=== PATIENT | female | born 1960 | race Caucasian/White ===

== ENCOUNTER → 2017-07-06 | Outpatient (CLI) | payer BC, OTHER | LOC: M RAD 10:33 | DX: Z12.31 Encounter for screening mammogram for malignant neoplasm of breast (principal) | CPT/HCPCS: 77067 ==

== ENCOUNTER → 2018-09-02 | Outpatient (CLI) | payer BC, OTHER ==
--- NOTE | 2018-09-02 10:20 | REPMRS ---
Patient History The patient states she has not had a clinical breast exam in over a year. Family history of endometrial cancer in mother. 3D TOMOSYNTHESIS WAS PERFORMED. Digital Mammo Screening Bilat: September 02, 2018 - Exam #: [id number] Bilateral CC and MLO view(s) were taken. Technologist: Macarena Haider, Technologist Prior study comparison: July 06, 2017, bilateral digital mammo screening bilat performed at [facility]. FINDINGS: There are scattered fibroglandular densities. There has been no change in the appearance of the mammogram from the prior studies. There is a mild amount of residual fibroglandular tissue which is fairly symmetric. There is no interval development of dominant mass, architectural distortion, or clustered microcalcification suggestive of malignancy. Assessment: BI-RADS/ACR category 1 mammogram. Negative Mammogram. Recommendation Routine screening mammogram in 1 year (for women over age 40). This mammogram was interpreted with the aid of an FDA-approved computer-aided dectection system. Electronically Signed By: Sean Tony MD 09/02/18 1835
== END ==
LOC: M RAD 09:01
PROVIDERS: ATTEND Internal Medicine
DX: Z12.31 Encounter for screening mammogram for malignant neoplasm of breast (principal)

== ENCOUNTER 2019-07-03 21:47 | Emergency (ER) | payer BC, OTHER ==
[~2019-07-03] VITALS: Ht 165.1 cm; Wt 110.5 kg
[2019-07-03] MEDS ORDERED: LEVO112T2 PO (21:58)
[2019-07-03] MEDS ORDERED: BREO1INH3 PO (21:58)
[2019-07-03] MEDS ORDERED: PANT20TA2 PO (23:31)
[2019-07-03] MEDS ORDERED: PRED20TA PO (23:53)
[2019-07-04 00:24] VITALS: BP 130/68
--- NOTE | 2019-07-04 01:16 | REP ---
Clinical: Trauma. Technique: AP, lateral, bilateral oblique and sunrise views of the left knee. Findings: Generalized age-related changes are appreciated. There is no evidence for acute fracture or dislocation. No obvious effusion. There is an ovoid somewhat lucent area within the tibial metaphysis demonstrating internal chondroid matrix which is not identifiable on prior examination. Lesion is otherwise nonspecific by current evaluation. Impression: 1. Generalized age-related changes without evidence for acute fracture or dislocation. 2. Somewhat lucent lesion with internal chondroid matrix in the tibial metaphyseal region which appears to represent a change from prior examination. Consider CT or MRI followup for further investigation. Electronically Signed by Júnior Paredes MD 07/04/2019 01:07 A
== END 2019-07-04 00:25 | disposition home or self-care (01) ==
LOC: M ED 21:47
DX: S89.92XA Unspecified injury of left lower leg, initial encounter (principal); R93.7 Abnormal findings on diagnostic imaging of other parts of musculoskeletal system; W00.0XXA Fall on same level due to ice and snow, initial encounter; Y92.511 Restaurant or cafe as the place of occurrence of the external cause; Y93.01 Activity, walking, marching and hiking; Z98.84 Bariatric surgery status; Z91.040 Latex allergy status; Z88.1 Allergy status to other antibiotic agents; Z79.899 Other long term (current) drug therapy; Z79.51 Long term (current) use of inhaled steroids

== ENCOUNTER → 2020-05-13 | Outpatient (CLI) | payer BC, OTHER ==
[~2020-05-13] MED LIST: BREO1INH3 PO; LEVO112T2 PO; PANT20TA6 PO; PRED20TA PO
== END ==
LOC: M LABSMTC 12:09
PROVIDERS: ATTEND Anesthesiology
DX: Z01.812 Encounter for preprocedural laboratory examination (principal); Z20.828 Contact with and (suspected) exposure to other viral communicable diseases

== ENCOUNTER 2020-05-18 07:13 | Day surgery (SDC) | payer BC, OTHER ==
[~2020-05-18] VITALS: Ht 165.1 cm; Wt 111.1 kg
[2020-05-18] MEDS: NS 1,000 ML IV ONE (08:29)
[2020-05-18] MEDS ORDERED: propofoL 200 MG/20 ML VIAL As Ordered ONE (08:40)
--- NOTE | 2020-05-18 09:25 | ROOR ---
Patient Name: Sabrina Dow-keating Procedure Date: 05/18/2020 8:37 AM Date of : 1960 Age: 59 Room: [facility] Gender: Female Note Status: Finalized Procedure: Colonoscopy Indications: Screening for colorectal malignant neoplasm Providers: Parminder White MD Referring MD: SAMINA PETERS MD Requesting Provider: Medicines: Monitored Anesthesia Care Complications: No immediate complications. Procedure: Pre-Anesthesia Assessment: - Prior to the procedure, a History and Physical was performed, and patient medications and allergies were reviewed. The patient is competent. The risks and benefits of the procedure and the sedation options and risks were discussed with the patient. All questions were answered and informed consent was obtained. Patient identification and proposed procedure were verified by the physician, the nurse and the anesthesiologist in the procedure room. Mental Status Examination: alert and oriented. Airway Examination: normal oropharyngeal airway and neck mobility. Respiratory Examination: clear to auscultation. CV Examination: normal. Prophylactic Antibiotics: The patient does not require prophylactic antibiotics. Prior Anticoagulants: The patient has taken no previous anticoagulant or antiplatelet agents. ASA Grade Assessment: II - A patient with mild systemic disease. After reviewing the risks and benefits, the patient was deemed in satisfactory condition to undergo the procedure. The anesthesia plan was to use monitored anesthesia care (MAC). Immediately prior to administration of medications, the patient was re-assessed for adequacy to receive sedatives. The heart rate, respiratory rate, oxygen saturations, blood pressure, adequacy of pulmonary ventilation, and response to care were monitored throughout the procedure. The physical status of the patient was re-assessed after the procedure. The Colonoscope was introduced through the anus and advanced to the terminal ileum, with identification of the appendiceal orifice and IC valve. The colonoscopy was performed without difficulty. The patient tolerated the procedure well. The quality of the bowel preparation was good. The terminal ileum, ileocecal valve, appendiceal orifice, and rectum were photographed. Scope insertion time was 3 minutes. Scope withdrawal time was 9 minutes. The total duration of the procedure was 12 minutes. Findings: The perianal and digital rectal examinations were normal. The terminal ileum appeared normal. Two sessile polyps were found in the transverse colon and ascending colon. The polyps were 6 to 8 mm in size. These polyps were removed with a cold snare. Resection and retrieval were complete. To close a defect after polypectomy, two hemostatic clips were successfully placed. There was no bleeding at the end of the procedure. Verification of patient identification for the specimen was done by the physician and nurse using the patient's name, date and medical record number. Estimated blood loss was minimal. The colon (entire examined portion) was moderately tortuous. Non-bleeding external and internal hemorrhoids were found during retroflexion. The hemorrhoids were medium-sized. Impression: - The examined portion of the ileum was normal. - Two 6 to 8 mm polyps in the transverse colon and in the ascending colon, removed with a cold snare. Resected and retrieved. Clips were placed. - Tortuous colon. - Non-bleeding external and internal hemorrhoids. Recommendation: - Patient has a contact number available for emergencies. The signs and symptoms of potential delayed complications were discussed with the patient. Return to normal activities tomorrow. Written discharge instructions were provided to the patient. - High fiber diet. - Continue present medications. - Await pathology results. - Repeat colonoscopy in 5-10 years for surveillance based on pathology results. - Telephone GI clinic for pathology results in 2 weeks. - Return to primary care physician. Procedure Code(s): --- Professional --- 97508, Colonoscopy, flexible; with removal of tumor(s), polyp(s), or other lesion(s) by snare technique Diagnosis Code(s): --- Professional --- Z12.11, Encounter for screening for malignant neoplasm of colon K64.8, Other hemorrhoids K63.5, Polyp of colon Q43.8, Other specified congenital malformations of intestine CPT copyright 2019 [employer] [place] [employer]. All rights reserved. The codes documented in this report are preliminary and upon car rental sales assistant review may be revised to meet current compliance requirements. Parminder White MD Parminder White MD 05/18/2020 9:25:33 AM Electronically signed by Parminder White MD Number of Addenda: 0 Note Initiated On: 05/18/2020 8:37 AM Estimated Blood Loss: Estimated blood loss was minimal.
[2020-05-18 09:30] VITALS: BP 137/73
== END 2020-05-18 09:45 | disposition home or self-care (01) ==
LOC: M OPP 07:13
PROVIDERS: ATTEND Internal Medicine Gastroenterology
DX: Z12.11 Encounter for screening for malignant neoplasm of colon (principal); K63.5 Polyp of colon; K64.8 Other hemorrhoids; Q43.8 Other specified congenital malformations of intestine; E03.9 Hypothyroidism, unspecified; Z79.899 Other long term (current) drug therapy; Z88.1 Allergy status to other antibiotic agents; Z88.5 Allergy status to narcotic agent; Z91.040 Latex allergy status

== ENCOUNTER 2020-06-25 15:07 | Inpatient (IN) | payer BC, OTHER ==
[~2020-06-25] VITALS: Ht 165.1 cm; Wt 111.2 kg
--- OUTSIDE RECORDS SUMMARY | 2020-06-25 15:14 | CCD | Continuity of Care Document ---
Author Author Sabrina BLAND RP A Organization Unknown Address 3 [facility] [address] [place] [address] Phone [phone] Problems Active Problems Provider Date Hypothyroidism Bruce Contreras M.D. Onset: 4 Anemia Bruce Contreras M.D. Onset: 4 Asthma without status asthmaticus Bruce Contreras M.D. On set: 02/21/2019 Social History Type Date Description Comments Sex Unknown ETOH Use Denies alcohol use Tobacco Use Start: Unknown Patient has never smoked Recreational Drug Use Denies Drug Use Allergies, Adverse Reactions, Alerts Active Allergies Reaction Severity Comments Date Biaxin burnt mouth causing skin to peel 11/13/2013 Latex ithcing sensitivity 01/15/2020 Bandaids Itching tape and bandaids 01/15/2020 Medications Active Medications SIG Qnty Indications Ordering Provide r Date Levofloxacin 500mg Tablets 1 by mouth every day 10tabs Gaurav Lagunas D.O., FAAFP Silvadene 1% Cream top to left leg twice a day 100gm Gaurav Lagunas D.O., FAAFP Geritol Complete Tablets 1 tab by mouth once a day otc Elena Foster FNP-CALI 0 Levothyroxine Sodium 125mcg Tablet s Take 1 Tablet By Mouth Every Day 90tabs Bruce Contreras M.D . 07/28/2019 Breo Ellipta 200-25mcg/Inh Aerosol Inhale 1 puff By Mouth Every Day 60units Bruce Contreras M.D . 01/16/2018 Voltaren 1% Gel apply bilateral to legs four times a day mdd 4 gm 100gm Bruce Contreras M.D . 07/31/2016 History Medications Nucynta 50mg Tablets 1 by mouth twice a day (Istop: [id number]) 14tabs Gaurav Lagunas D.O., Venkatesh [facility] 03/26/2020 - 04/02/2020 Keflex 500mg Capsules 1 tab by mouth three times a day for 10 days 30caps Gaurav Lagunas D.O., Venkatesh [facility] 03/24/2020 - 03/26/2020 Medications Administered in Office Medication SIG Qnty Indications Ordering Provider Date Injection (SC)/(Im) Injection Steve Bland RPA 03/24/2020 Immunizations CPT Code Status Date Vaccine Lot # [id number] Given 03/24/2020 Tdap Tetanus,Dip htheria Toxoids/Acellular Pertussis 7Yrs Or Older [id number] Given 03/02/2020 Influenza Virus Vaccine, Quadrivalent, Slit Virus, Im Use 3Y & Up Vital Signs Date Vital Result Comment 03/26/2020 10:51am BP Systolic 102 mmHg BP Diastolic 70 mmHg Body Temperature 98.0 F Heart Rate 87 /min Respiratory Rate 16 /min Height 65 inches 5'5" [place] Body Weight 125 lb O2 % BldC Oximetry 96 % 03/24/2020 12:04pm BP Systolic 124 mmHg BP Diastolic 64 mmHg Body Temperature 97.8 F Heart Rate 83 /min Respiratory Rate 16 /min Height 65 inches 5'5" Weight 246.00 lb [place] Body Weight 125 lb BMI (Body Mass Index) 40.9 kg/m2 O2 % BldC Oximetry 97 % Results Test Acquired Date Facility Test Result H/L Range Note Aerobic Bacterial Culture 03/24/2020 [facility] [place] Aerobic Bacterial Culture Final report 1 , 2 Result 1 See Comment: 3 Laboratory test finding 02/24/2020 [facility] TSH 4.500 ulU/mL 0.60 - 4.8 CMP 02/24/2020 [facility] Glu 98 mg/dL 70 - 110 4 BUN 13 mg/dL 8 - 23 Creat 0.7 mg/dL 0.5 - 1.0 BUN/Creatinine Ratio 17.5 CALC Na 140 mmol/L 136 - 145 K 4.5 mmol/L 3.5 - 5.1 CL 106.6 mmol/L 98.0 - 107.0 Co2 23.7 mmol/L 22.0 - 29.0 CA 9.0 mg/dL 8.6 - 10.2 TP 6.2 g/dL Low 6.6 - 8.7 Alb 4.3 g/dL 3.4 - 4.8 A/G Ratio 2.2 CALC Globulin 1.9 CALC Alp 80.4 U/L 35 - 129 Alt (SGPT) 20 U/L 0 - 41 Ast (Sgot) 19 U/L 0 - 40 Tbili 0.59 mg/dL 0.0 - 1.2 Osmolality-Calculated 279.6 CALC Anion Gap 14 mmol/L eGFR 109 # Calc 5 eGFR Non-Afr. Cambodian 94 # Calc 6 1 SRC:LEFT LEG WOUND 2 Source of Specimen: LEFT LEG WOUND 3 Source of Specimen: LEFT LEG WOUND No growth in 36 - 48 hours. 4 CHRONIC KIDNEY DISEASE STAGI NG PER NKF: MALE GFR INTERPRETATION: 20-49 YRS: >60 mL/min Normal 50-59 YRS: >56 mL/min Normal 60-69 YRS: >49 mL/min Normal 70-79 YRS: >42 mL/min Normal 80 and above >35 mL/min Normal FEMALE GRF INTERPRETATION: 20-39 YRS: >60 mL/min Normal 40-49 YRS: >58 mL/min Normal 50-59 YRS: >51 mL/min Normal 60-69 YRS: >45 mL/min Normal 70-79 YRS: >39 mL/min Normal 80 and above >32 mL/min Normal 5 CKD-EPI 6 CKD-EPI Procedures Date Code Description Status 03/24/2020 71994 Injection (SC)/(Im) Completed 01/15/2020 73725 Electrocardiogram Complete Compl eted 01/15/2020 52841 Electrocardiogram Complete Compl eted 09/02/2018 [id number] Mammogram Completed Medical Devices Description No Information Available Encounters Type Date Location Provider Dx Diagnosis Office Visit 03/26/2020 10:40a [place] [facility] Steve Bland, RP A L03.116 Cellulitis of left lower limb S80.812A Abrasion, left lower leg, in itial encounter Office Visit 03/24/2020 11:30a [facility] Steve Bland, RP A L03.116 Cellulitis of left lower limb S80.812A Abrasion, left lower leg, in itial encounter Office Visit 03/02/2020 11:00a [facility] Bruce Contreras M. D. E03.9 Hypothyroidism, unspecified J45.909 Unspecified asthma, uncompli cated Z23 Encounter for immunization Office Visit 01/15/2020 2:45p [facility] Elena Foster, BAILEY-B C Z01.818 Encounter for other preprocedural examination J45.909 Unspecified asthma, uncompli cated Z01.818 Encounter for other preproce dural examination M25.50 Pain in unspecified joint J45.909 Unspecified asthma, uncompli cated Office Visit 11/24/2019 3:40p [facility] Bruce Contreras M. D. M25.50 Pain in unspecified joint Assessments Date Code Description Provider 03/26/2020 L03.116 Cellulitis of left lower limb [place] Steve robledo, RPA 03/26/2020 S80.812A Abrasion, left lower leg, initia l encounter Steve Bland, RPA 03/24/2020 L03.116 Cellulitis of left lower limb [place] Steve robledo, RPA 03/24/2020 S80.812A Abrasion, left lower leg, initia l encounter Steve Bland, RPA 03/02/2020 E03.9 Hypothyroidism, unspecified [facility] Bruce acosta M.D. 03/02/2020 J45.909 Unspecified asthma, uncomplicate d Bruce Contreras M.D. 03/02/2020 Z23 Encounter for immunization [facility] Bruce otero M.D. 02/24/2020 E03.9 Hypothyroidism, unspecified Jasvir Lagunas D.O., FAAFP 02/24/2020 M25.50 Pain in unspecified joint Kalani Lagunas D.O., FAAFP 01/15/2020 Z01.818 Encounter for other preprocedura l examination Elena Foster FNP-CALI 01/15/2020 J45.909 Unspecified asthma, uncomplicate d Elena Foster FNP-BC 01/15/2020 Z01.818 Encounter for other preprocedura l examination Elena Foster FNP-BC 01/15/2020 M25.50 Pain in unspecified joint Elena Foster FNP- 01/15/2020 J45.909 Unspecified asthma, uncomplicate d Elena Foster FNP- 11/24/2019 M25.50 Pain in unspecified joint Bruce Yepez M.D. Plan of Treatment No Information Available Functional Status Description No Information Available Mental Status Description No Information Available Referrals Refer to Dr Reason for Referral Status Appt Date [facility] *Priority Referral [place] goldsmith circumferential tissue avulsion (16cm x 2cm) right leg from dog leash. Subsequent cellulitis. On Levaquin. Much pain. Negative C&S. Sent [address] [place] [address] [phone]
--- OUTSIDE RECORDS SUMMARY | 2020-06-25 15:14 | CCD | Continuity of Care Document ---
Author Author Sabrina CONTRERAS Organization Unknown Address [address] [address] Phone [phone] Problems Active Problems Provider Date Hypothyroidism Bruce [...] SIG Qnty Indications Ordering Provide r Date Naproxen Sodium 550mg Tablets one po bid 60tabs Bruce Contreras M.D. 2020 Silvadene 1% Cream top to left leg [...] Bruce Contreras M.D . 07/31/2016 History Medications Levofloxacin 500mg Tablets 1 by mouth every day 10tabs Gaurav Lagunas D.O., FAAFP - 04/05/2020 Nucynta 50mg Tablets 1 by mouth twice a day (Istop: [id number]) 14tabs Gaurav Lagunas D.O., F AAFP 03/26/2020 - 04/02/2020 Keflex 500mg Capsules 1 tab by mouth three times a day for 10 days 30caps Gaurav Lagunas D.O., F AA 03/24/2020 - 03/26/2020 Medications Administered in Office Medication SIG Qnty Indications Ordering Provider Date Injection (SC)/(Im) Injection Steve Bland RPA 03/24/2020 Immunizations CPT Code Status Date Vaccine Lot # [id number] Given 03/24/2020 Tdap Tetanus,Dip htheria Toxoids/Acellular Pertussis 7Yrs Or Older [id number] Given 03/02/2020 Influenza Virus Vaccine, Quadrivalent, Slit Virus, Im Use 3Y & Up Vital Signs Date Vital Result Comment 2020 10:07am BP Systolic 108 mmHg BP Diastolic 68 mmHg Body Temperature 98.0 F Heart Rate 50 /min Respiratory Rate 16 /min Height 65 inches 5'5" Weight 248.00 lb [place] Body Weight 125 lb BMI (Body Mass Index) 41.3 kg/m2 O2 % BldC Oximetry 96 % 03/26/2020 10:51am BP Systolic 102 mmHg BP Diastolic 70 mmHg Body Temperature 98.0 F Heart Rate 87 /min Respiratory Rate 16 /min Height 65 inches 5'5" [place] Body Weight 125 lb O2 % BldC Oximetry 96 % Results Test Acquired Date Facility Test [...] eGFR 109 # Calc 5 eGFR Non-Afr. Nauruan 94 # Calc 6 1 SRC:LEFT LEG [...] CKD-EPI Procedures Date Code Description Status 03/24/2020 65019 Injection (SC)/(Im) Completed 01/15/2020 89145 Electrocardiogram Complete Compl eted 01/15/2020 79522 Electrocardiogram Complete Compl eted 09/02/2018 [id number] Mammogram Completed Medical Devices Description No Information Available Encounters Type Date Location Provider Dx Diagnosis Office Visit 2020 9:30a [place] [facility] Bruce Contreras M.D . M79.672 Pain in left foot M25.552 Pain in left hip Office Visit 03/26/2020 10:40a [place] [facility] Steve Bland, RP A L03.116 Cellulitis of left lower limb S80.812A Abrasion, left lower leg, in itial encounter Office Visit 03/24/2020 11:30a [place] [facility] Steve Bland, RP A L03.116 Cellulitis of left lower limb S80.812A Abrasion, left lower leg, in itial encounter Office Visit 03/02/2020 11:00a [place] [facility] Bruce Contreras M. D. E03.9 Hypothyroidism, unspecified J45.909 Unspecified asthma, uncompli cated Z23 Encounter for immunization Office Visit 01/15/2020 2:45p [place] [facility] Rounds, Elena M, APPLICATIONS SYSTEMS ANALYST-B C Z01.818 Encounter for other preprocedural examination J45.909 Unspecified asthma, uncompli cated Z01.818 Encounter for other preproce dural examination M25.50 Pain in unspecified joint J45.909 Unspecified asthma, uncompli cated Assessments Date Code Description Provider 2020 M79.672 Pain in left foot Stewart Contreras M.D. 2020 M25.552 Pain in left hip Bruce Contreras M.D. 03/26/2020 L03.116 Cellulitis of left lower limb [place] Steve robledo, RPA 03/26/2020 S80.812A Abrasion, left lower leg, initia l encounter Steve Bland, RPA 03/24/2020 L03.116 Cellulitis of left lower limb Ca Steve robledo, RPA 03/24/2020 S80.812A Abrasion, left lower leg, initia l encounter Steve Bland, RPA 03/02/2020 E03.9 Hypothyroidism, unspecified [facility] Bruce acosta M.D. 03/02/2020 J45.909 Unspecified asthma, uncomplicate d Bruce Contreras M.D. 03/02/2020 Z23 Encounter for immunization Bruce Pena M.D. 02/24/2020 E03.9 Hypothyroidism, unspecified Jasvir Lagunas D.O., FAAFP 02/24/2020 M25.50 Pain in unspecified joint Kalani Lagunas D.O., FAAFP 01/15/2020 Z01.818 Encounter for other preprocedura l examination Rounds, Elena Ricci, [facility] 01/15/2020 J45.909 Unspecified asthma, uncomplicate d Rounds, Elena Ricci [facility] 01/15/2020 Z01.818 Encounter for other preprocedura l examination Rounds, [facility] 01/15/2020 M25.50 Pain in unspecified joint Rounds , Elena RicciWAGNERPPerlita 01/15/2020 J45.909 Unspecified asthma, uncomplicate d Rounds, Elena Ricci, [facility] Plan of Treatment Future Appointment(s):* 08/23/2020 8:45 am - Laboratory [place] Schedule at [facility] * 08/30/2020 10:20 am - Bruce Contreras M.D. at [facility] Functional Status Description No Information Available Mental Status Description No Information Available Referrals Refer to Reason for Referral Status Appt Date [facility] Podiatry Dr Torres, podiatry- left foot pain- eval and rx Sent Amna Torres M.D.--Podiatry [address] [place] [address] [phone] [facility] *Priority Referral Partia lly circumferential tissue avulsion (16cm x 2cm) right leg from dog leash. Subsequent cellulitis. On Levaquin. Much pain. Negative C&S[place] [address] [phone]
--- OUTSIDE RECORDS SUMMARY | 2020-06-25 15:14 | CCD | Continuity of Care Document ---
Author Author Sabrina CONTRERAS Organization Unknown Address [address] [address] Phone [phone] Problems Active Problems Provider Date Hypothyroidism Bruce [...] 1 by mouth twice a day (Istop: 868647050) 14tabs Gaurav Lagunas D.O., F AAFP 03/26/2020 - 04/02/2020 Keflex 500mg Capsules 1 tab by mouth three times a day for 10 days 30caps Gaurav Lagunas D.O., F AA 03/24/2020 - 03/26/2020 Medications Administered in Office Medication SIG Qnty Indications Ordering Provider Date Injection (SC)/(Im) Injection Steve Bland RPA 03/24/2020 Immunizations CPT Code Status Date Vaccine Lot # [id number] Given 03/24/2020 Tdap Tetanus,Dip htheria Toxoids/Acellular Pertussis 7Yrs Or Older [id number] Given 03/02/2020 Influenza Virus Vaccine, Quadrivalent, Slit Virus, Im Use 3Y & Up Vital Signs Date Vital Result Comment 2020 10:07am BP Systolic 108 mmHg BP Diastolic 68 mmHg Body Temperature 98.0 F Heart Rate 50 /min Respiratory Rate 16 /min Height 65 inches 5'5" Weight 248.00 lb [place] Body Weight 125 lb BMI (Body Mass Index) 41.3 kg/m2 O2 % BldC Oximetry 96 % 03/26/2020 10:51am BP Systolic 102 mmHg BP Diastolic 70 mmHg Body Temperature 98.0 F Heart Rate 87 /min Respiratory Rate 16 /min Height 65 inches 5'5" [place] Body Weight 125 lb O2 % BldC [...] eGFR 109 # Calc 5 eGFR Non-Afr. Danish 94 # Calc 6 1 SRC:LEFT LEG [...] CKD-EPI Procedures Date Code Description Status 03/24/2020 95196 Injection (SC)/(Im) Completed 01/15/2020 15862 Electrocardiogram Complete Compl eted 01/15/2020 47447 Electrocardiogram Complete Compl eted 09/02/2018 38570064 Mammogram Completed Medical Devices Description No Information Available Encounters Type Date Location Provider Dx Diagnosis Office Visit 2020 9:30a [place] [facility] Bruce Contreras M.D . M79.672 Pain in left foot M25.552 Pain in left hip Office Visit 03/26/2020 10:40a [place] [facility] Steve Bland, RP A L03.116 Cellulitis of left lower limb S80.812A Abrasion, left lower leg, in itial encounter Office Visit 03/24/2020 11:30a [place] [facility] Steve Bland, RP A L03.116 Cellulitis of left lower limb S80.812A Abrasion, left lower leg, in itial encounter Office Visit 03/02/2020 11:00a [place] [facility] Bruce Contreras M. D. E03.9 Hypothyroidism, unspecified J45.909 Unspecified asthma, uncompli cated Z23 Encounter for immunization Office Visit 01/15/2020 2:45p [place] [facility] Rounds, Elena M, MEDICAL DIRECTOR/HEAD TEAM PHYSICIAN-B C Z01.818 Encounter for other preprocedural examination [...] 03/24/2020 L03.116 Cellulitis of left lower limb [facility] Steve robledo, RPA 03/24/2020 S80.812A Abrasion, left lower leg, initia l encounter Steve Bland, RPA 03/02/2020 E03.9 Hypothyroidism, unspecified [facility] Bruce acosta M.D. 03/02/2020 J45.909 Unspecified asthma, uncomplicate d Bruce Contreras M.D. 03/02/2020 Z23 Encounter for immunization Bruce Pena M.D. 02/24/2020 E03.9 Hypothyroidism, unspecified Jasvir Lagunas D.O., FAAFP 02/24/2020 M25.50 Pain in unspecified joint Kalani Lagunas D.O., FAAFP 01/15/2020 Z01.818 Encounter for other preprocedura l examination Rounds, [facility] 01/15/2020 J45.909 Unspecified asthma, uncomplicate d Rounds, Elena Ricci [facility] 01/15/2020 Z01.818 Encounter for other preprocedura l examination Rounds, [facility] 01/15/2020 M25.50 Pain in unspecified joint Rounds , Elena RicciWAGNERPPerlita 01/15/2020 J45.909 Unspecified asthma, uncomplicate d Rounds, Elena Ricci, [facility] Plan of Treatment Future Appointment(s):* 08/23/2020 8:45 am - Laboratory [place] Schedule at [facility] * 08/30/2020 10:20 am - Bruce Contreras M.D. at [facility] Functional Status Description No Information Available Mental Status Description No Information Available Referrals Refer to Reason for Referral Status Appt Date Dr Torres podiatry- left foot pain- eval and rx Created [facility] *Priority Referral [place] lly circumferential tissue avulsion (16cm x 2cm) right leg from dog leash. Subsequent cellulitis. On Levaquin. Much pain. Negative C&S. Sent [address] [place], [place] [address] [phone]
--- OUTSIDE RECORDS SUMMARY | 2020-06-25 15:14 | CCD | Continuity of Care Document ---
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 Unknown Advil 200mg Tablets 4 by mouth every day- otc as needed Unknown Breo Ellipta 100-25mcg/Inh Aerosol take 1 puff each day. Unknown Naproxen Sodium 550mg Tablets 1 by mouth twice daily as needed for pain Unknown 0 Immunizations Description No Information Available Vital Signs Description No Information Available Results Description No Information Available Procedures Description No Information Available Medical Devices Description No Information Available Encounters Description No Information Available Assessments Description No Information Available Plan of Treatment No Information Available Functional Status Functional Condition Comment Date Status Glasses Active Mental Status Description No Information Available Referrals Description No Information Available
--- OUTSIDE RECORDS SUMMARY | 2020-06-25 15:14 | CCD ---
Author Author [facility] Organization [facility] Address Unknown Phone Unavailable Care Team Providers Care Delivery Coordinator Name Role Phone Isidroneida Rudolph Unavailable PROBLEMS Type Condition ICD9-CM Code [id number] Code Onset Dates Condition S tatus SNOMED Code Notes Problem Pain of left hand M79.642 Active [id number] 3 Problem Pain in right hand M79.641 Active [id number] ALLERGIES Allergen (clinical drug ingredient) Drug/Non Drug Allergy do cumented on EMR Reaction Allergy Type Onset Date Status Environmental Unknown Non Drug Allergy Activ e clarithromycin Biaxin Mouth Sores/peeling skin Drug Allergy Active All oral narcotics (per patient) Nausea/Vomiting Non Drug Allergy Active ENCOUNTERS from 1960 to 2020-04-28 Encounter Location Date Provider Diagnosis [facility] [address] [place] [address] Apr Rudolph Lynn IMMUNIZATIONS No Information SOCIAL HISTORY Tobacco Use: Social History Observation Description Date Details (start date - stop date) Never Smoker Sex Assigned At : Social History Observation Description Sex Assigned At Unknown Alcohol Screening: Question Answer Notes Did you have a drink containing alcohol in the past year? No Points 0 Interpretation Negative Tobacco Use: Question Answer Notes Are you a: never smoker REASON FOR REFERRAL No Information VITAL SIGNS No information MEDICATIONS Medication SIG (Take, Route, Frequency, Duration) Notes Start Da te End Date Status Breo Ellipta 100-25 MCG/INH 1 puff Inhalation Once a day Active Voltaren 1 % Transdermal Active Claritin 10 MG 1 tablet Orally Once a day Not-Taking Meloxicam 7.5 MG 1 tablet Orally Once a day Not-Taking Synthroid 125 MCG 1 tablet on an empty stomach in the morn ing Orally Once a day Active PROCEDURES No Information RESULTS No Results REASON FOR VISIT Cancelation of Apt. MEDICAL (GENERAL) HISTORY Type Description Date Medical History Anemia Medical History Hypothyroidism Surgical History Right knee 2005 & 2012 Surgical History Right shoulder 2005 Surgical History Gastric Bypass 2006 Surgical History Right knee Replacement 12/2013 Surgical History Tonsillectomy Surgical History Tubal Ligation Surgical History Left shoulder 2016 Goals Section No Information Health Concerns No Information MEDICAL EQUIPMENT No Information MENTAL STATUS No Information FUNCTIONAL STATUS No Information ASSESSMENTS No Information PLAN OF TREATMENT No Information Insurance Providers Payer Name Payer Address Payer Phone Insured Name Patient Relati onship to Insured Coverage Start Date Coverage End Date [facility] [id number] [facility] [id number] [place]
--- OUTSIDE RECORDS SUMMARY | 2020-06-25 15:15 | CCD ---
Author Author [facility] Organization [facility] Address Unknown Phone Unavailable Care Team Providers Care Erector Operator Name Role Phone Josué CONTRERAS MD Unavailable Unavailable Josué CONTRERAS MD Unavailable Unavailable Josué CONTRERAS MD Unavailable Unavailable Josué CONTRERAS MD Unavailable Unavailable Josué CONTRERAS MD Unavailable Unavailable Josué CONTRERAS MD Unavailable Unavailable Josué CONTRERAS MD Unavailable Unavailable Josué CONTRERAS MD Unavailable Unavailable Josué CONTRERAS MD Unavailable Unavailable Josué CONTRERAS MD Unavailable Unavailable Josué CONTRERAS MD Unavailable Unavailable Josué CONTRERAS MD Unavailable Unavailable Josué CONTRERAS MD Unavailable Unavailable Josué CONTRERAS MD Unavailable Unavailable Josué CONTRERAS MD Unavailable Unavailable Josué CONTRERAS MD Unavailable Unavailable Josué CONTRERAS MD Unavailable Unavailable Josué CONTRERAS MD Unavailable Unavailable Josué CONTRERAS MD Unavailable Unavailable Josué CONTRERAS MD Unavailable Unavailable Josué CONTRERAS MD Unavailable Unavailable Josué CONTRERAS MD Unavailable Unavailable Josué CONTRERAS MD Unavailable Unavailable Josué CONTRERAS MD Unavailable Unavailable Josué CONTRERAS MD Unavailable Unavailable Josué CONTRERAS MD Unavailable Unavailable Josué CONTRERAS MD Unavailable Unavailable Josué CONTRERAS MD Unavailable Unavailable Josué CONTRERAS MD Unavailable Unavailable Josué CONTRERAS MD Unavailable Unavailable Josué CONTRERAS MD Unavailable Unavailable Josué CONTRERAS MD Unavailable Unavailable Josué CONTRERAS MD Unavailable Unavailable Josué CONTRERAS MD Unavailable Unavailable Josué CONTRERAS MD Unavailable Unavailable Josué CONTRERAS MD Unavailable Unavailable Josué CONTRERAS MD Unavailable Unavailable Josué CONTRERAS MD Unavailable Unavailable Josué CONTRERAS MD Unavailable Unavailable Josué CONTRERAS MD Unavailable Unavailable Josué CONTRERAS MD Unavailable Unavailable Josué CONTRERAS MD Unavailable Unavailable Josué CONTRERAS MD Unavailable Unavailable Josué CONTRERAS MD Unavailable Unavailable Josué CONTRERAS MD Unavailable Unavailable Josué CONTRERAS MD Unavailable Unavailable Josué CONTRERAS MD Unavailable Unavailable Josué CONTRERAS MD Unavailable Unavailable Josué CONTRERAS MD Unavailable Unavailable Josué CONTRERAS MD Unavailable Unavailable Josué CONTRERAS MD Unavailable Unavailable Josué CONTRERAS MD Unavailable Unavailable Josué CONTRERAS MD Unavailable Unavailable Josué CONTRERAS MD Unavailable Unavailable Josué CONTRERAS MD Unavailable Unavailable Josué CONTRERAS MD Unavailable Unavailable Josué CONTRERAS MD Unavailable Unavailable Josué CONTRERAS MD Unavailable Unavailable Josué CONTRERAS MD Unavailable Unavailable Josué CONTRERAS MD Unavailable Unavailable Josué CONTRERAS MD Unavailable Unavailable Josué CONTRERAS MD Unavailable Unavailable Josué CONTRERAS MD Unavailable Unavailable Josué CONTRERAS MD Unavailable Unavailable Josué CONTRERAS MD Unavailable Unavailable Josué CONTRERAS MD Unavailable Unavailable Josué CONTRERAS MD Unavailable Unavailable Josué CONTRERAS MD Unavailable Unavailable Josué CONTRERAS MD Unavailable Unavailable Josué CONTRERAS MD Unavailable Unavailable Josué CONTRERAS MD Unavailable Unavailable Josué CONTRERAS MD Unavailable Unavailable Josué CONTRERAS MD Unavailable Unavailable Josué CONTRERAS MD Unavailable Unavailable Josué CONTRERAS MD Unavailable Unavailable VY, J ALEX DPM PC Unavailable Unavailable VY, J ALEX DPM PC Unavailable Unavailable VY, J ALEX DPM PC Unavailable Unavailable VY, J ALEX DPM PC Unavailable Unavailable VY, J ALEX DPM PC Unavailable Unavailable VY, J ALEX DPM PC Unavailable Unavailable VY, J ALEX DPM PC Unavailable Unavailable VY, J ALEX DPM PC Unavailable Unavailable VY, J ALEX DPM PC Unavailable Unavailable VY, J ALEX DPM PC Unavailable Unavailable VY, J ALEX DPM PC Unavailable Unavailable VY, J ALEX DPM PC Unavailable Unavailable VY, J ALEX DPM PC Unavailable Unavailable VY J ALEX DPM PC Unavailable Unavailable VY, J ALEX DPM PC Unavailable Unavailable VY, J ALEX DPM PC Unavailable Unavailable VY J ALEX DPM PC Unavailable Unavailable VY, J ALEX DPM PC Unavailable Unavailable VY J ALEX DPM PC Unavailable Unavailable VY J ALEX DPM PC Unavailable Unavailable VY, J ALEX DPM PC Unavailable Unavailable VY, J ALEX DPM PC Unavailable Unavailable VY J ALEX DPM PC Unavailable Unavailable VY, J ALEX DPM PC Unavailable Unavailable VY, J ALEX DPM PC Unavailable Unavailable Edwina, D Steve PA Unavailable Unavailable Edwina, D Steve PA Unavailable Unavailable Edwina, D Steve PA Unavailable Unavailable Edwina, D Steve PA Unavailable Unavailable Edwina, D Steve PA Unavailable Unavailable Edwina, D Steve PA Unavailable Unavailable Edwina, D Steve PA Unavailable Unavailable Edwina, D Steve PA Unavailable Unavailable Edwina, D Steve PA Unavailable Unavailable Edwina, D Steve PA Unavailable Unavailable Edwina, D Steve PA Unavailable Unavailable Edwina, D Steve PA Unavailable Unavailable Edwina, D Steve PA Unavailable Unavailable Edwina, D Steve PA Unavailable Unavailable Edwina, D Steve PA Unavailable Unavailable Edwina, D Steve PA Unavailable Unavailable Edwina, D Steve PA Unavailable Unavailable Edwina, D Steve PA Unavailable Unavailable Edwina, D Steve PA Unavailable Unavailable Edwina, D Steve PA Unavailable Unavailable Edwina, D Steve PA Unavailable Unavailable Edwina, D Steve PA Unavailable Unavailable Edwina, D Steve PA Unavailable Unavailable Edwina, D Steve PA Unavailable Unavailable Edwina, D Steve PA Unavailable Unavailable Edwina, D Steve PA Unavailable Unavailable Edwina, D Steve PA Unavailable Unavailable Edwina, D Steve PA Unavailable Unavailable Edwina, D Steve PA Unavailable Unavailable Edwina, D Steve PA Unavailable Unavailable Edwina, D Steve PA Unavailable Unavailable Edwina, D Steve PA Unavailable Unavailable Edwina, D Steve PA Unavailable Unavailable Edwina, D Steve PA Unavailable Unavailable Edwina, D Steve PA Unavailable Unavailable Edwina, D Steve PA Unavailable Unavailable Edwina, D Steve PA Unavailable Unavailable Edwina, D Steve PA Unavailable Unavailable Edwina, D Steve PA Unavailable Unavailable Edwina, D Steve PA Unavailable Unavailable Edwina, D Steve PA Unavailable Unavailable Edwina, D Steve PA Unavailable Unavailable Edwina, D Steve PA Unavailable Unavailable Edwina, D Steve PA Unavailable Unavailable Edwina, D Steve PA Unavailable Unavailable Edwina, D Steve PA Unavailable Unavailable Edwina, D Steve PA Unavailable Unavailable Edwina, D Steve PA Unavailable Unavailable Edwina, D Steve PA Unavailable Unavailable Edwina, D Steve PA Unavailable Unavailable Edwina, D Steve PA Unavailable Unavailable Edwnia, D Steve PA Unavailable Unavailable Edwina, D Steve PA Unavailable Unavailable Edwina, D Steve PA Unavailable Unavailable Edwina, D Steve PA Unavailable Unavailable Edwina, D Steve PA Unavailable Unavailable Edwina, D Steve PA Unavailable Unavailable Edwina, D Steve PA Unavailable Unavailable Edwina, D Steve PA Unavailable Unavailable Edwina, D Steve PA Unavailable Unavailable Edwina, D Steve PA Unavailable Unavailable Edwina, D Steve PA Unavailable Unavailable Edwina, D Steve PA Unavailable Unavailable Josué CONTRERAS MD Unavailable Unavailable Josué CONTRERAS MD Unavailable Unavailable Josué CONTRERAS MD Unavailable Unavailable Josué CONTRERAS MD Unavailable Unavailable Josué CONTRERAS MD Unavailable Unavailable Josué CONTRERAS MD Unavailable Unavailable Josué CONTRERAS MD Unavailable Unavailable Josué CONTRERAS MD Unavailable Unavailable Josué CONTRERAS MD Unavailable Unavailable Josué CONTRERAS MD Unavailable Unavailable Josué CONTRERAS MD Unavailable Unavailable Josué CONTRERAS MD Unavailable Unavailable Josué CONTRERAS MD Unavailable Unavailable Josué CONTRERAS MD Unavailable Unavailable Josué CONTRERAS MD Unavailable Unavailable Josué CONTRERAS MD Unavailable Unavailable Josué CONTRERAS MD Unavailable Unavailable Josué CONTRERAS MD Unavailable Unavailable Josué CONTRERAS MD Unavailable Unavailable Josué CONTRERAS MD Unavailable Unavailable Josué CONTRERAS MD Unavailable Unavailable Josué CONTRERAS MD Unavailable Unavailable Josué CONTRERAS MD Unavailable Unavailable Josué CONTRERAS MD Unavailable Unavailable Josué CONTRERAS MD Unavailable Unavailable Josué CONTRERAS MD Unavailable Unavailable Josué CONTRERAS MD Unavailable Unavailable Josué CONTRERAS MD Unavailable Unavailable Josué CONTRERAS MD Unavailable Unavailable Josué CONTRERAS MD Unavailable Unavailable Josué CONTRERAS MD Unavailable Unavailable Josué CONTERRAS MD Unavailable Unavailable Josué CONTRERAS MD Unavailable Unavailable Josué CONTRERAS MD Unavailable Unavailable Josué CONTRERAS MD Unavailable Unavailable Josué CONTRERAS MD Unavailable Unavailable Josué CONTRERAS MD Unavailable Unavailable Josué CONTRERAS MD Unavailable Unavailable Josué CONTRERAS MD Unavailable Unavailable Josué CONTRERAS MD Unavailable Unavailable Josué CONTRERAS MD Unavailable Unavailable Josué CONTRERAS MD Unavailable Unavailable Josué CONTRERAS MD Unavailable Unavailable LORRAINE, H BRUCE MD Unavailable Unavailable LORRAINE, H BRUCE MD Unavailable Unavailable LORRAINE, H BRUCE MD Unavailable Unavailable LORRAINE, H BRUCE MD Unavailable Unavailable LORRAINE, H BRUCE MD Unavailable Unavailable LORRAINE, H BRUCE MD Unavailable Unavailable LORRAINE, H BRUCE MD Unavailable Unavailable LORRAINE, H BRUCE MD Unavailable Unavailable LORRAINE, H BRUCE MD Unavailable Unavailable LORRAINE, H BRUCE MD Unavailable Unavailable LORRAINE, H BRUCE MD Unavailable Unavailable LORRAINE, H BRUCE MD Unavailable Unavailable LORRAINE, H BRUCE MD Unavailable Unavailable LORRAINE, H BRUCE MD Unavailable Unavailable LORRAINE, H BRUCE MD Unavailable Unavailable LORRAINE, H BRUCE MD Unavailable Unavailable LORRAINE, H BRUCE MD Unavailable Unavailable LORRAINE, H BRUCE MD Unavailable Unavailable LORRAINE, H BRUCE MD Unavailable Unavailable LORRAINE, H BRUCE MD Unavailable Unavailable LORRAINE, H BRUCE MD Unavailable Unavailable LORRAINE, H BRUCE MD Unavailable Unavailable LORRAINE, H BRUCE MD Unavailable Unavailable LORRAINE, H BRUCE MD Unavailable Unavailable LORRAINE, H BRUCE MD Unavailable Unavailable LORRAINE, H BRUCE MD Unavailable Unavailable LORRAINE, H BRUCE MD Unavailable Unavailable LORRAINE, H BRUCE MD Unavailable Unavailable LORRAINE, H BRUCE MD Unavailable Unavailable LORRAINE, H BRUCE MD Unavailable Unavailable LORRAINE, H BRUCE MD Unavailable Unavailable LORRAINE, H BRUCE MD Unavailable Unavailable [place], A Ana PA Unavailable Unavailable [place], A Ana PA Unavailable Unavailable [place], A Ana PA Unavailable Unavailable [place], A Ana PA Unavailable Unavailable [place], A Ana PA Unavailable Unavailable Radha, A Ana PA Unavailable Unavailable Radha, A Ana PA Unavailable Unavailable Radha, A Ana PA Unavailable Unavailable Radha, A Ana PA Unavailable Unavailable Radha, A Ana PA Unavailable Unavailable [place], A Ana PA Unavailable Unavailable Radha, A Ana PA Unavailable Unavailable Radha, A Ana PA Unavailable Unavailable [place], A Ana PA Unavailable Unavailable Radha, A Ana PA Unavailable Unavailable [place], A Ana PA Unavailable Unavailable Radha, A Ana PA Unavailable Unavailable Radha, A Ana PA Unavailable Unavailable [place], A Ana PA Unavailable Unavailable Radha, A Ana PA Unavailable Unavailable Radha, A Ana PA Unavailable Unavailable Radha, A Ana PA Unavailable Unavailable [place], A Ana PA Unavailable Unavailable Radha, A Ana PA Unavailable Unavailable [place], A Ana PA Unavailable Unavailable [place], A Ana PA Unavailable Unavailable [place], A Ana PA Unavailable Unavailable Radha, A Ana PA Unavailable Unavailable Radha, A Ana PA Unavailable Unavailable Radha, A Ana PA Unavailable Unavailable MOYER, M SHIV SIDER Unavailable Unavailable MOYER, M SHIV SIDER Unavailable Unavailable MOYER, M SHIV SIDER Unavailable Unavailable MOYER, M SHIV SIDER Unavailable Unavailable MOYER, M SHIV SIDER Unavailable Unavailable MOYER, M SHIV SIDER Unavailable Unavailable MOYER, M SHIV SIDER Unavailable Unavailable MOYER, M SHIV SIDER Unavailable Unavailable MOYER, M SHIV SIDER Unavailable Unavailable MOYER, M SHIV SIDER Unavailable Unavailable MOYER, M SHIV SIDER Unavailable Unavailable MOYER, M SHIV SIDER Unavailable Unavailable MOYER, M SHIV SIDER Unavailable Unavailable MOYER, M SHIV SIDER Unavailable Unavailable MOYER, M SHIV SIDER Unavailable Unavailable MOYER, M SHIV SIDER Unavailable Unavailable MOYER, M SHIV SIDER Unavailable Unavailable MOYER, M SHIV SIDER Unavailable Unavailable MOYER, M SHIV SIDER Unavailable Unavailable MOYER, M SHIV SIDER Unavailable Unavailable MOYER, M SHIV SIDER Unavailable Unavailable MOYER, M SHIV SIDER Unavailable Unavailable MOYER, M SHIV SIDER Unavailable Unavailable MOYER, M SHIV SIDER Unavailable Unavailable MOYER, M SHIV SIDER Unavailable Unavailable MOYER, M SHIV SIDER Unavailable Unavailable MOYER, M SHIV SIDER Unavailable Unavailable MOYER, M SHIV SIDER Unavailable Unavailable MOYER, M SHIV SIDER Unavailable Unavailable MOYER, M SHIV SIDER Unavailable Unavailable MOYER, M SHIV SIDER Unavailable Unavailable MOYER, M SHIV SIDER Unavailable Unavailable MOYER, M SHIV SIDER Unavailable Unavailable MOYER, M SHIV SIDER Unavailable Unavailable MOYER, M SHIV SIDER Unavailable Unavailable MOYER, M SHIV SIDER Unavailable Unavailable MOYER, M SHIV SIDER Unavailable Unavailable MOYER, M SHIV SIDER Unavailable Unavailable MOYER, M SHIV SIDER Unavailable Unavailable MOYER, M SHIV SIDER Unavailable Unavailable MOYER, M SHIV SIDER Unavailable Unavailable MOYER, M SHIV SIDER Unavailable Unavailable MOYER, M SHIV SIDER Unavailable Unavailable MOYER, M SHIV SIDER Unavailable Unavailable MOYER, M SHIV SIDER Unavailable Unavailable MOYER, M SHIV SIDER Unavailable Unavailable MOYER, M SHIV SIDER Unavailable Unavailable MOYER, M SHIV SIDER Unavailable Unavailable MOYER, M SHIV SIDER Unavailable Unavailable MOYER, M SHIV SIDER Unavailable Unavailable MOYER, M SHIV SIDER Unavailable Unavailable MOYER, M SHIV SIDER Unavailable Unavailable MOYER, M SHIV SIDER Unavailable Unavailable MOYER M SHIV SIDER Unavailable Unavailable MOYER M SHIV SIDER Unavailable Unavailable MOYER M SHIV SIDER Unavailable Unavailable MOYER M SHIV SIDER Unavailable Unavailable MOYER, M SHIV SIDER Unavailable Unavailable ISAAC DRIVER MD Unavailable Unavailable ISAAC DRIVER MD Unavailable Unavailable ISAAC DRIVER MD Unavailable Unavailable ISAAC DRIVER MD Unavailable Unavailable ISAAC DRIVER MD Unavailable Unavailable ISAAC DRIVER MD Unavailable Unavailable ISAAC DRIVER MD Unavailable Unavailable ISAAC DRIVER MD Unavailable Unavailable ISAAC DRIVER MD Unavailable Unavailable ISAAC DRIVER MD Unavailable Unavailable ISAAC DRIVER MD Unavailable Unavailable ISACA DRIVER MD Unavailable Unavailable ISAAC DRIVER MD Unavailable Unavailable ISAAC DRIVER MD Unavailable Unavailable ISAAC DRIVER MD Unavailable Unavailable ISAAC DRIVER MD Unavailable Unavailable ISAAC DRIVER MD Unavailable Unavailable ISAAC DRIVER MD Unavailable Unavailable ISAAC DRIVER MD Unavailable Unavailable ISAAC DRIVER MD Unavailable Unavailable ISAAC DRIVER MD Unavailable Unavailable Hugo RAMIREZ MD Unavailable Unavailable Hugo RAMIREZ MD Unavailable Unavailable Hugo RAMIREZ MD Unavailable Unavailable Hugo RAMIREZ MD Unavailable Unavailable Hugo RAMIREZ MD Unavailable Unavailable Hugo RAMIREZ MD Unavailable Unavailable Hugo RAMIREZ MD Unavailable Unavailable Hugo RAMIREZ MD Unavailable Unavailable Hugo RAMIREZ MD Unavailable Unavailable Hugo RAMIREZ MD Unavailable Unavailable Hugo RAMIREZ MD Unavailable Unavailable Hugo RAMRIEZ MD Unavailable Unavailable Hugo RAMIREZ MD Unavailable Unavailable Hugo RAMIREZ MD Unavailable Unavailable Hugo RAMIREZ MD Unavailable Unavailable Hugo RAMIREZ MD Unavailable Unavailable Hugo RAMIREZ MD Unavailable Unavailable Hugo RAMIREZ MD Unavailable Unavailable Hugo RAMIREZ MD Unavailable Unavailable Hugo RAMIREZ MD Unavailable Unavailable Hugo RAMIREZ MD Unavailable Unavailable Hugo RAMIREZ MD Unavailable Unavailable Hugo RAMIREZ MD Unavailable Unavailable Hugo RAMIREZ MD Unavailable Unavailable GREENKY, B DELMY MD Unavailable Unavailable GREENKY, B DELMY MD Unavailable Unavailable GREENKY, B DELMY MD Unavailable Unavailable GREENKY, B DELMY MD Unavailable Unavailable GREENKY, B DELMY MD Unavailable Unavailable GREENKY, B DELMY MD Unavailable Unavailable GREENKY, B DELMY MD Unavailable Unavailable GREENKY, B DELMY MD Unavailable Unavailable GREENKY, B DELMY MD Unavailable Unavailable GREENKY, B DELMY MD Unavailable Unavailable GREENKY, B DELMY MD Unavailable Unavailable GREENKY, B DELMY MD Unavailable Unavailable GREENKY, B DELMY MD Unavailable Unavailable GREENKY, B DELMY MD Unavailable Unavailable GREENKY, B DELMY MD Unavailable Unavailable GREENKY, B DELMY MD Unavailable Unavailable GREENKY, B DELMY MD Unavailable Unavailable GREENKY, B DELMY MD Unavailable Unavailable GREENKY, B DELMY MD Unavailable Unavailable GREENKY, B DELMY MD Unavailable Unavailable GREENKY, B DELMY MD Unavailable Unavailable GREENKY, B DELMY MD Unavailable Unavailable GREENKY, B DELMY MD Unavailable Unavailable GREENKY, B DELMY MD Unavailable Unavailable GREENKY, B DELMY MD Unavailable Unavailable GREENKY, B DELMY MD Unavailable Unavailable GREENKY, B DELMY MD Unavailable Unavailable GREENKY, B DELMY MD Unavailable Unavailable GREENKY, B DELMY MD Unavailable Unavailable GREENKY, B DELMY MD Unavailable Unavailable GREENKY, B DELMY MD Unavailable Unavailable GREENKY, B DELMY MD Unavailable Unavailable GREENKY, B DELMY MD Unavailable Unavailable GREENKY, B DELMY MD Unavailable Unavailable GREENKY, B DELMY MD Unavailable Unavailable GREENKY, B DELMY MD Unavailable Unavailable GREENKY, B DELMY MD Unavailable Unavailable GREENKY, B DELMY MD Unavailable Unavailable GREENKY, B DELMY MD Unavailable Unavailable GREENKY, B DELMY MD Unavailable Unavailable GREENKY, B DELMY MD Unavailable Unavailable GREENKY, B DELMY MD Unavailable Unavailable GREENKY, B DELMY MD Unavailable Unavailable GREENKY, B DELMY MD Unavailable Unavailable GREENKY, B DELMY MD Unavailable Unavailable GREENKY, B DELMY MD Unavailable Unavailable GREENKY, B DELMY MD Unavailable Unavailable GREENKY, B DELMY MD Unavailable Unavailable GREENKY, B DELMY MD Unavailable Unavailable GREENKY, B DELMY MD Unavailable Unavailable GREENKY, B DELMY MD Unavailable Unavailable GREENKY, B DELMY MD Unavailable Unavailable GREENKY, B DELMY MD Unavailable Unavailable GREENKY, B DELMY MD Unavailable Unavailable GREENKY, B DELMY MD Unavailable Unavailable GREENKY, B DELMY MD Unavailable Unavailable GREENKY, B DELMY MD Unavailable Unavailable GREENKY, B DELMY MD Unavailable Unavailable GREENKY, B DELMY MD Unavailable Unavailable GREENKY, B DELMY MD Unavailable Unavailable GREENKY, B DELMY MD Unavailable Unavailable GREENKY, B DELMY MD Unavailable Unavailable GREENKY, B DELMY MD Unavailable Unavailable GREENKY, B DELMY MD Unavailable Unavailable GREENKY, B DELMY MD Unavailable Unavailable Ramu, Rudolph DPM Unavailable Unavailable Ramu, Rudolph DPM Unavailable Unavailable Ramu, Rudolph DPM Unavailable Unavailable Ramu, Rudolph DPM Unavailable Unavailable Ramu, Rudolph DPM Unavailable Unavailable Ramu, Rudolph DPM Unavailable Unavailable Ramu, Rudolph DPM Unavailable Unavailable Ramu, Rudolph DPM Unavailable Unavailable Ramu, Rudolph DPM Unavailable Unavailable Ramu, Rudolph DPM Unavailable Unavailable Ramu, Rudolph DPM Unavailable Unavailable Ramu, Rudolph DPM Unavailable Unavailable Ramu, Rudolph DPM Unavailable Unavailable Ramu, Rudolph DPM Unavailable Unavailable Ramu, Rudolph DPM Unavailable Unavailable Ramu, Rudolph DPM Unavailable Unavailable Ramu, Rudolph DPM Unavailable Unavailable Ramu, Rudolph DPM Unavailable Unavailable Ramu, Rudolph DPM Unavailable Unavailable Ramu, Rudolph DPM Unavailable Unavailable Ramu, Rudolph DPM Unavailable Unavailable Ramu, Rudolph DPM Unavailable Unavailable Ramu, Rudolph DPM Unavailable Unavailable Ramu, Rudolph DPM Unavailable Unavailable Ramu, Rudolph DPM Unavailable Unavailable Ramu, Rudolph DPM Unavailable Unavailable Ramu, Rudolph DPM Unavailable Unavailable Ramu, Rudolph DPM Unavailable Unavailable Ramu, Rudolph DPM Unavailable Unavailable Ramu, Rudolph DPM Unavailable Unavailable Ramu, Rudolph DPM Unavailable Unavailable Ramu, Rudolph DPM Unavailable Unavailable Re-disclosure Warning The records that you are about to access may contain information from federally-assisted alcohol or drug abuse programs. If such information is present, then the following federally mandated warning applies: This information has been disclosed to you from records protected by federal confidentiality rules (42 CFR part 2). The federal rules prohibit you from making any further disclosure of this information unless further disclosure is expressly permitted by the written consent of the person to whom it pertains or as otherwise permitted by 42 CFR part 2. A general authorization for the release of medical or other information is NOT sufficient for this purpose. The Federal rules restrict any use of the information to criminally investigate or prosecute any alcohol or drug abuse patient.The records that you are about to access may contain highly sensitive health information, the redisclosure of which is protected by Article 27-F of the [facility] Public Health law. If you continue you may have access to information: Regarding HIV / AIDS; Provided by facilities licensed or operated by the [facility] Office of Mental Health; or Provided by the [facility] Office for People With Developmental Disabilities. If such information is present, then the following [facility] mandated warning applies: This information has been disclosed to you from confidential records which are protected by state law. State law prohibits you from making any further disclosure of this information without the specific written consent of the person to whom it pertains, or as otherwise permitted by law. Any unauthorized further disclosure in violation of state law may result in a fine or chcf sentence or both. A general authorization for the release of medical or other information is NOT sufficient authorization for further disc losure. Allergies and Adverse Reactions Type Description Substance Reaction Status Data Source(s ) No Known Food Allergies No Known Food Allergies [facility] ENVIRONMENTAL BANDAIDS AND TAPE BANDAIDS AND TAPE [facility] Drug allergy ALL ORAL NARCOTICS ALL ORAL NARCOTICS ABD PAIN; ABD PAIN; VOMITING; VOMITING [facility] ENVIRONMENTAL seasonal seasonal [facility] BRANDNAME BIAXIN BIAXIN PEELING MUCOUS MEMBRANES [facility] Family History Family Member Name Family Member Gender Family Member Status Date o f Status Description Data Source(s) Unknown Unknown Problem [facility] ([facility]) Encounters Encounter Providers Location Date Indications Data Source(s ) Outpatient Attender: DELMY RAMIREZ MDReferrer: BRUCE TAYLOR MD 06/23/2020 12:48:43 PM EST [facility] Outpatient Attender: DELMY RAMIREZ MDReferrer: BRUCE TAYLOR MD 06/23/2020 12:48:41 PM EST [facility] Outpatient Attender: ALEX MCCLELLAN DPM PCConsultant: BRUCE CONTRERAS MD 06/08/2020 09:24:00 AM EST - 06/08/2020 09:24:00 AM EST [facility] Outpatient Attender: BRUCE CONTRERAS MD [facility] 08:30:00 AM EST [facility] ([facility] Unknown [id number], [facility] [id number] 04/28/2020 12:00:00 AM EST [email or web address] ([facility]) Outpatient Attender: DELMY RAMIREZ MDReferrer: BRUCE TAYLOR MD 04/02/2020 11:10:15 AM EDT [facility] Outpatient Attender: DELMY RAMIREZ MDReferrer: BRUCE TAYLOR MD 03/31/2020 02:56:16 PM EDT [facility] Outpatient Attender: Steve PHILIPPE [facility] 10:40:00 AM EDT [facility] Outpatient Attender: Steve PHILIPPE [facility] 11:30:00 AM EDT [facility] ([facility] Outpatient Attender: DELMY RAMIREZ MDReferrer: BRUCE TAYLOR MD 03/12/2020 05:19:27 PM EDT [facility] Outpatient Attender: BRUCE CONTRERAS MD [facility] 11:00:00 AM EDT [facility] Outpatient Attender: Ana Garcia PAReferrer: BRUCE CONTRERAS MD 02/06/2020 11:21:11 AM EDT [facility] Recurring Patient Attender: DELMY RAMIREZ MDReferrer: BRUCE LUTHER MD 02/04/2020 11:29:15 AM EDT [facility] Outpatient Attender: SHIV MOYER NP [facility] 01/14 02:45:00 PM EDT [facility] Outpatient Attender: BRUCE CONTRERAS MD [facility] 03:40:00 PM EDT [facility] Outpatient Attender: DELMY RAMIREZ MDReferrer: BRUCE TAYLOR MD 11/19/2019 12:03:29 PM EDT [facility] Recurring Patient Attender: DELMY RAMIREZ MDReferrer: BRUCE LUTHER MD 11/12/2019 02:02:23 PM EDT [facility] Outpatient Attender: BRUCE CONTRERAS MD [facility] 11:15:00 AM EDT [facility] ([facility] Outpatient Attender: DELMY RAMIREZ MDReferrer: BRUCE TAYLOR MD 09/03/2019 04:39:10 PM EDT [facility] Outpatient Attender: BRUCE Valverde Office 11:00:00 AM EDT [facility] ([facility] Outpatient Attender: DELMY RAMIREZ MDReferrer: BURCE TAYLOR MD 08/11/2019 12:46:34 PM EST [facility] Outpatient Attender: DELMY RAMIREZ MDReferrer: BRUCE TAYLOR MD 08/07/2019 08:25:22 AM EST [facility] Recurring Patient Attender: DELMY RAMIREZ MDReferrer: BRUCE LUTHER MD 08/06/2019 10:27:26 AM EST [facility] Outpatient Attender: DELMY RAMIREZ MDReferrer: BRUCE TAYLOR MD 07/14/2019 08:40:38 AM EST [facility] Recurring Patient Attender: DELMY RAMIREZ MDReferrer: BRUCE LUTHER MD 07/09/2019 09:07:11 AM EST [facility] Outpatient Referrer: Rudolph Guallpa DPM 06/10/2019 01:59: 00 PM EST [facility] Outpatient Referrer: Rudolph Guallpa DPM 06/06/2019 01:26: 00 PM EST [facility] Outpatient Referrer: Rudolph Guallpa DPM 06/06/2019 01:18: 00 PM EST [facility] Outpatient Referrer: Rudolph Guallpa DPM 06/06/2019 12:08: 00 PM EST [facility] Outpatient Referrer: MARIANA GROVES MD 06/06/2019 12:04:00 P M EST [facility] Outpatient Attender: DELMY RAMIREZ MDReferrer: BRUCE TAYLOR MD 05/01/2019 05:26:48 PM EST [facility] Immunizations Vaccine Date Status Description Data Source(s) Tdap 03/24/2020 12:06:00 PM EDT completed M [facility] ([facility] New in 2012. IIV4 03/02/2020 11:23:00 AM EDT completed [facility] ([facility] Medications Medication Brand Name Start Date Product Form Dose Route Admi nistrative Instructions Pharmacy Instructions Status Indications Reaction Description Data Source(s) Naproxen sodium 550 MG Oral Tablet Naproxen Sodium 2020 12:00 :00 AM EST ORAL active [facility] Levofloxacin 500 MG Oral Tablet Levofloxacin 03/26/2020 12:00:00 AM E DT ORAL completed [facility] ([facility] tapentadol 50 MG Oral Tablet [Nucynta] Nucynta 03/26/2020 12:00:00 AM EDT ORAL completed [facility] ([facility] Injection (SC)/(Im) 03/24/2020 12:00:00 AM EDT completed [facility] ([facility] Medication administered onsite Cephalexin 500 MG Oral Capsule [Keflex] Keflex 03/24/2020 12:00:0 0 AM EDT ORAL completed [facility] ([facility] silver sulfadiazine 10 MG/ML Topical Cream [Silvadene] Leung dene 03/24/2020 12:00:00 AM EDT active M [facility] ([facility] Geritol Complete 01/15/2020 12:00:00 AM EDT ORAL a ctive [facility] ([facility] Levothyroxine Sodium 0.125 MG Oral Tablet Levothyroxine Sodi um 07/28/2019 12:00:00 AM EST active M [facility] ([facility] Insurance Providers Payer name Policy type / Coverage type Policy ID Covered libertarian ID Covered libertarian's relationship to candelaria Policy Candelaria Plan Information [facility] [id number] [facility] [id number] [facility] [id number] [id number] [facility] EMPIRE PLAN [id number] 01 [id number] EMPIRE ([facility]) O [id number] S [id number] [facility] Plan F [id number] SPOUSE [id number] [facility] O [id number] S [id number] [facility] Plan F [id number] SPOUSE [id number] UMR [facility] [id number] SP [id number] R [facility] [id number] SP [id number] [facility] [id number] WI2 [id number] BCBS EMPIRE [place] DIV [id number] HU2 [id number] ANSI-Commercial [id number] [facility] Plan Health Maintenance Organization (HMO) [id number] Family Dependent [id number] [facility] Plan Health Maintenance Organization (HMO) [id number] Family Dependent [id number] MANAGED PHYSICAL NETWORK -RCR [id number] 01 [id number] BLUE CROSS BLUE SHIELD -RECURRING [id number] 01 [id number] [facility] [id number] 01 [id number] EMPIRE BLUE CROSS BLUE SHIELD -O/P [id number] 19 [id number] EMPIRE BLUE CROSS BLUE SHIELD -O/P [id number] 19 [id number] O UNAVAILABLE UNAVAILA BLE State Ins [facility] () Workers Compensation [id number] Self [id number] [facility] () Workers Compensation [id number] Self [id number] [facility] Medigap Part B [id number] Self [id number] State Insurance Fund Workers Compensation [id number] Self [id number] [facility] () Workers Compensation [id number] Self [id number] Special Funds-Dew () Workers Compensation [id number] Self [id number] [employer] Workers Compensation [id number] Family Depen dent [id number] [facility] Medigap Part B [id number] Self [id number] [facility] Health Maintenance Organization (HMO) [id number] Family Dependent [id number] EMPIRE ([facility] O [id number] P [id number] [facility] Health Maintenance Organization (HMO) Family Dependent [facility] Health Maintenance Organization (HMO) Family Dependent STATE INSURANCE FUND [id number] SP [id number] [employer] O [id number] S [id number] State Insurance Fund Workers Compensation Self State Ins Fund () Workers Compensation Self Special Funds-Dew (WC) Workers Compensation Self [facility] Health Maintenance Organization (HMO) Family Dependent [facility] Commercial Family Depende nt [facility] [id number] SP [id number] BCBS [facility] DIV [id number] SP [id number] OTHER WORKERS COMPENSATION [id number] SP [id number] WORKER'S COMP [id number] Emp [id number] UNITED [employer]ALTH[employer]ARE [id number] SP [id number] Surgeries/Procedures Procedure Description Date Indications Data Source(s) Injection (SC)/(Im) 03/24/2020 12:00:00 AM EDT [facility] Electrocardiogram Complete 01/15/2020 12:00:00 AM EDT [facility] Electrocardiogram Complete 01/15/2020 12:00:00 AM EDT [facility] ([facility] Results ID Date Data Source [id number] 06/23/2020 12:48:43 PM EST [facility] Sabrina AngelDOB: 1960Provider: Dat Ramirez: 06/16/2020 Reason For VisitElilinus Angel is here today for left knee. Sabrina Angel is an established patient here for follow up. Surgery DOS: 01/27/20. Surgery Description: Diagnostic and operative arthroscopy. Subtotal lateral meniscectomy of bucket handle tear of the lateral meniscus involving anterior horn body and some of the posterior horn and chondroplasty of the medial femoral condyle. Patient is retired. AssessmentChief Complaint: Sab[facility] complaining of left knee pain. History: This is a visit under her private insurance. She is accompanied by her . She is dressed head to toe in a [place] outfit, green and red with white stockings with a black/blue trim and with a furry top. She is complaining of pain and soreness with activities in her left knee. Her physical therapist was told that she noticed some valgus malalignment of the left knee compared to her very straight post arthroscopy of the knee. She had an ankle wound on the left side which caused by some rubbing with physical therapy. She has been back to therapy as recently as 05/31/20. Her insurance only approved four visits, however. She says her left knee continues to be okay after arthroscopic surgery on 01/27/20, but there is still some soreness intermittently. She stepped off of a curb onto her right foot and twisted her knee and it has been snapping and making retropatellar crepitation off and on. The physical therapist seemed to help her with this, but resolution of the retropatellar crepitation was only temporary. She presents with a one-page, well-spaced, typed report of ongoing symptoms and timetable of her left knee which is attached to this note. She tells me that the therapist had recommendations and that there is vulgas alignment of her knee. I think she meant valgus. In any event, the left knee symptoms are more trouble than the right knee. She has trouble going up and down stairs and walking distances. It keeps her awake at night. She would like to go to therapy more. She remains retired at this time.Physical Examination: The patient is awake alert and oriented x 3. The patient has appropriate mood and affect. The upper extremities have normal strength, sensation, reflexes, muscle tone and coordination. There are no skin lesions in either upper extremity. There are normal pulses in both wrists. These characteristics are important in the event that the patient may need crutches for ambulation in the future.Examination of the left knee shows slight valgus alignment. There is some prominence medially over the medial collateral ligament area attachment, mostly femoral. There is no instability of the knee joint; full active and passive extension and flexion to about 120 degrees is present. Her gait shows slight antalgia on the left side. 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 I went over all of this with her. She will see us back, depending on ongoing symptoms. We will attach her type-written summary of ongoing symptoms of her left knee, page 2, to this office note. Signatures Electronically signed by : Lacey Wilcox, ; Jun 16 2020 2:49PM EST Electronically signed by : Delmy Ramirez M.D.; Jun 23 2020 12:48PM EST Name Value Range Interpretation Code Description Data Garima rce(s) Supporting Document(s) ID Date Data Source [id number] 06/23/2020 12:48:41 PM EST [facility]: Sabrina AngelDOB: 1960Provider: Roney RamirezS: 06/16/2020 Reason For VisitSabrina Angel is here today for right knee. Sabrina Angel is an established patient here for follow up. W.C. DOI: 10/05/11. Surgery DOS: 03/27/14. Surgery Description: Right knee [place]. Patient is retired. AssessmentREASON FOR VISIT:Sabrina Angel is in today with her . She is here in regard to her right knee. This is a Worker's Compensation visit. The date of injury was 10/05/11. She had primary knee replacement surgery in December of 2013. She then required a manipulation postoperatively, which was done in March of 2014. Her knee motion has been great since that time. She has chronic low-level inflammatory irritation in the knee. She has soreness over the medial and lateral compartments. Apparently, she cannot run, hop, skip or jump. She takes qnlp-hug-xduudhj medications, which don't seem to help. She uses Voltaren Gel. She typed a summary of her present level of function, sort of a eure-vz-rqrn perspective, from her standpoint, of her continuing knee problems. The problems include, but are not limited to, the timetable of the knee replacement in December of 2013, the manipulation in March of 2014, and her present symptoms. She states she is unable to do a sit-down job because of discomfort and functional limitation of the knee, from her subjective perspective.PHYSICAL EXAMINATION:The patient is awake alert and oriented x3. The patient has appropriate mood and affect. The upper extremities have normal strength, sensation, reflexes, muscle tone and coordination. There are no skin lesions in either upper extremity. There are normal pulses in both wrists. These characteristics are important in the event that the patient may need crutches for ambulation in the future. She is dressed in a Najma outfit, green and red from head-to-toe, with green stockings with Najma trees on them, and red polka dots.Examination of the right knee: She has full extension and flexes to 130 degrees. This is passive and active. There is no instability. Her gait seems normal. The patella is midline. She is wearing boots, with a fur lining at the top of the boots. I did not take the boots. She has had hammertoes on both sides, which affect her gait a little bit, possibly increasing her knee and low back discomfort.X-RAYS:Previous radiographs reveal a cemented total knee arthroplasty on the right side, with no sign of loosening or wear. DIAGNOSIS:Status post right total knee arthroplasty on 12/29/13, related to a Worker's Compensation injury of the knee on 10/05/11, requiring manipulation approximately three months post-op, on 03/27/14, presently functioning reasonably well and as expected after a stable knee replacement. FINAL DIAGNOSIS:Status post right knee replacement surgery related to her job, presently disabled and retired from work, with ongoing 50% loss of use of the right knee, which is permanent in nature.We will attach a copy of her typewritten summary of ongoing right knee symptoms, which she presented to me today, to her office note as an addendum, page 1.TREATMENT: Work / School NoteThe percentage of temporary impairment is 50%. Limit walking to 1/2 mile in an 8 hour day. No squatting, kneeling, or twisting. No lifting greater than 20 lbs. May need parking accomodations. Sabrina aSnchezLuca is ret ireglen. Patient has reached Maximum Medical Improvement (MMI) at this time. Patient may still require treatment for this injury in the future if there is a change in condition. Shows a 50% loss of use of the right knee which is prominent based on [place] Workmen's Compensation guidelines Signatures Electronically signed by : Marisa Zavala, ; Jun 16 2020 12:42PM EST Electronically signed by : Delmy Ramirez M.D.; Jun 23 2020 12:48PM EST Name Value Range Interpretation Code Description Data Garima rce(s) Supporting Document(s) ID Date Data Source [id number] 05/28/2020 12:00:00 AM EST [facility] Bruce Contreras MD Patient Name:FATEMEH ANGEL [facility] Date [place] : 1960[place] [address] Date of Exam: 05/28/2020PH#: Fax: [phone] EXAM: TOE(S) MIN 2 VIEWS X-RAYCLINICAL INFORMATION: Left 2nd toe arthritis.Four views. These images were obtained using digital radiography.No fracture or dislocation is seen. There is moderate narrowing at the 1stmetatars al phalangeal joint. There is moderate narrowing of the 2nd and3rd proximal interphalangeal joints. Moderate spurring is noted at thebase of the 2nd proximal phalanx.IMPRESSION:No acute fracture or dislocation. Moderate arthritic changes as above.SUMAYA Toney/Amando you for referring SABRINA TAYLORLILIANA to our office. Electronically Signed - SEAN TONY MD 05/28/20 16:38 Name Value Range Interpretation Code Description Data Garima rce(s) Supporting Document(s) ID Date Data Source [id number] 05/27/2020 12:00:00 AM EST [facility] Bruce Contreras MD Patient Name:FATEMEH ANGEL [facility] [address] Date of : 1960[place] [address] Date of Exam: 05/27/2020#: Fax: [phone] EXAM: HIP LEFT UNILATERAL (COMPLETE) X-RAYCLINICAL INFORMATION: Pain.Two views.No acute fracture or dislocation is seen. There is mild joint spacenarrowing, subchondral sclerosis and spurring. No bone lesion is seen.IMPRESSION:Mild arthritic changes.Sean Tony, SUMAYA/Amando you for referring SABRINA ANGEL to our office. Electronically Signed - SEAN TONY MD 05/27/20 16:56 Name Value Range Interpretation Code Description Data Garima rce(s) Supporting Document(s) ID Date Data Source [id number] 05/13/2020 12:00:00 PM EST [facility] Name Value Range Interpretation Code Description Data Garima rce(s) Supporting Document(s) SARS coronavirus 2 RNA [facility] This lab was ordered by [facility] and reported by [facility]. ID Date Data Source [id number] 04/02/2020 11:10:15 AM EDT [facility] Sabrina AngelDOB: 1960Provider: Dat Ramirez: 03/31/2020 Reason For VisitElilinus Angel is an established patient here for follow up. Miriam DOI: 10/05/11. Surgery DOS: 03/27/14. Surgery Description: Right total knee GE[place]NA. Patient is retired. AssessmentChief Complaint: Sabrina is in today for a followup check for her right knee pain.History: This is a Workers Comp injury from 10/05/11. There has been no change in her right knee. It functions adequately. It is tight in knee flexion, occasionally aching. She uses Voltaren gel. She ices it intermittently, but it is functional and her ambulation is reasonably comfortable. Physical Examination: The patient is awake alert and oriented x 3. The patient has appropriate mood and affect. The upper extremities have normal strength, sensation, reflexes, muscle tone and coordination. There are no skin lesions in either upper extremity. There are normal pulses in both wrists. These characteristics are important in the event that the patient may need crutches for ambulation in the future.Examination of the right knee: There is a well- healed surgical incision, full extension, and flexion to 125 degrees. There is no instability in varus or valgus in full extension, mid-flexion, or 90 degrees of flexion. Diagnosis: Adequate progress now six years after right knee replacement surgery, requiring a manipulation under anesthesia postoperatively. Treatment: She will continue with a home-based exercise program for her right knee. Work / School NoteThe percentage of temporary impairment is 50%. Limit walking to 1/2 mile in an 8 hour day. No squatting, kneeling, or twisting. No lifting greater than 20 lbs. May need parking accomodations. Sabrina Angel is retired. Signatures Electronically signed by : Lacey Wilcox, ; Apr 01 2020 8:21AM EST Electronically signed by : Delmy Ramirez M.D.; Apr 02 2020 11:10AM EST Name Value Range Interpretation Code Description Data Garima rce(s) Supporting Document(s) ID Date Data Source [id number] 03/31/2020 02:56:16 PM EDT [facility] Sabrina AngelDOB: 1960Provider: Dat Ramirez: 03/31/2020 Reason For VisitSabrina Angel is here today for Left knee. Sabrina Angel is an established patient here for follow up. Surgery DOS: Left knee scope. Surgery Description: 01/27/2020. Patient is retired. AssessmentREASON FOR VISIT:This 59-year-old woman is two months status post arthroscopic surgery of her left knee for meniscus pathology. I reviewed the images. She had a medial meniscus tear, a smaller lateral meniscus tear and minimal chondrosis in the knee joint. Physical therapy was stopped and is delayed because of a rope burn around her ankle, for which she is going to [facility] treatment. She is on antibiotics and doing dressing changes. She has lateral ankle pain that is severe enough that she is unable to participate in physical therapy for her knee.She gave me a report, including her chart, about the timing of ongoing right and left knee problems. Her right knee is a Worker's Compensation case. She has a knee replacement on that side, which was performed years ago. Her left knee is not a Worker's Compensation problem and is covered by her primary care insurance.PHYSICAL EXAMINATION:Examination of the left knee reveals well-healed surgical portals and, maybe, a 1+ effusion. She has full extension and flexes to 125 degrees. Medial and lateral Thor's signs are now negative but there is some effusion present and she has irritability with range of motion.DIAGNOSIS:Adequate progress after arthroscopic subtotal meniscectomy of the left kneeTREATMENT:Once her ankle wound heals, I think going back to formal physical therapy would be helpful. I gave her an updated prescription dated 04/11/20, as the anticipated re-start date. Signatures Electronically signed by : Marisa Zavala, ; Mar 31 2020 1:21PM EST Electronically signed by : Delmy Ramirez M.D.; Mar 31 2020 2:56PM EST Name Value Range Interpretation Code Description Data Garima rce(s) Supporting Document(s) ID Date Data Source [id number] 03/24/2020 12:04:00 PM EDT [facility] ([facility] Name Value Range Interpretation Code Description Data Garima rce(s) Supporting Document(s) Bacteria identified in Unspecified specimen by Aerobe culture Laboratory test result [facility] ([facility]) SRC:LEFT LEG WOUND Bacteria identified in Unspecified specimen by Culture Laborator y test result [facility] ([facility] ) SRC:LEFT LEG WOUND ID Date Data Source [id number] 03/12/2020 05:19:27 PM EDT [facility] Sabrina AngelDOB: 1960Provider: Delmy RamirezCEM: 03/03/2020 AssessmentREASON FOR VISIT:Sabrina Angel is in today, with her , for a follow-up check. She is five weeks after arthroscopic surgery of her left knee. She had fairly advanced medial compartment primary osteoarthritis and a large area of chondrosis of the medial femoral condyle that was debrided. Her lateral compartment was quite normal, with a small meniscus tear but no significant chondrosis, but with some chondrosis of the patellofemoral joint.Much of her symptoms are gone but she continues to have aching and soreness over the medial compartment of the knee, which, in my opinion, is related to the area of chondrosis of the medial femoral condyle. She reports that she filed for Social Security Disability, which was refuted. She says this was, in some part, due to the general office assistant's opinion that my notes were inconsistent or there wasn't enough explanation of her disability.Today she tells me that her right knee, the replacement knee, which is a little more than six years old, still hurts all of the time; it just hurts less than it did prior to the surgery. By the end of the day it's achy and sore. She has difficulty jumping/walking over a gate that keeps her pet out of her bedroom. She says that her distance walking is still restricted between 1/8 mile and 1/4 mile, depending on the day, weather, how much swelling she has and what she did the day before. Her ambulation ability is limited by swelling of the knee and by pain. In addition, her ambulation abilit y is limited by osteoarthritis of both ankles. She is wearing an ankle corset on the left side and special shoes on both feet to help accommodate the midfoot and ankle arthritis. PHYSICAL EXAMINATION:Examination of the left knee shows a 1+ effusion. The portals are well-healed. The lateral portal has some scarring. Range of motion of her left knee shows motion of 5 to 100 degrees of flexion. Medial and lateral Thor's signs are negative but there is still residual medial joint line tenderness.DIAGNOSIS:Osteoarthritis of both anklesStatus post right knee replacement six years agoStatus post arthroscopic chondroplasty and meniscectomy of the left kneeTREATMENT:I renewed her physical therapy, including aquatic physical therapy. She will see us in approximately two to three months. She remains disabled from work. She is retired. Work / School NoteThe percentage of temporary impairment is 67%. Sedentary work - limit walking to 1/4 mile in an 8 hour day. No squatting, kneeling, or twisting. No lifting greater than 10 lbs. Will need parking accomodations. Sabrina TaylorightonSegovia is retired. Signatures Electronically signed by : Marisa Zavala, ; Mar 05 2020 10:47AM EST Electronically signed by : Delmy Ramirez M.D.; Mar 12 2020 5:19PM EST Name Value Range Interpretation Code Description Data Garima rce(s) Supporting Document(s) ID Date Data Source [id number] 02/24/2020 01:18:00 PM EDT [facility] ([facility] Name Value Range Interpretation Code Description Data Garima rce(s) Supporting Document(s) Glu 98 mg/dL 70-110 [facility] ([facility] CHRONIC KIDNEY DISEASE STAGING PER NKF: MALE GFR INTERPRETATION: 20-49 YRS: [...] Normal 80 and above >32 mL/min Normal BUN 13 mg/dL 8-23 [facility] ([facility] CHRONIC KIDNEY DISEASE STAGING PER NKF: MALE GFR INTERPRETATION: 20-49 YRS: [...] Normal 80 and above >32 mL/min Normal Creat 0.7 mg/dL 0.5-1.0 [facility] ([facility] CHRONIC KIDNEY DISEASE STAGING PER NKF: MALE GFR INTERPRETATION: 20-49 YRS: [...] Normal 80 and above >32 mL/min Normal BUN/Creatinine Ratio 17.5 CALC [facility] ([facility] CHRONIC KIDNEY DISEASE STAGING PER NKF: MALE GFR INTERPRETATION: 20-49 YRS: [...] Normal 80 and above >32 mL/min Normal Na 140 mmol/L 136-145 [facility] ([facility] CHRONIC KIDNEY DISEASE STAGING PER NKF: MALE GFR INTERPRETATION: 20-49 YRS: [...] Normal 80 and above >32 mL/min Normal CL 106.6 mmol/L 98.0-107.0 [facility] ([facility] CHRONIC KIDNEY DISEASE STAGING PER NKF: MALE GFR INTERPRETATION: 20-49 YRS: [...] Normal 80 and above >32 mL/min Normal Co2 23.7 mmol/L 22.0-29.0 [facility] ([facility] CHRONIC KIDNEY DISEASE STAGING PER NKF: MALE GFR INTERPRETATION: 20-49 YRS: [...] Normal 80 and above >32 mL/min Normal K 4.5 mmol/L 3.5-5.1 [facility] ([facility] CHRONIC KIDNEY DISEASE STAGING PER NKF: MALE GFR INTERPRETATION: 20-49 YRS: [...] Normal 80 and above >32 mL/min Normal Alb 4.3 g/dL 3.4-4.8 [facility] ([facility] CHRONIC KIDNEY DISEASE STAGING PER NKF: MALE GFR INTERPRETATION: 20-49 YRS: [...] Normal 80 and above >32 mL/min Normal TP 6.2 g/dL 6.6-8.7 Below low normal [facility] ( [facility] CHRONIC KIDNEY DISEASE STAGING PER NKF: MALE GFR INTERPRETATION: 20-49 YRS: [...] Normal 80 and above >32 mL/min Normal CA 9.0 mg/dL 8.6-10.2 [facility] ([facility] CHRONIC KIDNEY DISEASE STAGING PER NKF: MALE GFR INTERPRETATION: 20-49 YRS: [...] Normal 80 and above >32 mL/min Normal Alp 80.4 U/L 35-129 [facility] CHRONIC KIDNEY DISEASE STAGING PER NKF: MALE GFR INTERPRETATION: 20-49 YRS: [...] Normal 80 and above >32 mL/min Normal Globulin 1.9 CALC [facility] CHRONIC KIDNEY DISEASE STAGING PER NKF: MALE GFR INTERPRETATION: 20-49 YRS: [...] Normal 80 and above >32 mL/min Normal A/G Ratio 2.2 CALC [facility] ([facility] CHRONIC KIDNEY DISEASE STAGING PER NKF: MALE GFR INTERPRETATION: 20-49 YRS: [...] Normal 80 and above >32 mL/min Normal Ast (Sgot) 19 U/L 0-40 [facility] CHRONIC KIDNEY DISEASE STAGING PER NKF: MALE GFR INTERPRETATION: 20-49 YRS: [...] Normal 80 and above >32 mL/min Normal Alt (SGPT) 20 U/L 0-41 [facility] CHRONIC KIDNEY DISEASE STAGING PER NKF: MALE GFR INTERPRETATION: 20-49 YRS: [...] Normal 80 and above >32 mL/min Normal Tbili 0.59 mg/dL 0.0-1.2 [facility] ([facility] CHRONIC KIDNEY DISEASE STAGING PER NKF: MALE GFR INTERPRETATION: 20-49 YRS: [...] Normal 80 and above >32 mL/min Normal eGFR 109 # [facility] ( [facility] CHRONIC KIDNEY DISEASE STAGING PER NKF: MALE GFR INTERPRETATION: 20-49 YRS: [...] Normal 80 and above >32 mL/min Normal Osmolality-Calculated 279.6 CALC [facility] ([facility] CHRONIC KIDNEY DISEASE STAGING PER NKF: MALE GFR INTERPRETATION: 20-49 YRS: [...] Normal 80 and above >32 mL/min Normal Anion Gap 14 mmol/L [facility] CHRONIC KIDNEY DISEASE STAGING PER NKF: MALE GFR INTERPRETATION: 20-49 YRS: [...] Normal 80 and above >32 mL/min Normal eGFR Non-Afr. Japanese 94 # [facility] ([facility] CHRONIC KIDNEY DISEASE STAGING PER NKF: MALE GFR INTERPRETATION: 20-49 YRS: [...] Normal 80 and above >32 mL/min Normal ID Date Data Source [id number] 02/24/2020 01:18:00 PM EDT [facility] ([facility] Name Value Range Interpretation Code Description Data Garima rce(s) Supporting Document(s) Thyrotropin [Units/volume] in Serum or Plasma 4.500 ulU/mL 0.60-4.8 [facility] ([facility] ID Date Data Source [id number] 02/04/2020 12:00:00 AM EDT [facility] Imaging Delmy Ramirez MD Patient Name:GEMA [id number] Date of : 1960uite 1b Date of Exam: 02/04/2020JOSE Cardona [id number]#: Fax: [phone] EXAM: US LEFT EXTREMITY VEINS, UNILATCLINICAL INFORMATION: Pain and swelling.VENOUS ULTRASOUND OF THE LEFT LOWER EXTREMITY:Multiple ultrasonographic images of the deep venous structures of the leftthigh were obtained from the level of the common femoral vein to thepopliteal vein in the longitudinal and transverse scan planes along withDoppler interrogation and color flow Doppler imaging.There is no abnormal echogenic material seen within any of the visualizeddeep venous structures that would suggest acute thrombosis. Coaptation isunremarkable throughout. Doppler interrogation shows an expected responseto respiratory variability and augmentation. The color flow Doppler imagesshow what appears to be a normal vascular pattern throughout.IMPRESSION:There is no ultrasonographic evidence of deep venous th rombosis involvingany of the visualized deep venous structures of the left thigh as describedabove.If a calf vein DVT is of clinical concern, the magnetic resonancevenography can be obtained.Accredited by the [employer] in Vascular PeripheralUltrasound.PAT Marc/Amando you for referring SABRINA ANGEL to our office. Electronically Signed - WILBUR GAN DO 02/04/20 15:05 Name Value Range Interpretation Code Description Data Garima rce(s) Supporting Document(s) ID Date Data Source [id number] 02/06/2020 11:21:11 AM EDT [facility]Name: Sabrina AngelDOB: 1960Provider: Jeffery Garcia: 02/03/2020 History of Present IllnessThe patient's post-surgical course has been without complication. Rehabilitation is progressing normally. The patient denies increased pain, increased swelling, fever, chills or purulent drainage. AssessmentStatus post lateral meniscectomy and multiple chondroplasties medial femoral condyle grade 3Plan: Patient is overall doing well, she is quite sore. She presents today in the office in a wheelchair but states that she does walk around her house with a cane. Her knee does still feel unstable at times. I would like her to go ahead with outpatient physical therapy for quadricep strengthening and balance, I think she will do well with this. She does have soreness in her calf and admits to a charley horse type pain a few nights ago. She has a history of a DVT on the contralateral leg. And will go ahead with a Doppler ultrasound to evaluate and rule out DVT. She admits that she has been taking her aspirin 325 mg as advised. She will follow-up in [address] Ramirez. Plan Physical Therapy (SOS) - General Treatment Treatment Status: Complete Done:[id number] Ordered;For: Joint pain, knee, Left knee pain; Ordered By: Ana Garcia Performed: Order Comments: s/p lateral meniscectomy dos 01/27/2020 Due: [id number]; Last Updated By: Kassidy La; 02/03/2020 3:52:03 PMDuration: : Four WeeksPT Frequency : Twice a weekLaterality and Body Part : left knee Venous Doppler (SOS) Referral Treatment Treatment Status: Complete Done:[id number] Ordered;For: Calf pain, Swelling of calf; Ordered By: Ana Garcia Performed: Due: [id number]; Last Updated By: Kassidy La; 02/03/2020 3:51:14 PMRule out deep vein thrombosis : YesExtremity : Lower ExtremityLaterality: : Left Plan, Assessment and Recommendation(s) Schedule appointment: in 4-6 weeks. The nature of the diagnosis and various treatment alternatives were discussed today, including invasive, operative, and non-operative options. DisclaimersThis document was dictated and electronically signed using [employer] Speaking software. A reasonable attempt at proof reading has been made to minimize errors. Please call with any questions. Signatures Electronically signed by : Ana Garcia PA-C; Feb 03 2020 3:55PM EST (Author) Electronically signed by : Delmy Ramirez M.D.; Feb 06 2020 11:21AM EST Name Value Range Interpretation Code Description Data Garima rce(s) Supporting Document(s) ID Date Data Source [id number] 01/22/2020 02:14:00 AM EDT [facility] Name Value Range Interpretation Code Description Data Garima rce(s) Supporting Document(s) SARS coronavirus 2 PCR [facility] This lab was ordered by [facility] and reported by [employer]. ID Date Data Source [id number] 11/19/2019 12:03:29 PM EDT [facility] PCName: Sabrina Sanchez-WardDOB: 1960Provider: Dat Ramirez: 11/12/2019 AssessmentChief Complaint: Sabrina is in today for a followup check for her left knee.History: She is status post right total knee replacement by me in the past. It has functioned reasonably well. She has some chronic low back pain, but increasing pain and soreness in the left knee has been problematic. She has collapse of the midfoot and she sees a medical appointment scheduler for this in the [place] area and apparently they are considering doing some kind of tendon transfer to help control this. She wears a Swede-O support sleeve on both ankles. She is in today accompanied by her for evaluation. She used to work for the [employer]. She recalls that they were playing softball and a ball hit her on the lateral aspect of the knee in the distant past and she wants to know if this has anything to do with her ongoing symptoms of pain there recently and it is hard to have an opinion about that. She complains of increasing pain and soreness in the left knee despite successfully keeping that at bay in the past. The last time I saw her was in August also for knee pain. She was given diclofenac gel and told to elevate and ice. She had an MRI scan of the knee which showed a very large posterior horn and body tear of the lateral meniscus. It would appear that that is the source of her present discomfort. Physical Examination: The patient is awake alert and oriented x 3. The patient has appropriate mood and affect. The upper extremities have normal strength, sensation, reflexes, muscle tone and coordination. There are no skin lesions in either upper extremity. There are normal pulses in both wrists. These characteristics are important in the event that the patient may need crutches for ambulation in the future.Examination of the left knee: The patient ambulates with antalgia. The left knee has a 1+ effusion. There is pain with passive extension, lacking 5 with a spongy endpoint. There is a positive lateral Thor sign. There is a negative medial Thor sign. No varus or valgus instability is present. Travon, pivot shift and drawer signs are negative. There is significant tenderness present over the lateral joint line. No tenderness over the medial joint line is appreciated. Flexion beyond 100 is limited due to the effusion.Strength, sensation, reflexes and muscle tone in bot h lower extremities are intact. There are normal pulses in both feet. No skin lesions are present in either lower extremity.MRI: I reviewed her previous left knee MRI scan which was actually ordered by Dr. Guerrero which shows a complex horizontal cleavage lateral meniscal tear involving the anterior horn and body and at least part of the posterior horn. X-rays:Updated x-rays were ordered, taken and interpreted by me today for pain including a standing AP, a 30-degree flexed standing AP, and a Merchants view of the left knee. The standing films show the right knee as well. There is a well-positioned cemented total knee arthroplasty on the right side without loosening or wear. On the left side, both on the standing AP and 30-degree flexed knee, there is no joint space narrowing. The patella on Merchants view shows the patella midline. Diagnosis: MRI scan-proven traumatic, complex lateral meniscal tear involving the posterior horn, body, and anterior horn of the left knee with failure of conservative management. Treatment: Based on her poor functional status, I suggested arthroscopic surgery of her left knee. She wishes to go ahead with this. We discussed the operation, its risks and complications, expected outcomes and how the procedure is performed, where the incision is and the possibility of complications. No guarantee was made for a perfect result. After completing the informed consent discussion, we signed consent forms. We will make arrangements for a follow-up check of approximately 10 days postoperatively. Plan Start: traMADol HCl - 50 MG Oral Tablet; TAKE 1 TABLET EVERY 4 TO 6 HOURS ASNEEDED FOR PAIN Rx By: Delmy Ramirez; Dispense: 4 Days ; #:20 Tablet; Refill: 0;For: Status post arthroscopy of knee; NINFA = N; Verified Transmission to [employer]; Msg to Pharmacy: Reference #:[id number]; Last Updated By: Sridevi Saucedo; 11/12/2019 3:40:34 PM X-Ray I Knee - 3 views (XRays were ordered, obtained and interpreted today in theoffice. Indication: pain/dysfunction.); Status:Complete; Done: 12Nov2019 Perform:SOS29; Due:[id number]; Last Updated By:Ana Holland; 11/12/2019 2:44:15 PM;Ordered; For:Left knee pain; Ordered By:Delmy Ramirez;Weight Bearing Status : Weight bearingLaterality: : Left Signatures Electronically signed by : Lacey Wilcox, ; Nov 13 2019 9:30AM EST Electronically signed by : Delmy Ramirez M.D.; Nov 19 2019 12:03PM EST Name Value Range Interpretation Code Description Data Garima rce(s) Supporting Document(s) ID Date Data Source [id number] 09/23/2019 03:38:35 PM EDT [facility] PCName: Sabrina Sanchez-WardDOB: 1960Provider: Roney RamirezS: 09/03/2019 Assessment Total Knee Arthroplasty Primary osteoarthritis of one knee (715.16) (M17.10) In today with her . She is status post right knee replacement with some ongoing discogenic aching and soreness and hypersensitivity around the anterior aspect of the knee. With respect to the left knee there is pain in all 3 compartments most prominently she says under the patella. X-rays of the left knee have revealed tricompartmental osteoarthritis and a chronic large traumatic and ch ronic lateral meniscus tear. There is some areas of jott-sa-ejki in the medial and patellofemoral compartments of the left knee.She is on disability and she had a recurrent form for me to fill out this is from an insurance carrier but I will start exam today her subjective symptoms in the last formed.Form was completed and return to her side.Pain and disability still present. She is wearing an ankle brace and the left side which may be stressing the left knee slightly.Physical examination:The patient is awake alert and oriented x3. The patient has appropriate mood and affect. The upper extremities have normal strength, sensation, reflexes, muscle tone and coordination. There are no skin lesions in either upper extremity. There are normal pulses in both wrists. These characteristics are important in the event that the patient may need crutches for ambulation in the future.Examination of the right knee: There is well-healed surgical incision there is full extension there is 128 of flexion additional instability there is hypersensitivity around the anterior incision but no erythema no redness and minimal swelling.Examination of the left knee:Examination of the affected knee:The patient ambulates with antalgia. There is a varus thrust on the affected side with ambulation.He affected knee has 5 of varus malalignment. Range of motion is from 5-115 of flexion. There is subtle laxity of the lateral collateral ligament. No gross instability is noted. Crepitation is noted with range of motion most notably in the medial and patellofemoral compartments. There is a 1+ effusion. Tenderness is most marked medially but subtle tenderness is also present in the lateral and patellofemoral compartments.The lower extremity shows normal strength, sensation, reflex and coordination. There are normal pulses in the foot. There are no skin lesions.I reviewed both her plain radiographs and the MRI scan as noted above.Diagnosis: Status post right total knee replacement with some continued subjective pain and #2 end-stage primary tricompartmental osteoarthritis of left knee with a mid body anterior and posterior horn complex tear of the lateral meniscus of the leftTreatment she wants to go ahead with arthroscopic surgery of the left knee for the meniscus pathology. I told her that think she will come to knee replacement surgery eventually. Any elective surgery presently is not indicated. She has trouble with oral anti-inflammatories giving her GI upset and unfortunately they have not provided any significant relief. As a result of these 2 issues I recommended request for for Voltaren cream to be dispensed for her application to the left knee. Signatures Electronically signed by : Finn Erwin, ; Sep 03 2019 1:00PM EST (Author) Electronically signed by : Delmy Ramirez M.D.; Sep 03 2019 4:39PM EST Electronically signed by : Delmy Ramirez M.D.; Sep 23 2019 3:38PM EST (Author) Name Value Range Interpretation Code Description Data Garima rce(s) Supporting Document(s) ID Date Data Source [id number] 08/25/2019 10:05:00 AM EDT [facility] PATIENT MR#: [id number] NAME: Sabrina Bar ADATE OF : 1960REFERRING PHYSICIAN: Delmy RamirezEXVESNA DATE: 08/22/2019EXAM: MRI left KneeINDICATION: Primary osteoarthritis of one knee. Injury to left knee whenstepping down off a curb with right foot 07/03[place]2019[place] and heard a snap inleft knee.COMPARISON: Left knee radiographs 07/03/2019, 07/20/2016; MRI left knee 09/24/2017TECHNIQUE: MRI scan of the left knee was performed using various scan planesand pulse sequences.FINDINGS: On 07/03/2019 radiographs there is a chondroid matrix lesion compatible with anenchondroma within the proximal left tibial metadiaphysis, measuring up toapproximately 2.1 cm in craniocaudal dimension, unchanged from 07/20/2016radiographs. This is again seen to be a lobular lesion with internal chondroidmatrix, with predominantly intermediate to increased proton density signal andspeckled internal decreased proton density signal and peripheral intermediate T1and central speckled decreased T1 signal, measuring up to 1.5 x 1.6 x 2.4 cm(transverse by AP by craniocaudal), unchanged from 09/24/2017 MRI. Nosurrounding marrow edema, endosteal scalloping, cortical destruction, or softtissue component to indicate an aggressive bone lesion, and this is againsuggestive of a benign enchondroma.The ACL and PCL are intact.Medial compartment:Interval increase in moderate partial thickness cartilage loss within theweightbearing medial femoral condyle with an oblique thin linear high-gradepartial full-thickness cartilage fissure within the mid weightbearing medialfemoral condyle cartilage (coronal image 11). Mild thinning of the medialaspect of the medial tibial plateau cartilage. The medial meniscus is intact.Lateral compartment:Moderate partial thickness cartilage loss throughout the lateral tibial plateauand weightbearing lateral femoral condyle, similar to prior. There is againmoderate extrusion of the body of the lateral meniscus with mildly irregular andchronic appearing horizontal linear increased proton density signal within thebody of the lateral meniscus that extends through the superior articular surfaceof the central third of the meniscal triangle, similar to prior. This tear alsoagain extends into the anterior horn of the lateral meniscus, extending throughthe superior articular surface of the central third of the meniscal triangle inthis region.Small joint effusion, similar to prior. The medial collateral ligament isintact. The fibular collateral ligament, biceps femoris tendon, iliotibialband, and popliteus tendon are intact. The quadriceps and patellar tendons areintact. The medial and lateral patellofemoral retinacula are intact.Patellofemoral compartment:Trace new subchondral edema within the superior junction of the patellar apexand medial patellar facet cartilage. Mild to moderate thinning of the trochlearnotch and medial trochlear cartilage, similar to prior.Mild edema within the visualized proximal aspect of the lateral head of thegastrocnemius muscle, similar to prior. This is suggestive of muscle strain.IMPRESSION: Compared to 09/24/2017:1. Stable chondroid matrix lesion within the proximal tibial metadiaphysis,again suggesting a benign enchondroma.2. Interval increase in moderate thinning of the weightbearing medial femoralcondyle cartilage.3. Unchanged moderate lateral compartment cartilage degenerative changes.4. Unchanged chronic horizontal linear tear within the body and anterior hornof the lateral meniscus.5. Mild patellofemoral cartilage degenerative changes.Read by: Steven Nino by: Steven Nino Date: 08/25/2019 10:05:26 AMElectronically signed by: Steven Collins signed: 08/25/2019 10:05:42 AM Name Value Range Interpretation Code Description Data Garima rce(s) Supporting Document(s) ID Date Data Source [id number] 08/15/2019 09:25:00 AM EST [facility] ([facility] Name Value Range Interpretation Code Description Data Garima rce(s) Supporting Document(s) Thyrotropin [Units/volume] in Serum or Plasma 2.657 ulU/mL 0.60-4.8 [facility] ([facility] ID Date Data Source [id number] 08/15/2019 09:25:00 AM EST [facility] ([facility] Name Value Range Interpretation Code Description Data Garima rce(s) Supporting Document(s) Chol 153 mg/dL 0-200 [facility] CLASSIFICATION CHOLESTEROL FO R ADULTS CHILDREN/ADOLESCENTS* DESIRABLE: <200 MG/DL <170 MG/DL BORDER-LINE HIGH RISK: 200-239 MG/DL 170-199 MG/DL HIGH RISK: >240 MG/DL >200 MG/DL CLASS. FOR PRIMARY LDL CHOL PREVENTION: LDL CHOL-CHILD/ADOLESCENTS* DESIRABLE: <130 MG/DL <110 MG/DL BORDERLINE-HIGH RISK: 130-159 MG/DL 110-129 MG/DL HIGH RISK: >160 MG/DL >130 MG/DL *CHILDREN AND ADOLESCENTS REPRESENTS INDIVIDUALA AGED 2-19 YEARS EXCLUSIVE. CHRONIC KIDNEY DISEASE STAGING PER NKF: MALE GFR INTERPRETATION: 20-49 YRS: [...] Normal 80 and above >32 mL/min Normal Trig 60 mg/dL 40-200 [facility] ([facility] CLASSIFICATION CHOLESTEROL FO R ADULTS CHILDREN/ADOLESCENTS* DESIRABLE: <200 MG/DL <170 MG/DL BORDER-LINE HIGH RISK: 200-239 MG/DL 170-199 MG/DL HIGH RISK: >240 MG/DL >200 MG/DL CLASS. FOR PRIMARY LDL CHOL PREVENTION: LDL CHOL-CHILD/ADOLESCENTS* DESIRABLE: <130 MG/DL <110 MG/DL BORDERLINE-HIGH RISK: 130-159 MG/DL 110-129 MG/DL HIGH RISK: >160 MG/DL >130 MG/DL *CHILDREN AND ADOLESCENTS REPRESENTS INDIVIDUALA AGED 2-19 YEARS EXCLUSIVE. CHRONIC KIDNEY DISEASE STAGING PER NKF: MALE GFR INTERPRETATION: 20-49 YRS: [...] Normal 80 and above >32 mL/min Normal LDL_C 75 Calc 75-129 [facility] ([facility] CLASSIFICATION CHOLESTEROL FO R ADULTS CHILDREN/ADOLESCENTS* DESIRABLE: <200 MG/DL <170 MG/DL BORDER-LINE HIGH RISK: 200-239 MG/DL 170-199 MG/DL HIGH RISK: >240 MG/DL >200 MG/DL CLASS. FOR PRIMARY LDL CHOL PREVENTION: LDL CHOL-CHILD/ADOLESCENTS* DESIRABLE: <130 MG/DL <110 MG/DL BORDERLINE-HIGH RISK: 130-159 MG/DL 110-129 MG/DL HIGH RISK: >160 MG/DL >130 MG/DL *CHILDREN AND ADOLESCENTS REPRESENTS INDIVIDUALA AGED 2-19 YEARS EXCLUSIVE. CHRONIC KIDNEY DISEASE STAGING PER NKF: MALE GFR INTERPRETATION: 20-49 YRS: [...] Normal 80 and above >32 mL/min Normal Prostate specific Ag [Mass/volume] in Serum or Plasma 65 mg/dL 45-6 5 [facility] ([facility] CLASSIFICATION CHOLESTEROL FO R ADULTS CHILDREN/ADOLESCENTS* DESIRABLE: <200 MG/DL <170 MG/DL BORDER-LINE HIGH RISK: 200-239 MG/DL 170-199 MG/DL HIGH RISK: >240 MG/DL >200 MG/DL CLASS. FOR PRIMARY LDL CHOL PREVENTION: LDL CHOL-CHILD/ADOLESCENTS* DESIRABLE: <130 MG/DL <110 MG/DL BORDERLINE-HIGH RISK: 130-159 MG/DL 110-129 MG/DL HIGH RISK: >160 MG/DL >130 MG/DL *CHILDREN AND ADOLESCENTS REPRESENTS INDIVIDUALA AGED 2-19 YEARS EXCLUSIVE. CHRONIC KIDNEY DISEASE STAGING PER NKF: MALE GFR INTERPRETATION: 20-49 YRS: [...] Normal 80 and above >32 mL/min Normal Cho/HDL Ratio 2.3 CALC [facility] ([facility] CLASSIFICATION CHOLESTEROL FO R ADULTS CHILDREN/ADOLESCENTS* DESIRABLE: <200 MG/DL <170 MG/DL BORDER-LINE HIGH RISK: 200-239 MG/DL 170-199 MG/DL HIGH RISK: >240 MG/DL >200 MG/DL CLASS. FOR PRIMARY LDL CHOL PREVENTION: LDL CHOL-CHILD/ADOLESCENTS* DESIRABLE: <130 MG/DL <110 MG/DL BORDERLINE-HIGH RISK: 130-159 MG/DL 110-129 MG/DL HIGH RISK: >160 MG/DL >130 MG/DL *CHILDREN AND ADOLESCENTS REPRESENTS INDIVIDUALA AGED 2-19 YEARS EXCLUSIVE. CHRONIC KIDNEY DISEASE STAGING PER NKF: MALE GFR INTERPRETATION: 20-49 YRS: [...] Normal 80 and above >32 mL/min Normal ID Date Data Source [id number] 08/15/2019 09:25:00 AM EST [facility] ([facility] Name Value Range Interpretation Code Description Data Garima rce(s) Supporting Document(s) Glu 94 mg/dL 70-110 [facility] ([facility] CLASSIFICATION CHOLESTEROL FO R ADULTS CHILDREN/ADOLESCENTS* DESIRABLE: <200 MG/DL <170 MG/DL BORDER-LINE HIGH RISK: 200-239 MG/DL 170-199 MG/DL HIGH RISK: >240 MG/DL >200 MG/DL CLASS. FOR PRIMARY LDL CHOL PREVENTION: LDL CHOL-CHILD/ADOLESCENTS* DESIRABLE: <130 MG/DL <110 MG/DL BORDERLINE-HIGH RISK: 130-159 MG/DL 110-129 MG/DL HIGH RISK: >160 MG/DL >130 MG/DL *CHILDREN AND ADOLESCENTS REPRESENTS INDIVIDUALA AGED 2-19 YEARS EXCLUSIVE. CHRONIC KIDNEY DISEASE STAGING PER NKF: MALE GFR INTERPRETATION: 20-49 YRS: [...] Normal 80 and above >32 mL/min Normal BUN/Creatinine Ratio 19.0 Calc [facility] ([facility] CLASSIFICATION CHOLESTEROL FO R ADULTS CHILDREN/ADOLESCENTS* DESIRABLE: <200 MG/DL <170 MG/DL BORDER-LINE HIGH RISK: 200-239 MG/DL 170-199 MG/DL HIGH RISK: >240 MG/DL >200 MG/DL CLASS. FOR PRIMARY LDL CHOL PREVENTION: LDL CHOL-CHILD/ADOLESCENTS* DESIRABLE: <130 MG/DL <110 MG/DL BORDERLINE-HIGH RISK: 130-159 MG/DL 110-129 MG/DL HIGH RISK: >160 MG/DL >130 MG/DL *CHILDREN AND ADOLESCENTS REPRESENTS INDIVIDUALA AGED 2-19 YEARS EXCLUSIVE. CHRONIC KIDNEY DISEASE STAGING PER NKF: MALE GFR INTERPRETATION: 20-49 YRS: [...] Normal 80 and above >32 mL/min Normal Creat 0.8 mg/dL 0.5-1.0 [facility] ([facility] CLASSIFICATION CHOLESTEROL FO R ADULTS CHILDREN/ADOLESCENTS* DESIRABLE: <200 MG/DL <170 MG/DL BORDER-LINE HIGH RISK: 200-239 MG/DL 170-199 MG/DL HIGH RISK: >240 MG/DL >200 MG/DL CLASS. FOR PRIMARY LDL CHOL PREVENTION: LDL CHOL-CHILD/ADOLESCENTS* DESIRABLE: <130 MG/DL <110 MG/DL BORDERLINE-HIGH RISK: 130-159 MG/DL 110-129 MG/DL HIGH RISK: >160 MG/DL >130 MG/DL *CHILDREN AND ADOLESCENTS REPRESENTS INDIVIDUALA AGED 2-19 YEARS EXCLUSIVE. CHRONIC KIDNEY DISEASE STAGING PER NKF: MALE GFR INTERPRETATION: 20-49 YRS: [...] Normal 80 and above >32 mL/min Normal BUN 15 mg/dL 01-31 [facility] ([facility] CLASSIFICATION CHOLESTEROL FO R ADULTS CHILDREN/ADOLESCENTS* DESIRABLE: <200 MG/DL <170 MG/DL BORDER-LINE HIGH RISK: 200-239 MG/DL 170-199 MG/DL HIGH RISK: >240 MG/DL >200 MG/DL CLASS. FOR PRIMARY LDL CHOL PREVENTION: LDL CHOL-CHILD/ADOLESCENTS* DESIRABLE: <130 MG/DL <110 MG/DL BORDERLINE-HIGH RISK: 130-159 MG/DL 110-129 MG/DL HIGH RISK: >160 MG/DL >130 MG/DL *CHILDREN AND ADOLESCENTS REPRESENTS INDIVIDUALA AGED 2-19 YEARS EXCLUSIVE. CHRONIC KIDNEY DISEASE STAGING PER NKF: MALE GFR INTERPRETATION: 20-49 YRS: [...] Normal 80 and above >32 mL/min Normal K 4.6 mmol/L 3.5-5.1 [facility] ([facility] CLASSIFICATION CHOLESTEROL FO R ADULTS CHILDREN/ADOLESCENTS* DESIRABLE: <200 MG/DL <170 MG/DL BORDER-LINE HIGH RISK: 200-239 MG/DL 170-199 MG/DL HIGH RISK: >240 MG/DL >200 MG/DL CLASS. FOR PRIMARY LDL CHOL PREVENTION: LDL CHOL-CHILD/ADOLESCENTS* DESIRABLE: <130 MG/DL <110 MG/DL BORDERLINE-HIGH RISK: 130-159 MG/DL 110-129 MG/DL HIGH RISK: >160 MG/DL >130 MG/DL *CHILDREN AND ADOLESCENTS REPRESENTS INDIVIDUALA AGED 2-19 YEARS EXCLUSIVE. CHRONIC KIDNEY DISEASE STAGING PER NKF: MALE GFR INTERPRETATION: 20-49 YRS: [...] Normal 80 and above >32 mL/min Normal Na 142 mmol/L 136-145 [facility] ([facility] CLASSIFICATION CHOLESTEROL FO R ADULTS CHILDREN/ADOLESCENTS* DESIRABLE: <200 MG/DL <170 MG/DL BORDER-LINE HIGH RISK: 200-239 MG/DL 170-199 MG/DL HIGH RISK: >240 MG/DL >200 MG/DL CLASS. FOR PRIMARY LDL CHOL PREVENTION: LDL CHOL-CHILD/ADOLESCENTS* DESIRABLE: <130 MG/DL <110 MG/DL BORDERLINE-HIGH RISK: 130-159 MG/DL 110-129 MG/DL HIGH RISK: >160 MG/DL >130 MG/DL *CHILDREN AND ADOLESCENTS REPRESENTS INDIVIDUALA AGED 2-19 YEARS EXCLUSIVE. CHRONIC KIDNEY DISEASE STAGING PER NKF: MALE GFR INTERPRETATION: 20-49 YRS: [...] Normal 80 and above >32 mL/min Normal CL 106.3 mmol/L 98.0-107.0 [facility] ([facility] CLASSIFICATION CHOLESTEROL FO R ADULTS CHILDREN/ADOLESCENTS* DESIRABLE: <200 MG/DL <170 MG/DL BORDER-LINE HIGH RISK: 200-239 MG/DL 170-199 MG/DL HIGH RISK: >240 MG/DL >200 MG/DL CLASS. FOR PRIMARY LDL CHOL PREVENTION: LDL CHOL-CHILD/ADOLESCENTS* DESIRABLE: <130 MG/DL <110 MG/DL BORDERLINE-HIGH RISK: 130-159 MG/DL 110-129 MG/DL HIGH RISK: >160 MG/DL >130 MG/DL *CHILDREN AND ADOLESCENTS REPRESENTS INDIVIDUALA AGED 2-19 YEARS EXCLUSIVE. CHRONIC KIDNEY DISEASE STAGING PER NKF: MALE GFR INTERPRETATION: 20-49 YRS: [...] Normal 80 and above >32 mL/min Normal Co2 23.7 mmol/L 22.0-29.0 [facility] ([facility] CLASSIFICATION CHOLESTEROL FO R ADULTS CHILDREN/ADOLESCENTS* DESIRABLE: <200 MG/DL <170 MG/DL BORDER-LINE HIGH RISK: 200-239 MG/DL 170-199 MG/DL HIGH RISK: >240 MG/DL >200 MG/DL CLASS. FOR PRIMARY LDL CHOL PREVENTION: LDL CHOL-CHILD/ADOLESCENTS* DESIRABLE: <130 MG/DL <110 MG/DL BORDERLINE-HIGH RISK: 130-159 MG/DL 110-129 MG/DL HIGH RISK: >160 MG/DL >130 MG/DL *CHILDREN AND ADOLESCENTS REPRESENTS INDIVIDUALA AGED 2-19 YEARS EXCLUSIVE. CHRONIC KIDNEY DISEASE STAGING PER NKF: MALE GFR INTERPRETATION: 20-49 YRS: [...] Normal 80 and above >32 mL/min Normal TP 6.5 g/dL 6.6-8.7 Below low normal [facility] ( [facility] CLASSIFICATION CHOLESTEROL FO R ADULTS CHILDREN/ADOLESCENTS* DESIRABLE: <200 MG/DL <170 MG/DL BORDER-LINE HIGH RISK: 200-239 MG/DL 170-199 MG/DL HIGH RISK: >240 MG/DL >200 MG/DL CLASS. FOR PRIMARY LDL CHOL PREVENTION: LDL CHOL-CHILD/ADOLESCENTS* DESIRABLE: <130 MG/DL <110 MG/DL BORDERLINE-HIGH RISK: 130-159 MG/DL 110-129 MG/DL HIGH RISK: >160 MG/DL >130 MG/DL *CHILDREN AND ADOLESCENTS REPRESENTS INDIVIDUALA AGED 2-19 YEARS EXCLUSIVE. CHRONIC KIDNEY DISEASE STAGING PER NKF: MALE GFR INTERPRETATION: 20-49 YRS: [...] Normal 80 and above >32 mL/min Normal CA 9.1 mg/dL 8.6-10.2 [facility] ([facility] CLASSIFICATION CHOLESTEROL FO R ADULTS CHILDREN/ADOLESCENTS* DESIRABLE: <200 MG/DL <170 MG/DL BORDER-LINE HIGH RISK: 200-239 MG/DL 170-199 MG/DL HIGH RISK: >240 MG/DL >200 MG/DL CLASS. FOR PRIMARY LDL CHOL PREVENTION: LDL CHOL-CHILD/ADOLESCENTS* DESIRABLE: <130 MG/DL <110 MG/DL BORDERLINE-HIGH RISK: 130-159 MG/DL 110-129 MG/DL HIGH RISK: >160 MG/DL >130 MG/DL *CHILDREN AND ADOLESCENTS REPRESENTS INDIVIDUALA AGED 2-19 YEARS EXCLUSIVE. CHRONIC KIDNEY DISEASE STAGING PER NKF: MALE GFR INTERPRETATION: 20-49 YRS: [...] Normal 80 and above >32 mL/min Normal A/G Ratio 2.0 Calc [facility] ([facility] CLASSIFICATION CHOLESTEROL FO R ADULTS CHILDREN/ADOLESCENTS* DESIRABLE: <200 MG/DL <170 MG/DL BORDER-LINE HIGH RISK: 200-239 MG/DL 170-199 MG/DL HIGH RISK: >240 MG/DL >200 MG/DL CLASS. FOR PRIMARY LDL CHOL PREVENTION: LDL CHOL-CHILD/ADOLESCENTS* DESIRABLE: <130 MG/DL <110 MG/DL BORDERLINE-HIGH RISK: 130-159 MG/DL 110-129 MG/DL HIGH RISK: >160 MG/DL >130 MG/DL *CHILDREN AND ADOLESCENTS REPRESENTS INDIVIDUALA AGED 2-19 YEARS EXCLUSIVE. CHRONIC KIDNEY DISEASE STAGING PER NKF: MALE GFR INTERPRETATION: 20-49 YRS: [...] Normal 80 and above >32 mL/min Normal Alb 4.3 g/dL 3.4-4.8 [facility] CLASSIFICATION CHOLESTEROL FO R ADULTS CHILDREN/ADOLESCENTS* DESIRABLE: <200 MG/DL <170 MG/DL BORDER-LINE HIGH RISK: 200-239 MG/DL 170-199 MG/DL HIGH RISK: >240 MG/DL >200 MG/DL CLASS. FOR PRIMARY LDL CHOL PREVENTION: LDL CHOL-CHILD/ADOLESCENTS* DESIRABLE: <130 MG/DL <110 MG/DL BORDERLINE-HIGH RISK: 130-159 MG/DL 110-129 MG/DL HIGH RISK: >160 MG/DL >130 MG/DL *CHILDREN AND ADOLESCENTS REPRESENTS INDIVIDUALA AGED 2-19 YEARS EXCLUSIVE. CHRONIC KIDNEY DISEASE STAGING PER NKF: MALE GFR INTERPRETATION: 20-49 YRS: [...] Normal 80 and above >32 mL/min Normal Globulin 2.2 Calc [facility] ([facility] CLASSIFICATION CHOLESTEROL FO R ADULTS CHILDREN/ADOLESCENTS* DESIRABLE: <200 MG/DL <170 MG/DL BORDER-LINE HIGH RISK: 200-239 MG/DL 170-199 MG/DL HIGH RISK: >240 MG/DL >200 MG/DL CLASS. FOR PRIMARY LDL CHOL PREVENTION: LDL CHOL-CHILD/ADOLESCENTS* DESIRABLE: <130 MG/DL <110 MG/DL BORDERLINE-HIGH RISK: 130-159 MG/DL 110-129 MG/DL HIGH RISK: >160 MG/DL >130 MG/DL *CHILDREN AND ADOLESCENTS REPRESENTS INDIVIDUALA AGED 2-19 YEARS EXCLUSIVE. CHRONIC KIDNEY DISEASE STAGING PER NKF: MALE GFR INTERPRETATION: 20-49 YRS: [...] Normal 80 and above >32 mL/min Normal Alt (SGPT) 22 U/L 0-41 [facility] ([facility] CLASSIFICATION CHOLESTEROL FO R ADULTS CHILDREN/ADOLESCENTS* DESIRABLE: <200 MG/DL <170 MG/DL BORDER-LINE HIGH RISK: 200-239 MG/DL 170-199 MG/DL HIGH RISK: >240 MG/DL >200 MG/DL CLASS. FOR PRIMARY LDL CHOL PREVENTION: LDL CHOL-CHILD/ADOLESCENTS* DESIRABLE: <130 MG/DL <110 MG/DL BORDERLINE-HIGH RISK: 130-159 MG/DL 110-129 MG/DL HIGH RISK: >160 MG/DL >130 MG/DL *CHILDREN AND ADOLESCENTS REPRESENTS INDIVIDUALA AGED 2-19 YEARS EXCLUSIVE. CHRONIC KIDNEY DISEASE STAGING PER NKF: MALE GFR INTERPRETATION: 20-49 YRS: [...] Normal 80 and above >32 mL/min Normal Alp 87.6 U/L 35-129 [facility] CLASSIFICATION CHOLESTEROL FO R ADULTS CHILDREN/ADOLESCENTS* DESIRABLE: <200 MG/DL <170 MG/DL BORDER-LINE HIGH RISK: 200-239 MG/DL 170-199 MG/DL HIGH RISK: >240 MG/DL >200 MG/DL CLASS. FOR PRIMARY LDL CHOL PREVENTION: LDL CHOL-CHILD/ADOLESCENTS* DESIRABLE: <130 MG/DL <110 MG/DL BORDERLINE-HIGH RISK: 130-159 MG/DL 110-129 MG/DL HIGH RISK: >160 MG/DL >130 MG/DL *CHILDREN AND ADOLESCENTS REPRESENTS INDIVIDUALA AGED 2-19 YEARS EXCLUSIVE. CHRONIC KIDNEY DISEASE STAGING PER NKF: MALE GFR INTERPRETATION: 20-49 YRS: [...] Normal 80 and above >32 mL/min Normal Ast (Sgot) 17 U/L 0-40 [facility] ([facility] CLASSIFICATION CHOLESTEROL FO R ADULTS CHILDREN/ADOLESCENTS* DESIRABLE: <200 MG/DL <170 MG/DL BORDER-LINE HIGH RISK: 200-239 MG/DL 170-199 MG/DL HIGH RISK: >240 MG/DL >200 MG/DL CLASS. FOR PRIMARY LDL CHOL PREVENTION: LDL CHOL-CHILD/ADOLESCENTS* DESIRABLE: <130 MG/DL <110 MG/DL BORDERLINE-HIGH RISK: 130-159 MG/DL 110-129 MG/DL HIGH RISK: >160 MG/DL >130 MG/DL *CHILDREN AND ADOLESCENTS REPRESENTS INDIVIDUALA AGED 2-19 YEARS EXCLUSIVE. CHRONIC KIDNEY DISEASE STAGING PER NKF: MALE GFR INTERPRETATION: 20-49 YRS: [...] Normal 80 and above >32 mL/min Normal Tbili 0.65 mg/dL 0.0-1.2 [facility] ([facility] CLASSIFICATION CHOLESTEROL FO R ADULTS CHILDREN/ADOLESCENTS* DESIRABLE: <200 MG/DL <170 MG/DL BORDER-LINE HIGH RISK: 200-239 MG/DL 170-199 MG/DL HIGH RISK: >240 MG/DL >200 MG/DL CLASS. FOR PRIMARY LDL CHOL PREVENTION: LDL CHOL-CHILD/ADOLESCENTS* DESIRABLE: <130 MG/DL <110 MG/DL BORDERLINE-HIGH RISK: 130-159 MG/DL 110-129 MG/DL HIGH RISK: >160 MG/DL >130 MG/DL *CHILDREN AND ADOLESCENTS REPRESENTS INDIVIDUALA AGED 2-19 YEARS EXCLUSIVE. CHRONIC KIDNEY DISEASE STAGING PER NKF: MALE GFR INTERPRETATION: 20-49 YRS: [...] Normal 80 and above >32 mL/min Normal Osmolality-Calculated 283.9 Calc [facility] ([facility] CLASSIFICATION CHOLESTEROL FO R ADULTS CHILDREN/ADOLESCENTS* DESIRABLE: <200 MG/DL <170 MG/DL BORDER-LINE HIGH RISK: 200-239 MG/DL 170-199 MG/DL HIGH RISK: >240 MG/DL >200 MG/DL CLASS. FOR PRIMARY LDL CHOL PREVENTION: LDL CHOL-CHILD/ADOLESCENTS* DESIRABLE: <130 MG/DL <110 MG/DL BORDERLINE-HIGH RISK: 130-159 MG/DL 110-129 MG/DL HIGH RISK: >160 MG/DL >130 MG/DL *CHILDREN AND ADOLESCENTS REPRESENTS INDIVIDUALA AGED 2-19 YEARS EXCLUSIVE. CHRONIC KIDNEY DISEASE STAGING PER NKF: MALE GFR INTERPRETATION: 20-49 YRS: [...] Normal 80 and above >32 mL/min Normal Anion Gap 17 mmol/L [facility] ([facility] CLASSIFICATION CHOLESTEROL FO R ADULTS CHILDREN/ADOLESCENTS* DESIRABLE: <200 MG/DL <170 MG/DL BORDER-LINE HIGH RISK: 200-239 MG/DL 170-199 MG/DL HIGH RISK: >240 MG/DL >200 MG/DL CLASS. FOR PRIMARY LDL CHOL PREVENTION: LDL CHOL-CHILD/ADOLESCENTS* DESIRABLE: <130 MG/DL <110 MG/DL BORDERLINE-HIGH RISK: 130-159 MG/DL 110-129 MG/DL HIGH RISK: >160 MG/DL >130 MG/DL *CHILDREN AND ADOLESCENTS REPRESENTS INDIVIDUALA AGED 2-19 YEARS EXCLUSIVE. CHRONIC KIDNEY DISEASE STAGING PER NKF: MALE GFR INTERPRETATION: 20-49 YRS: [...] Normal 80 and above >32 mL/min Normal eGFR 93 # [facility] ( [facility] CLASSIFICATION CHOLESTEROL FO R ADULTS CHILDREN/ADOLESCENTS* DESIRABLE: <200 MG/DL <170 MG/DL BORDER-LINE HIGH RISK: 200-239 MG/DL 170-199 MG/DL HIGH RISK: >240 MG/DL >200 MG/DL CLASS. FOR PRIMARY LDL CHOL PREVENTION: LDL CHOL-CHILD/ADOLESCENTS* DESIRABLE: <130 MG/DL <110 MG/DL BORDERLINE-HIGH RISK: 130-159 MG/DL 110-129 MG/DL HIGH RISK: >160 MG/DL >130 MG/DL *CHILDREN AND ADOLESCENTS REPRESENTS INDIVIDUALA AGED 2-19 YEARS EXCLUSIVE. CHRONIC KIDNEY DISEASE STAGING PER NKF: MALE GFR INTERPRETATION: 20-49 YRS: [...] Normal 80 and above >32 mL/min Normal eGFR Non-Afr. Japanese 80 # [facility] ([facility] CLASSIFICATION CHOLESTEROL FO R ADULTS CHILDREN/ADOLESCENTS* DESIRABLE: <200 MG/DL <170 MG/DL BORDER-LINE HIGH RISK: 200-239 MG/DL 170-199 MG/DL HIGH RISK: >240 MG/DL >200 MG/DL CLASS. FOR PRIMARY LDL CHOL PREVENTION: LDL CHOL-CHILD/ADOLESCENTS* DESIRABLE: <130 MG/DL <110 MG/DL BORDERLINE-HIGH RISK: 130-159 MG/DL 110-129 MG/DL HIGH RISK: >160 MG/DL >130 MG/DL *CHILDREN AND ADOLESCENTS REPRESENTS INDIVIDUALA AGED 2-19 YEARS EXCLUSIVE. CHRONIC KIDNEY DISEASE STAGING PER NKF: MALE GFR INTERPRETATION: 20-49 YRS: [...] Normal 80 and above >32 mL/min Normal ID Date Data Source [id number] 08/11/2019 12:46:34 PM EST [facility] PCName: Sabrina Sanchez-WardDOB: 1960Provider: Dat Ramirez: 08/06/2019 AssessmentElilinus is seen today still complaining of pain, snapping, cracking and popping in her left knee. There is more pain over the lateral compartment medially and the medial pain has increased recently and she has a large effusion. She is having increasing difficulty ambulating distances. Her left knee is swelling and locking. It has been two years since we have gotten an MRI scan of the knee which showed the lateral meniscus tear. Today, it seems like she has the same sy mptoms coming back but also possibly a medial meniscus tear. Because she has come to knee replacement on the contralateral right knee, it makes me wonder if she has more articular cartilage damage than the x-ray leads us to believe. Because of this, I think it is reasonable to update her MRI scan of the left knee. Her pain level is increasing to about a 6-7/10 and she has difficulty ambulating. She uses a walking aid occasionally.Physical Examination:The patient is awake alert and oriented x3. The patient has appropriate mood and affect. The upper extremities have normal strength, sensation, reflexes, muscle tone and coordination. There are no skin lesions in either upper extremity. There are normal pulses in both wrists. These characteristics are important in the event that the patient may need crutches for ambulation in the future.Examination of the left knee: The patient ambulates with antalgia. The left knee has a 1+ effusion. There is pain with passive extension, lacking 5 with a spongy endpo int. There is a positive lateral Thor sign. There is a negative medial Thor sign. No varus or valgus instability is present. Travon, pivot shift and drawer signs are negative. There is significant tenderness present over the lateral joint line. No tenderness over the medial joint line is appreciated. Flexion beyond 100 is limited due to the effusion.Strength, sensation, reflexes and muscle tone in both lower extremities are intact. There are normal pulses in both feet. No skin lesions are present in either lower extremity.Imaging:I reviewed the previous MRI scan of the left knee from 2018 that shows some tricompartmental osteoarthritis and a complex lateral meniscus tear.Diagnosis:1. 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 Signatures Electronically signed by : Laura Hwang, ; Aug 07 2019 8:15AM EST Electronically signed by : Delmy Ramirez M.D.; Aug 11 2019 12:46PM EST (Author) Name Value Range Interpretation Code Description Data Garima rce(s) Supporting Document(s) ID Date Data Source [id number] 08/07/2019 08:25:22 AM EST [facility] PCName: Sabrina Sanchez-WardDOB: 1960Provider: Dat Ramirez: 08/06/2019 De is in today with her . She complains of soreness, numbness and tingling in the lateral aspect of her right knee. She is S/P right knee replacement for a Workers' Comp injury date 10/05/2011. She had a manipulation of the knee and has excellent motion at this point. Her main problem is hypersensitivity of the lateral incision, paresthesias and difficulty kneeling. She is presently disabled from work.Physical Examination:The patient is awake alert and oriented x3. The patient has appropriate mood and affect. The upper extremities have normal strength, sensation, reflexes, muscle tone and coordination. There are no skin lesions in either upper extremity. There are normal pulses in both wrists. These characteristics are important in the event that the patient may need crutches for ambulation in the future.Examination of the right knee: There is a well-healed incision. She has full extension and flexion to 130 degrees, no instability. There is hypersensitivity over the lateral aspect of her incision but not medially. Her gait shows no significant antalgia on the right.Diagnosis:1. Adequate progress after right knee replacement surgery requiring a manipulation for additional motion.2. Hypersensitivity on the lateral aspect of her right knee related to dysesthesia from the incision.Treatment:Authorization is requested from Workers' Compensation for Voltaren Gel.A prescription was sent to her pharmacy. Work / School NoteThe incident described by the patient is a competent medical cause of this injury. The patient's complaints are consistent with the history of the injury/illness. The patient's history of the injury/illness is consistent with my objective findings. The percentage of temporary impairment is 67%. The patient is not working at this time. Limit walking to 1/2 mile in an 8 hour day. No squatting, kneeling, or twisting. No lifting greater than 20 lbs. May need parking accomodations. [facility] 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 She was given a knee immobilizer. She is in today for a check. We previously worked up that knee and she has an MRI scan documented horizontal cleavage tear of the mid body of the lateral meniscus and this may be an aggravation of that condition. She has been in a knee immobilizer since, using crutches for balance with full weightbearing. I have taken the knee immobilizer off and examined her knee. Physical examination: The patient is awake alert and oriented x3. The patient has appropriate mood and affect. The upper extremities have normal strength, sensation, reflexes, muscle tone and coordination. There are no skin lesions in either upper extremity. There are normal pulses in both wrists. These characteristics are important in the event that the patient may need crutches for ambulation in the future.Examination of the left knee shows a 1+ effusion. Medial and lateral Thor sign are really equivocal. She has flexion to 95 degrees, full extension without pain. No varus or valgus instability. On deep palpation, there is some posterolateral tenderness.I have reviewed the report from her x-rays at [facility], which show no fracture and are consistent with an enchondroma of the proximal tibia. Diagnosis:1. Lateral meniscus tear, left knee, aggravated by a twisting injury recently. Treatment: We will discontinue the knee immobilizer. She hasn't worked for two or three years, so there is no note needed for work. I have suggested either a short bout of physical therapy or a home-based exercise program. She would prefer the latter. I went over the exercises. She will take Aleve twice a day and see us back in three to four weeks for a follow-up check. If she is unimproved, we will consider further treatment at that time. Signatures Electronically signed by : Finn Erwin, ; Jul 11 2019 4:11PM EST (Author) Electronically signed by : Delmy Ramirez M.D.; Jul 14 2019 8:40AM EST Name Value Range Interpretation Code Description Data Garima rce(s) Supporting Document(s) ID Date Data Source [id number] 06/10/2019 12:00:00 AM EST [facility] Rudolph Guallpa DPM Patient Name:SABRINA [id number] Date of : 1960[place] [address] Date of Exam: 06/10/2019PH#: Fax: [phone] EXAM: MRI ANKLE LEFT WITHOUT CONTRASTCLINICAL INFORMATION: Pain and swelling. No trauma.3T multiplanar MRI imaging of the left ankle was obtained using varioussequences.There are no prior left ankle MRI's for comparison.The te ndons of the tibialis anterior, extensor hallucis and extensordigitorum muscles are intact and of normal appearing low signal throughout. There is a focus of T2 hypersignal seen within the tibialis posteriortendon just distal to the medial malleolus. Mild T2 hypersignal is seen inthe soft tissues surrounding that portion of the tibialis posterior tendon. The flexor digitorum and flexor hallucis tendons are intact and of normalappearing low signal throughout. The Achilles tendon is intact and ofnormal appearing low signal throughout. The anterior andposterior/inferior tibiofibular ligaments are intact. There isirregularity and redundancy of the anterior talofibular ligament which isintact. The posterior talofibular ligament is intact. Thecalcaneofibular ligament is intact. The ligaments within the sinus tarsiare normal and the sinus tarsi fat signal is preserved. The deltoidligament complex is intact. The chondral surfaces of the talar dome andtibial plafond and smooth and without abnormal chondral or subchondralsignal. There is no ankle joint effusion. The subtalar joints are withinnormal limits. There is a small cystic area in the os calcis deep to theangle of [place], however, there is no evidence of cystic degenerativechange seen involving the lateral talar process. There is a heel valgusdeformity. There is no significant degenerative spurring seen involvingthe inferior talofibular articulation.IMPRESSION:1. There is a focus of T2 hypersignal seen in the tibialis posteriortendon with slight edema seen surrounding that portion of the tendon.Although that portion of the tendon is not frankly abnormally enlarged, Icannot rule out the possibility of a Grade I tear. This should becorrelated clinically.2. 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 There is a heel valgus deformity but there is no evidence of lateralhindfoot impingement at this time.4. Other findings as described above.Accredited by the [employer] in MR.PAT Marc/[place] you for referring SABRINA ANGEL to our office. Electronically Signed - WILBUR GAN DO 06/12/19 16:22 Name Value Range Interpretation Code Description Data Garima rce(s) Supporting Document(s) ID Date Data Source [id number] 05/14/2019 12:36:15 PM EST [facility], PCName: Sabrina AngelDOB: 1960Provider: Dat Ramirez: 04/30/2019 AssessmentElilinus Segovia is in today for a follow-up visit after knee replacement surgery. She had a right total knee arthroplasty on 12/29/13 for a work-related injury of 10/05/11. She had a manipulation under anesthesia because of stiffness in the knee and she gained dramatic increased motion. The manipulation was on 03/27/14. She is in today because her right knee aches and is sore at times, she ambulates with minimal antalgia and because it is a Workers' Comp case, she continues to follow-up. She has not returned to work. She says that she finds some relief from non-generic Voltaren Gel and that the generic preparation of this gave her a terrible rash in her knee and made her feel sick, as if she had the flu, for two or three days after it was applied. She did it a second time and she had the same reaction. As a result, she wants a prescription for non-g eneric Voltaren Cream, which she finds helpful. The purpose for her visit today is to report that her knee still gives her some trouble and that she still would benefit from the Voltaren Cream. I have suggested trying some CBD oil. Physical Examination: The patient is awake alert and oriented x3. The patient has appropriate mood and affect. The upper extremities have normal strength, sensation, reflexes, muscle tone and coordination. There are no skin lesions in either upper extremity. There are normal pulses in both wrists. These characteristics are important in the event that the patient may need crutches for ambulation in the future. Examination of the right knee: There is a well- healed surgical excision. Full extension. Flexion to 123 degrees. There is no varus or valgus instability and her gait shows mild antalgia. Diagosis:1. Anterior irritability after primary right knee replacement requiring a manipulation postoperatively, now five years postoperatively from both of those, with chronic low grade irritability in the front of the knee. Treatment: She cannot take oral antiinflammatories because of GI upset and so I have recommended Voltaren Gel, and, again, the non-generic preparation is the only one that does not give her a side effect. My report here respectfully requests from Workers' Comp that she be covered for non-generic Voltaren Gel to be applied to the right knee intermittently. Work / School NoteThe incident described by the patient is a competent medical cause of this injury. The patient's complaints are consistent with the history of the injury/illness. The patient's history of the injury/illness is consistent with my objective findings. The percentage of temporary impairment is 50%. The patient is not working at this time. Sedentary work - limit walking to 1/4 mile in an 8 hour day. No squatting, kneeling, or twisting. No lifting greater than 10 lbs. Will need parking accomodations. Sabrina SanchezLuca is currently not working. Signatures Electronically signed by : Carlyedwin Rip, ; Apr 30 2019 11:07AM EST (Author) Electronically signed by : Janna Lacy, ; May 01 2019 10:08AM EST Electronically signed by : Delmy Ramirez M.D.; May 01 2019 5:26PM EST Electronically signed by : Delmy Ramirez M.D.; May 14 2019 12:36PM EST (Author) Name Value Range Interpretation Code Description Data Garima rce(s) Supporting Document(s) Procedure Vital Signs ID Date Data Source UNK Name Value Range Interpretation Code Description Data Source(s) Oxygen saturation in Arterial blood by Pulse oximetry 96 % 96 % [facility] ([facility] Body mass index (BMI) [Ratio] 41.3 kg/m2 41.3 k g/m2 [facility] ([facility] [place] body weight 125 [lb_av] 125 [lb_av] MEDEN T ([facility] Body weight 248.00 [lb_av] 248.00 [lb_av] MEDEN T ([facility] Body height 65 [in_i] 65 [in_i] [facility] ([facility] 5'5" Respiratory rate 16 /min 16 /min [facility] ( [facility] Heart rate 50 /min 50 /min [facility] ([facility] Body temperature 98.0 [degF] 98.0 [degF] [facility] ([facility] Diastolic blood pressure 68 mm[Hg] 68 mm[Hg] [facility] ([facility] Systolic blood pressure 108 mm[Hg] 108 mm[Hg] M EDENT ([facility] Oxygen saturation in Arterial blood by Pulse oximetry 96 % 96 % [facility] ([facility] [place] body weight 125 [lb_av] 125 [lb_av] MEDEN T ([facility] Body height 65 [in_i] 65 [in_i] [facility] 5'5" Respiratory rate 16 /min 16 /min [facility] ( [facility] Heart rate 87 /min 87 /min [facility] ([facility] Body temperature 98.0 [degF] 98.0 [degF] [facility] ([facility] Diastolic blood pressure 70 mm[Hg] 70 mm[Hg] [facility] ([facility] Systolic blood pressure 102 mm[Hg] 102 mm[Hg] M EDENT ([facility] Oxygen saturation in Arterial blood by Pulse oximetry 97 % 97 % [facility] ([facility] Body mass index (BMI) [Ratio] 40.9 kg/m2 40.9 k g/m2 [facility] ([facility] [place] body weight 125 [lb_av] 125 [lb_av] MEDEN T ([facility] Body weight 246.00 [lb_av] 246.00 [lb_av] MEDEN T ([facility] Body height 65 [in_i] 65 [in_i] [facility] ([facility] 5'5" Respiratory rate 16 /min 16 /min [facility] ( [facility] Heart rate 83 /min 83 /min [facility] ([facility] Body temperature 97.8 [degF] 97.8 [degF] [facility] ([facility] Diastolic blood pressure 64 mm[Hg] 64 mm[Hg] [facility] ([facility] Systolic blood pressure 124 mm[Hg] 124 mm[Hg] M EDENT ([facility] Oxygen saturation in Arterial blood by Pulse oximetry 98 % 98 % [facility] ([facility] Body mass index (BMI) [Ratio] 40.8 kg/m2 40.8 k g/m2 [facility] ([facility] [place] body weight 125 [lb_av] 125 [lb_av] MEDEN T ([facility] Body weight 245.00 [lb_av] 245.00 [lb_av] MEDEN T ([facility] Body height 65 [in_i] 65 [in_i] [facility] ([facility] 5'5" Respiratory rate 18 /min 18 /min [facility] ( [facility] Heart rate 56 /min 56 /min [facility] ([facility] Body temperature 98.4 [degF] 98.4 [degF] [facility] ([facility] Diastolic blood pressure 88 mm[Hg] 88 mm[Hg] [facility] ([facility] Systolic blood pressure 108 mm[Hg] 108 mm[Hg] M EDENT ([facility] Oxygen saturation in Arterial blood by Pulse oximetry 98 % 98 % [facility] ([facility] Body mass index (BMI) [Ratio] 41.9 kg/m2 41.9 k g/m2 [facility] ([facility] [place] body weight 125 [lb_av] 125 [lb_av] MEDEN T ([facility] Body weight 252.00 [lb_av] 252.00 [lb_av] MEDEN T ([facility] Body height 65 [in_i] 65 [in_i] [facility] ([facility] 5'5" Respiratory rate 16 /min 16 /min [facility] ( [facility] Heart rate 80 /min 80 /min [facility] ([facility] Body temperature 96.8 [degF] 96.8 [degF] [facility] ([facility] Diastolic blood pressure 72 mm[Hg] 72 mm[Hg] [facility] ([facility] Systolic blood pressure 104 mm[Hg] 104 mm[Hg] M EDENT ([facility] Body mass index (BMI) [Ratio] 41.9 kg/m2 41.9 k g/m2 [facility] ([facility]) Body weight 252.00 [lb_av] 252.00 [lb_av] MEDEN T ([facility] ) Body height 65 [in_i] 65 [in_i] [facility] ([facility] 5'5" Oxygen saturation in Arterial blood by Pulse oximetry 99 % 99 % [facility] ([facility] Body mass index (BMI) [Ratio] 41.3 kg/m2 41.3 k g/m2 [facility] ([facility] [place] body weight 125 [lb_av] 125 [lb_av] MEDEN T ([facility] Body weight 248.00 [lb_av] 248.00 [lb_av] MEDEN T ([facility] Body height 65 [in_i] 65 [in_i] [facility] ([facility] 5'5" Respiratory rate 18 /min 18 /min [facility] ( [facility] Heart rate 80 /min 80 /min [facility] ([facility] Body temperature 97.9 [degF] 97.9 [degF] [facility] ([facility] Diastolic blood pressure 88 mm[Hg] 88 mm[Hg] [facility] ([facility] Systolic blood pressure 124 mm[Hg] 124 mm[Hg] M EDENT ([facility] Oxygen saturation in Arterial blood by Pulse oximetry 97 % 97 % [facility] ([facility] Body mass index (BMI) [Ratio] 41.6 kg/m2 41.6 k g/m2 [facility] ([facility] Body weight 250.00 [lb_av] 250.00 [lb_av] MEDEN T ([facility] Body height 65 [in_i] 65 [in_i] [facility] ([facility] 5'5" Respiratory rate 14 /min 14 /min [facility] ( [facility] Heart rate 80 /min 80 /min [facility] ([facility] Body temperature 97.5 [degF] 97.5 [degF] [facility] ([facility] Diastolic blood pressure 84 mm[Hg] 84 mm[Hg] DANIELLE ([facility] Systolic blood pressure 134 mm[Hg] 134 mm[Hg] Radhames HERNANDEZ ([facility] Oxygen saturation in Arterial blood by Pulse oximetry 98 % 98 % DANIELLE ([facility] Body mass index (BMI) [Ratio] 41.3 kg/m2 41.3 k g/m2 [facility] ([facility] Body weight 248.00 [lb_av] 248.00 [lb_av] MEDEN T ([facility] Body height 65 [in_i] 65 [in_i] [facility] ([facility] 5'5" Respiratory rate 18 /min 18 /min [facility] ( [facility] Heart rate 70 /min 70 /min MEDDARLENE ([facility] Body temperature 97.8 [degF] 97.8 [degF] [facility] ([facility] Diastolic blood pressure 88 mm[Hg] 88 mm[Hg] DANIELLE ([facility] Systolic blood pressure 136 mm[Hg] 136 mm[Hg] Radhames HERNANDEZ ([facility]
--- OUTSIDE RECORDS SUMMARY | 2020-06-25 15:15 | CCD | Continuity of Care Document ---
Author Author Sabrina BLAND RP A Organization Unknown Address [address] [place] [address] Phone [phone] Problems Active Problems Provider Date Hypothyroidism Bruce [...] every day 10tabs Gaurav Lagunas D.O., FAAFP Nucynta 50mg Tablets 1 by mouth twice a day (Istop: 255251547) 14tabs Gaurav Lagunas D.O., F AAFP 03/26/2020 Silvadene 1% Cream top to left leg twice a day 100gm Gaurav Lagunas D.O., FAAFP Geritol Complete Tablets 1 tab by mouth once a day otc Elena Foster FNP- 0 Levothyroxine Sodium 125mcg Tablet s Take 1 Tablet By Mouth Every Day 90tabs Bruce Contreras M.D . 07/28/2019 Breo Ellipta 200-25mcg/Inh Aerosol Inhale 1 puff By Mouth Every Day 60units Bruce Contreras M.D . 01/16/2018 Voltaren 1% Gel apply bilateral to legs four times a day mdd 4 gm 100gm Bruce Contreras M.D . 07/31/2016 History Medications Keflex 500mg Capsules 1 tab by mouth three times a day for 10 days 30caps Gaurav Lagunas D.O., F AAFP 03/24/2020 - 03/26/2020 Immunizations CPT Code Status Date Vaccine Lot # [id number] Given 03/24/2020 Tdap Tetanus,Dip htheria Toxoids/Acellular Pertussis 7Yrs Or Older [id number] Given 03/02/2020 Influenza Virus Vaccine, Quadrivalent, Slit Virus, Im Use 3Y & Up Vital Signs Date Vital Result Comment 03/26/2020 10:51am BP Systolic 102 mmHg BP Diastolic 70 mmHg Body Temperature 98.0 F Heart Rate 87 /min Respiratory Rate 16 /min Height 65 inches 5'5" [place] Body Weight 125 lb O2 % BldC Oximetry 96 % 03/24/2020 12:04pm BP Systolic 124 mmHg BP Diastolic 64 mmHg Body Temperature 97.8 F Heart Rate 83 /min Respiratory Rate 16 /min Height 65 inches 5'5" Weight 246.00 lb [place] Body Weight 125 lb BMI (Body Mass [...] eGFR 109 # Calc 5 eGFR Non-Afr. Armenian 94 # Calc 6 1 SRC:LEFT LEG [...] 6 CKD-EPI Procedures Date Code Description Status 01/15/2020 45840 Electrocardiogram Complete Compl eted 01/15/2020 69630 Electrocardiogram Complete Compl eted 09/02/2018 [id number] Mammogram Completed Medical Devices Description No Information Available Encounters Type Date Location Provider Dx Diagnosis Office Visit 03/24/2020 11:30a [facility] Steve Bland, RP A L03.116 Cellulitis of left lower limb S80.812A Abrasion, left lower leg, in itial encounter Office Visit 03/02/2020 11:00a [facility] Bruce Contreras M. D. E03.9 Hypothyroidism, unspecified J45.909 Unspecified asthma, uncompli cated Z23 Encounter for immunization Office Visit 01/15/2020 2:45p [facility] Elena Foster FNP-B C Z01.818 Encounter for other preprocedural examination J45.909 Unspecified asthma, uncompli cated Z01.818 Encounter for other preproce dural examination M25.50 Pain in unspecified joint J45.909 Unspecified asthma, uncompli cated Office Visit 11/24/2019 3:40p [facility] Bruce Contreras M. D. M25.50 Pain in unspecified joint Assessments Date Code Description Provider 03/26/2020 L03.116 Cellulitis of left lower limb Me Steve robledo, RPA 03/26/2020 S80.812A Abrasion, left lower leg, initia l encounter Steve Bland, RPA 03/24/2020 L03.116 Cellulitis of left lower limb Me Steve robledo, RPA 03/24/2020 S80.812A Abrasion, left lower leg, initia l encounter Steve Bland, RPA 03/02/2020 E03.9 Hypothyroidism, unspecified [facility] Bruce acosta M.D. 03/02/2020 J45.909 Unspecified asthma, uncomplicate d Bruce Contreras M.D. 03/02/2020 Z23 Encounter for immunization Bruce Pena M.D. 02/24/2020 E03.9 Hypothyroidism, unspecified Jasvir Lagunas D.O., [facility] 02/24/2020 M25.50 Pain in unspecified joint [facility]., [facility] 01/15/2020 Z01.818 Encounter for other preprocedura l examination RoundsElena FNP-BC 01/15/2020 J45.909 Unspecified asthma, uncomplicate d RoundsElena [facility]- 01/15/2020 Z01.818 Encounter for other preprocedura l examination Rounds, WAGNER AvilaP-BC 01/15/2020 M25.50 Pain in unspecified joint Rounds Elena [facility]-BC 01/15/2020 J45.909 Unspecified asthma, uncomplicate d Elena Foster [facility]-BC 11/24/2019 M25.50 Pain in unspecified joint Bruce Yepez M.D. Plan of Treatment No Information Available Functional Status Description No Information Available Mental Status Description No Information Available Referrals Refer to Dr Reason for Referral Status Appt Date [facility] *Priority Referral Paris lly circumferential tissue avulsion (16cm x 2cm) right leg from dog leash. Subsequent cellulitis. On Levaquin. Much pain. Negative C&S. Sent [address] [place] [address] [phone]
--- OUTSIDE RECORDS SUMMARY | 2020-06-25 15:15 | CCD | Continuity of Care Document ---
Author Author Sabrina BLAND RP A Organization Unknown Address [address] [place] [address] Phone [phone] Problems Active Problems Provider Date Hypothyroidism Bruce [...] 1 by mouth twice a day (Istop: [id number]) 14tabs Gaurav Lagunas D.O., F AAFP 03/26/2020 [...] Lagunas D.O., F AAFP 03/24/2020 - 03/26/2020 Medications Administered in Office Medication SIG Qnty Indications Ordering Provider Date Injection (SC)/(Im) Injection Steve Bland RPA 03/24/2020 Immunizations CPT Code Status Date Vaccine Lot # [id number] Given 03/24/2020 Tdap Tetanus,Dip htheria Toxoids/Acellular Pertussis 7Yrs Or Older [id number] Given 03/02/2020 Influenza Virus Vaccine, Quadrivalent, Slit Virus, Im Use 3Y & Up Vital Signs Date Vital Result Comment 03/26/2020 10:51am BP Systolic 102 mmHg BP Diastolic 70 mmHg Body Temperature 98.0 F Heart Rate 87 /min Respiratory Rate 16 /min Height 65 inches 5'5" [place] Body Weight 125 lb O2 % BldC Oximetry 96 % 03/24/2020 12:04pm BP Systolic 124 mmHg BP Diastolic 64 mmHg Body Temperature 97.8 F Heart Rate 83 /min Respiratory Rate 16 /min Height 65 inches 5'5" Weight 246.00 lb [place] Body Weight 125 lb BMI (Body Mass [...] eGFR 109 # Calc 5 eGFR Non-Afr. British 94 # Calc 6 1 SRC:LEFT LEG [...] CKD-EPI Procedures Date Code Description Status 03/24/2020 53552 Injection (SC)/(Im) Completed 01/15/2020 41954 Electrocardiogram Complete Compl eted 01/15/2020 50510 Electrocardiogram Complete Compl eted 09/02/2018 [id number] Mammogram Completed Medical Devices Description No Information Available Encounters Type Date Location Provider Dx Diagnosis Office Visit 03/24/2020 11:30a [facility] Steve Bland, RP A L03.116 Cellulitis of left lower limb S80.812A Abrasion, left lower leg, in itial encounter Office Visit 03/02/2020 11:00a [facility] Bruce Contreras M. D. E03.9 Hypothyroidism, unspecified J45.909 Unspecified asthma, uncompli cated Z23 Encounter for immunization Office Visit 01/15/2020 2:45p [facility] Elena Foster FNP-B C Z01.818 Encounter for other preprocedural examination J45.909 Unspecified asthma, uncompli cated Z01.818 Encounter for other preproce dural examination M25.50 Pain in unspecified joint J45.909 Unspecified asthma, uncompli cated Office Visit 11/24/2019 3:40p [facility] Bruce Contreras M. D. M25.50 Pain [...] Steve Bland, RPA 03/02/2020 E03.9 [facility], [facility] 03/02/2020 J45.909 Unspecified asthma, uncomplicate d Bruce Contreras M.D. 03/02/2020 Z23 Encounter for immunization Bruce Pena M.D. 02/24/2020 E03.9 Hypothyroidism, unspecified Jasvir Lagunas D.O., [facility] 02/24/2020 M25.50 Pain in unspecified joint Kalani Lagunas D.O., FAAFP 01/15/2020 Z01.818 Encounter for other preprocedura l examination Rounds, ElenaBAILEY Plascencia-BC 01/15/2020 J45.909 Unspecified asthma, uncomplicate d Cristian ElenaBAILEY Plascencia-BC 01/15/2020 Z01.818 Encounter for other preprocedura l examination RoundsElena FNP-BC 01/15/2020 M25.50 Pain in unspecified joint Elena Foster FNP-BC 01/15/2020 J45.909 Unspecified asthma, uncomplicate d Elena Foster FNP-BC 11/24/2019 M25.50 Pain in unspecified joint Bruce Ypeez M.D. Plan of Treatment No Information Available Functional Status Description No Information Available Mental Status Description No Information Available Referrals Refer to Dr Reason for Referral Status Appt Date Wound Care Center *Priority Referral Paris goldsmith circumferential tissue avulsion (16cm x 2cm) right leg from dog leash. Subsequent cellulitis. On Levaquin. Much pain. Negative C&S. Sent [address] [place] [address] [phone]
[2020-06-25] MEDS ORDERED: METOPROLOL TART 25 MG TABLET PO ONE (15:45)
[2020-06-25] MEDS ORDERED: ASPIRIN 81 MG CHEW TABLET PO ONE (15:45)
--- NOTE | 2020-06-25 15:57 | REP ---
INDICATION: CHEST PAIN. COMPARISON: 01/18/2016. TECHNIQUE: SINGLE PORTABLE AP VIEW OF THE CHEST WAS PERFORMED. FINDINGS: The lungs appear clear with no acute infiltrate or pulmonary edema. There is mild cardiomegaly. There is mild tortuosity of the thoracic aorta. The mediastinal silhouette is unchanged. There is mild elevation of the left hemidiaphragm. There is blunting of the left costophrenic angle and I cannot exclude a small left effusion. Metallic clips are seen in the upper abdomen. IMPRESSION: No acute infiltrate seen in either lung. Cannot exclude small left effusion. Mild cardiomegaly. <Electronically signed by Sean Tony > 06/25/20 8525
[2020-06-25] MEDS: NS 1,000 ML IV SCH (16:01)
[2020-06-25 16:06] LABS: BASO % 0.4 % (0.0-1.0); EOS # 0.2 10^3/uL (0.0-0.5); EOS % 3.7 % (0.0-3.0); HEMATOCRIT 43.2 % (36.0-47.0); HEMOGLOBIN 13.8 g/dl (12.0-15.5); LYMPH # 1.3 10^3/uL (1.5-5.0); LYMPH % 26.3 % (24.0-44.0); MEAN CORPUSCULAR HEMOGLOBIN 29.6 pg (27.0-33.0); MEAN CORPUSCULAR HGB CONC 31.9 g/dl (32.0-36.5); MEAN CORPUSCULAR VOLUME 92.7 fl (80.0-96.0); MONO # 0.6 10^3/uL (0.0-0.8); MONO % 11.6 % (0.0-5.0); NEUTROPHILS % 57.8 % (36.0-66.0); PLATELET COUNT, AUTOMATED 310 10^3/uL (150-450); RED BLOOD COUNT 4.66 10^6/uL (4.00-5.40); WHITE BLOOD COUNT 5.1 10^3/uL (4.0-10.0)
[2020-06-25] MEDS: METOPROLOL 5 MG/5 ML VIAL IV SCH ×3 (16:06→16:18)
[2020-06-25 16:12] LABS: VENOUS BASE EXCESS -1.8 (-2.0-2.0); VENOUS HCO3 24.4 MEQ/L (23.0-27.0); VENOUS O2 SATURATION 62.6 % (60.0-80.0); VENOUS PARTIAL PRESSURE CO2 46.6 mmHg (38.0-50.0); VENOUS PARTIAL PRESSURE O2 34.2 mmHg (30.0-50.0); VENOUS PH 7.336 UNITS (7.330-7.430); VENOUS STANDARD HCO3 22.1 MEQ/L; VENOUS TOTAL CO2 25.8 MEQ/L (24.0-28.0)
[2020-06-25 16:24] LABS: INR 0.97; PROTHROMBIN TIME 13.1 SECONDS (12.5-14.3)
[2020-06-25 16:46] LABS: ALBUMIN 3.6 GM/DL (3.2-5.2); ALT/SGPT 36 U/L (12-78); BILIRUBIN,DIRECT 0.2 MG/DL (0.0-0.2); BILIRUBIN,TOTAL 0.7 MG/DL (0.2-1.0); BLOOD UREA NITROGEN 13 MG/DL (7-18); CALCIUM LEVEL 8.8 MG/DL (8.8-10.2); CARBON DIOXIDE LEVEL 29 MEQ/L (21-32); CHLORIDE LEVEL 109 MEQ/L (98-107); CK-MB VALUE MASS < 1.0 NG/ML (<3.6); CPK CREATINE PHOSPHOKINASE 77 U/L (26-192); CREATININE FOR GFR 0.86 MG/DL (0.55-1.30); GLOMERULAR FILTRATION RATE > 60.0 (>45); GLUCOSE, FASTING 99 MG/DL (70-100); LIPASE 118 U/L (73-393); POTASSIUM SERUM 4.3 MEQ/L (3.5-5.1); SODIUM LEVEL 143 MEQ/L (136-145); TOTAL PROTEIN 6.6 GM/DL (6.4-8.2); TROPONIN I < 0.02 NG/ML (< 0.10)
[2020-06-25] MEDS ORDERED: METOPROLOL 5 MG/5 ML VIAL IV STA (17:00)
[2020-06-25] MEDS ORDERED: ACETAMINOPHEN TAB 650MG DOSE (2X325MG) PO PRN (17:15)
--- OUTSIDE RECORDS SUMMARY | 2020-06-25 17:17 | CCD ---
Author Author [facility] Organization [facility] Address Unknown Phone Unavailable Care Team Providers Care Precipitator Operator Name Role Phone Josué CONTRERAS MD [...] Unavailable LORRAINE, H BRUCE MD Unavailable Unavailable Maybrook, A Ana PA Unavailable Unavailable Maybrook, A Ana PA Unavailable Unavailable Maybrook, A Ana PA Unavailable Unavailable Maybrook, A Ana PA Unavailable Unavailable Maybrook, A Ana PA Unavailable Unavailable Radha, A Naa PA Unavailable Unavailable Radha, A Ana PA Unavailable Unavailable Radha, A Ana PA Unavailable Unavailable Radha, A Ana PA Unavailable Unavailable Radha, A Ana PA Unavailable Unavailable Maybrook, A Ana PA Unavailable Unavailable Radha, A Ana PA Unavailable Unavailable Radha, A Ana PA Unavailable Unavailable Maybrook, A Ana PA Unavailable Unavailable Radha, A Ana PA Unavailable Unavailable Maybrook, A Ana PA Unavailable Unavailable Radha, A Ana PA Unavailable Unavailable Radha, A Ana PA Unavailable Unavailable Maybrook, A Ana PA Unavailable Unavailable Radha, A Ana PA Unavailable Unavailable Radha, A Ana PA Unavailable Unavailable Radha, A Ana PA Unavailable Unavailable Maybrook, A Ana PA Unavailable Unavailable Radha, A Ana PA Unavailable Unavailable Maybrook, A Ana PA Unavailable Unavailable Maybrook, A Ana PA Unavailable Unavailable Maybrook, A Ana PA Unavailable Unavailable Radha, A Ana PA Unavailable Unavailable Radha, A Ana PA Unavailable Unavailable Radha, A Ana PA Unavailable Unavailable MOYER, M SHIV CEMENTER HAND Unavailable Unavailable MOYER, M SHIV CEMENTER HAND Unavailable Unavailable MOYER, M SHIV CEMENTER HAND Unavailable Unavailable MOYER, M SHIV CEMENTER HAND Unavailable Unavailable MOYER, M SHIV CEMENTER HAND Unavailable Unavailable MOYER, M SHIV CEMENTER HAND Unavailable Unavailable MOYER, M SHIV CEMENTER HAND Unavailable Unavailable MOYER, M SHIV CEMENTER HAND Unavailable Unavailable MOYER, M SIHV CEMENTER HAND Unavailable Unavailable MOYER, M SHIV CEMENTER HAND Unavailable Unavailable MOYER, M SHIV CEMENTER HAND Unavailable Unavailable MOYER, M SHIV CEMENTER HAND Unavailable Unavailable MOEYR, M SHIV CEMENTER HAND Unavailable Unavailable MOYER, M SHIV CEMENTER HAND Unavailable Unavailable MOYER, M SHIV CEMENTER HAND Unavailable Unavailable MOYER, M HSIV CEMENTER HAND Unavailable Unavailable MOYER, M SHIV CEMENTER HAND Unavailable Unavailable MOYER, M SHIV CEMENTER HAND Unavailable Unavailable MOYER, M SHIV CEMENTER HAND Unavailable Unavailable MOYER, M SHIV CEMENTER HAND Unavailable Unavailable MOYER, M SHIV CEMENTER HAND Unavailable Unavailable MOYER, M SHIV CEMENTER HAND Unavailable Unavailable MOYER, M SHIV CEMENTER HAND Unavailable Unavailable MOYER, M SHIV CEMENTER HAND Unavailable Unavailable MOYER, M SHIV CEMENTER HAND Unavailable Unavailable MOYER, M SHIV CEMENTER HAND Unavailable Unavailable MOYER, M SHIV CEMENTER HAND Unavailable Unavailable MOYER, M SHIV CEMENTER HAND Unavailable Unavailable MOYER, M SHIV CEMENTER HAND Unavailable Unavailable MOYER, M SHIV CEMENTER HAND Unavailable Unavailable MOYER, M SHIV CEMENTER HAND Unavailable Unavailable MOYER, M SHIV CEMENTER HAND Unavailable Unavailable MOYER, M SHIV CEMENTER HAND Unavailable Unavailable MOYER, M SHIV CEMENTER HAND Unavailable Unavailable MOYER, M SHIV CEMENTER HAND Unavailable Unavailable MOYER, M SHIV CEMENTER HAND Unavailable Unavailable MOYER, M SHIV CEMENTER HAND Unavailable Unavailable MOYER, M SHIV CEMENTER HAND Unavailable Unavailable MOYER, M SHIV CEMENTER HAND Unavailable Unavailable MOYER, M SHIV CEMENTER HAND Unavailable Unavailable MOYER, M SHIV CEMENTER HAND Unavailable Unavailable MOYER, M SHIV CEMENTER HAND Unavailable Unavailable MOYER, M SHIV CEMENTER HAND Unavailable Unavailable MOYER, M SHIV CEMENTER HAND Unavailable Unavailable MOYER, M SHIV CEMENTER HAND Unavailable Unavailable MOYER, M SHIV CEMENTER HAND Unavailable Unavailable MOYER, M SHIV CEMENTER HAND Unavailable Unavailable MOYER, M SHIV CEMENTER HAND Unavailable Unavailable MOYER, M SHIV CEMENTER HAND Unavailable Unavailable MOYER, M SHIV CEMENTER HAND Unavailable Unavailable MOYER, M SHIV CEMENTER HAND Unavailable Unavailable MOYER, M SHIV CEMENTER HAND Unavailable Unavailable MOYER, M SHIV CEMENTER HAND Unavailable Unavailable MOYER M SHIV CEMENTER HAND Unavailable Unavailable MOYER M SHIV CEMENTER HAND Unavailable Unavailable MOYER M SHIV CEMENTER HAND Unavailable Unavailable MOYER M SHIV CEMENTER HAND Unavailable Unavailable MOYER, M SHIV CEMENTER HAND Unavailable Unavailable ISAAC DRIVER MD Unavailable Unavailable ISAAC DRIVER MD Unavailable Unavailable ISAAC DRIEVR MD Unavailable Unavailable ISAAC DRIVER MD Unavailable [...] Unavailable Unavailable Hugo RAMIREZ MD Unavailable Unavailable uHgo RAMIREZ MD Unavailable Unavailable Hugo RAMIREZ MD [...] B DELMY MD Unavailable Unavailable GREENKY, B DEMLY MD Unavailable Unavailable GREENKY, B DELMY MD [...] is protected by Article 27-F of the [facility] Public Health law. If you continue you may have access to information: Regarding HIV / AIDS; Provided by facilities licensed or operated by the [facility] Office of Mental Health; or Provided by the [facility] Office for People With Developmental Disabilities. If such information is present, then the following [facility] mandated warning applies: This information [...] law may result in a fine or long-term sentence or both. A general authorization for the release of medical or other information is NOT sufficient authorization for further disc losure. Allergies and Adverse Reactions Type Description Substance Reaction Status Data Source(s ) No Known Food Allergies No Known Food Allergies [facility] ENVIRONMENTAL BANDAIDS AND TAPE BANDAIDS AND TAPE [facility] Drug allergy ALL ORAL NARCOTICS ALL ORAL NARCOTICS ABD PAIN; ABD PAIN; VOMITING; VOMITING [facility] ENVIRONMENTAL seasonal seasonal [facility] BRANDNAME BIAXIN BIAXIN PEELING MUCOUS MEMBRANES [facility] Family History Family Member Name Family Member Gender Family Member Status Date o f Status Description Data Source(s) Unknown Unknown Problem [facility] ([facility]) Encounters Encounter Providers Location Date Indications Data Source(s ) Outpatient Attender: DELMY RAMIREZ MDReferrer: BRUCE TAYLOR MD 06/23/2020 12:48:43 PM EST [facility] Outpatient Attender: DELMY RAMIREZ MDReferrer: BRUCE TAYLOR MD 06/23/2020 12:48:41 PM EST [facility] Outpatient Attender: ALEX MCCLELLAN DPM PCConsultant: BRUCE CONTRERAS MD 06/08/2020 09:24:00 AM EST - 06/08/2020 09:24:00 AM EST [facility] Outpatient Attender: BRUCE CONTRERAS MD [facility] 08:30:00 AM EST [facility] ([facility] Unknown [address] [facility], [facility] [id number] 04/28/2020 12:00:00 AM EST eCW1 ([facility]) Outpatient Attender: DELMY RAMIREZ MDReferrer: BRUCE TAYLOR MD 04/02/2020 11:10:15 AM EDT [facility] Outpatient Attender: DELMY RAMIREZ MDReferrer: BRUCE TAYLOR MD 03/31/2020 02:56:16 PM EDT [facility] Outpatient Attender: Steve PHILIPPE [place] [facility] 10:40:00 AM EDT [facility] ([facility] Outpatient Attender: Steve PHILIPPE [place] [facility] 11:30:00 AM EDT [facility] ([facility] Outpatient Attender: DELMY RAMIREZ MDReferrer: BRUCE TAYLOR MD 03/12/2020 05:19:27 PM EDT [facility] Outpatient Attender: BRUCE CONTRERAS MD [place] [facility] 11:00:00 AM EDT [facility] ([facility] Outpatient Attender: Ana Garcia PAReferrer: BRUCE CONTRERAS MD 02/06/2020 11:21:11 AM EDT [facility] Recurring Patient Attender: DELMY RAMIREZ MDReferrer: BRUCE LUTHER MD 02/04/2020 11:29:15 AM EDT [facility] Out[facility] Attender: SHIV MOYER NP [place] [facility] 01/14 02:45:00 PM EDT [facility] ([facility] Outpatient Attender: BRUCE CONTRERAS MD [place] [facility] 03:40:00 PM EDT [facility] ([facility] Outpatient Attender: DELMY RAMIREZ MDReferrer: BRUCE TAYLOR MD 11/19/2019 12:03:29 PM EDT [facility] Recurring Patient Attender: DELMY RAMIREZ MDReferrer: BRUCE LUTHER MD 11/12/2019 02:02:23 PM EDT [facility] Outpatient Attender: BRUCE CONTRERAS MD [place] [facility] 11:15:00 AM EDT [facility] ([facility] Outpatient Attender: DELMY RAMIREZ MDReferrer: BRUCE TAYLOR MD 09/03/2019 04:39:10 PM EDT [facility] Outpatient Attender: BRUCE [place] [facility] 11:00:00 AM EDT [facility] ([facility] Outpatient Attender: DELMY RAMIREZ MDReferrer: BRUCE TAYLOR MD 08/11/2019 12:46:34 PM EST [facility] Outpatient Attender: DELMY RAMIREZ MDReferrer: BRUCE TAYLOR MD 08/07/2019 08:25:22 AM EST [facility] Recurring Patient Attender: DELMY RAMIREZ MDReferrer: BRUCE LUTHER MD 08/06/2019 10:27:26 AM EST [facility] Outpatient Attender: DELMY RAMIREZ MDReferrer: BRUCE TAYLOR MD 07/14/2019 08:40:38 AM EST [facility] Recurring Patient Attender: DELMY RAMIREZ MDReferrer: BRUCE LUTHER MD 07/09/2019 09:07:11 AM EST [facility] Outpatient Referrer: Rudolph Guallpa DPM 06/10/2019 01:59: 00 PM EST [facility] Outpatient Referrer: Rudolph uGallpa DPM 06/06/2019 01:26: 00 PM EST [facility] Outpatient Referrer: Rudolph Guallpa DPM 06/06/2019 01:18: 00 PM EST [facility] Outpatient Referrer: Rudolph Guallpa DPM 06/06/2019 12:08: 00 PM EST [facility] Outpatient Referrer: MARIANA GROVES MD 06/06/2019 12:04:00 P M EST [facility] Outpatient Attender: DELMY RAMIREZ MDReferrer: BRUCE TAYLOR MD 05/01/2019 05:26:48 PM EST [facility] Immunizations Vaccine Date Status Description Data Source(s) Tdap 03/24/2020 12:06:00 PM EDT completed M [facility] ([facility] New in 2012. IIV4 03/02/2020 11:23:00 AM EDT completed [facility] ([facility] Medications Medication Brand Name Start Date Product Form Dose Route Admi nistrative Instructions Pharmacy Instructions Status Indications Reaction Description Data Source(s) Naproxen sodium 550 MG Oral Tablet Naproxen Sodium 2020 12:00 :00 AM EST ORAL active [facility] Levofloxacin 500 MG Oral Tablet Levofloxacin 03/26/2020 12:00:00 AM E DT ORAL completed [facility] ([facility] tapentadol 50 MG Oral Tablet [Nucynta] Nucynta 03/26/2020 12:00:00 AM EDT ORAL completed [facility] ([facility] Injection (SC)/(Im) 03/24/2020 12:00:00 AM EDT completed [facility] ([facility] Medication administered onsite Cephalexin 500 MG Oral Capsule [Keflex] Keflex 03/24/2020 12:00:0 0 AM EDT ORAL completed [facility] ([facility] silver sulfadiazine 10 MG/ML Topical Cream [Silvadene] Leung dene 03/24/2020 12:00:00 AM EDT active M [facility] ([facility] Geritol Complete 01/15/2020 12:00:00 AM EDT ORAL a ctive [facility] ([facility] Levothyroxine Sodium 0.125 MG Oral Tablet Levothyroxine Sodi um 07/28/2019 12:00:00 AM EST active M [facility] ([facility] Insurance Providers Payer name Policy type / Coverage type Policy ID Covered constitution party ID Covered constitution party's relationship to candelaria Policy Candelaria Plan Information [facility] [id number] [facility] [id number] [facility] [id number] [facility] EMPIRE PLAN [id number] 01 [id number] EMPIRE ([facility]) O [id number] S [id number] [place] Plan F [id number] SPOUSE [id number] [facility] O [id number] S [id number] [place] Plan F [id number] SPOUSE [id number] UMR [facility] CARE [id number] SP [id number] R [facility] CARE [id number] SP [id number] [facility] [id number] [id number] BCBS [place]IRE [place] DIV [id number] HU2 [id number] ANSI-Commercial [id number] [facility] [place] Plan Health Maintenance Organization (HMO) [id number] Family Dependent [id number] [facility] [place] Plan Health Maintenance Organization (HMO) [id number] Family Dependent [id number] MANAGED PHYSICAL NETWORK -RCR [id number] 01 [id number] BLUE CROSS BLUE SHIELD -RECURRING [id number] 01 [id number] [facility] [id number] 01 [id number] EMPIRE BLUE CROSS BLUE SHIELD -O/P [id number] 19 [id number] EMPIRE BLUE CROSS BLUE SHIELD -O/P [id number] 19 [id number] O UNAVAILABLE UNAVAILA BLE State Ins [facility] () Workers Compensation [id number] Self [id number] [facility] Ins [facility] () Workers Compensation [id number] Self [id number] [place] [facility] Medigap Part B [id number] Self [id number] State Insurance Fund Workers Compensation [id number] Self [id number] [facility] Ins [facility] () Workers Compensation [id number] Self [id number] Special Funds-Dew () Workers Compensation [id number] Self [id number] [place] [employer] Workers Compensation [id number] Family Depen dent [id number] [place] [employer] [facility] Medigap Part B [id number] Self [id number] [place] [facility] Health Maintenance Organization (HMO) [id number] Family Dependent [id number] E[place]IRE ([facility] O [id number] P [id number] [employer] [facility] [place] Health Maintenance Organization (HMO) Family Dependent [employer] [facility] [place] Health Maintenance Organization (HMO) Family Dependent STATE INSURANCE FUND [id number] SP [id number] UNITED HEALTHCARE O [id number] S [id number] State Insurance Fund Workers Compensation Self State Ins Fund () Workers Compensation Self Special Funds-Dew (WC) Workers Compensation Self [facility]/[place] Health Maintenance Organization (HMO) Family Dependent [employer] [place] Commercial Family Depende nt [facility] [id number] SP [id number] BCBS [facility] DIV [id number] SP [id number] OTHER WORKERS COMPENSATION [id number] SP [id number] WORKER'S COMP [id number] Emp [id number] UNITED HEALTHCARE [id number] SP [id number] Surgeries/Procedures Procedure Description Date Indications Data Source(s) Injection (SC)/(Im) 03/24/2020 12:00:00 AM EDT [facility] ([facility] Electrocardiogram Complete 01/15/2020 12:00:00 AM EDT [facility] ([facility] Electrocardiogram Complete 01/15/2020 12:00:00 AM EDT [facility] ([facility] Results ID Date Data Source [id number] 06/23/2020 12:48:43 PM EST [facility] Sabrina AngelDOB: 1960Provider: Dat [...] [facility], complaining of left knee pain. History: This is a visit under her private insurance. She is accompanied by her . She is dressed head to toe in a [place] outfit, green and red with white stockings [...] rce(s) Supporting Document(s) ID Date Data Source [id number] 06/23/2020 12:48:41 PM EST [facility]: Sabrina AngelDOB: 1960Provider: Roney [...] run, hop, skip or jump. She takes dufd-prl-xryluip medications, which don't seem to help. She uses Voltaren Gel. She typed a summary of her present level of function, sort of a xyum-zp-pjes perspective, from her standpoint, of her continuing [...] 20 lbs. May need parking accomodations. Sabrina SanchezLuca is ret ireglen. Patient has reached Maximum Medical Improvement (MMI) at this time. Patient may still require treatment for this injury in the future if there is a change in condition. Shows a 50% loss of use of the right knee which is prominent based on [place] Workmen's Compensation guidelines Signatures Electronically signed by : Marisa Zavala, ; Jun 16 2020 12:42PM EST Electronically signed by : Delmy Ramirez M.D.; Jun 23 2020 12:48PM EST Name Value Range Interpretation Code Description Data Garima rce(s) Supporting Document(s) ID Date Data Source [id number] 05/28/2020 12:00:00 AM EST [facility] Bruce Contreras MD Patient Name:FATEMEH ANGEL [facility] Date of : 1960[place] [address] Date of Exam: 05/28/2020PH#: Fax: [phone] EXAM: [...] or dislocation. Moderate arthritic changes as above.SUMAYA Tnoey/Amando you for referring SABRINA TAYLORLILIANA to our office. Electronically Signed - SEAN TONY MD 05/28/20 16:38 Name Value Range Interpretation Code Description Data Garima rce(s) Supporting Document(s) ID Date Data Source [id number] 05/27/2020 12:00:00 AM EST [facility] Bruce Contreras MD Patient Name:FATEMEH ANGEL [facility] [address] Date of : 1960[place] [address] Date of Exam: 05/27/2020#: Fax: [phone] EXAM: [...] rce(s) Supporting Document(s) ID Date Data Source [id number] 05/13/2020 12:00:00 PM EST [facility] Name Value Range Interpretation Code Description Data Garima rce(s) Supporting Document(s) SARS coronavirus 2 RNA [facility] This lab was ordered by [facility] and reported by [facility]. ID Date Data Source [id number] 04/02/2020 11:10:15 AM EDT [facility]: Sabrina AngelDOB: 1960Provider: Dat Ramirez: 03/31/2020 Reason For VisitElilinus Angel is an established patient here for follow up. Miriam DOI: 10/05/11. Surgery DOS: 03/27/14. Surgery Description: Right total knee GOERGIANA. Patient is retired. AssessmentChief Complaint: Sabrina is [...] rce(s) Supporting Document(s) ID Date Data Source [id number] 03/31/2020 02:56:16 PM EDT [facility]: Sabrina AngelDOB: 1960Provider: Dat [...] rce(s) Supporting Document(s) ID Date Data Source [id number] 03/24/2020 12:04:00 PM EDT [facility] ([facility] Name Value Range Interpretation Code Description Data Garima rce(s) Supporting Document(s) Bacteria identified in Unspecified specimen by Aerobe culture Laboratory test result MEDENT ([facility]) SRC:LEFT LEG WOUND Bacteria identified in Unspecified specimen by Culture Laborator y test result MEDENT ([facility] Del Angel ) SRC:LEFT LEG WOUND ID Date Data Source [id number] 03/12/2020 05:19:27 PM EDT [facility]: Sabrina AngelDOB: 1960Provider: Delmy [...] was, in some part, due to the ruby software developer's opinion that my notes were inconsistent or [...] rce(s) Supporting Document(s) ID Date Data Source [id number] 02/24/2020 01:18:00 PM EDT [facility] ([facility] Name Value Range Interpretation Code Description Data Garima rce(s) Supporting Document(s) Glu 98 mg/dL 70-110 [facility] ([facility] CHRONIC KIDNEY [...] BUN 13 mg/dL 8-23 [facility] ([facility] CHRONIC KIDNEY DISEASE STAGING PER [...] Creat 0.7 mg/dL 0.5-1.0 [facility] ([facility] CHRONIC KIDNEY DISEASE STAGING PER [...] mL/min Normal BUN/Creatinine Ratio 17.5 CALC MEDENT ([facility] CHRONIC KIDNEY DISEASE STAGING [...] mL/min Normal Na 140 mmol/L 136-145 [facility] ([facility] CHRONIC KIDNEY DISEASE STAGING PER [...] mL/min Normal CL 106.6 mmol/L 98.0-107.0 [facility] ([facility] Nusrat soni [facility] CHRONIC KIDNEY [...] mL/min Normal Co2 23.7 mmol/L 22.0-29.0 [facility] ([facility]a [facility]well [facility] CHRONIC KIDNEY [...] mL/min Normal K 4.5 mmol/L 3.5-5.1 [facility] ([facility] Gulshan [facility]encer [facility] CHRONIC KIDNEY [...] mL/min Normal Alb 4.3 g/dL 3.4-4.8 [facility] ([facility] CHRONIC KIDNEY [...] mL/min Normal CA 9.0 mg/dL 8.6-10.2 [facility] ([facility] CHRONIC KIDNEY [...] mL/min Normal A/G Ratio 2.2 CALC [facility] ([facility] CHRONIC KIDNEY [...] and above >32 mL/min Normal eGFR Non-Afr. Ukrainian 94 # DANIELLE ([facility] CHRONIC KIDNEY DISEASE STAGING PER [...] >32 mL/min Normal ID Date Data Source [id number] 02/24/2020 01:18:00 PM EDT D[facility]ELLE ([facility] Name Value Range Interpretation Code Description Data Garima rce(s) Supporting Document(s) Thyrotropin [Units/volume] in Serum or Plasma 4.500 ulU/mL 0.60-4.8 DANIELLE ([facility] ID Date Data Source [id number] 02/04/2020 12:00:00 AM EDT [facility] Delmy Ramirez MD Patient Name:GEMA ANGELTH[facility] Date of : 1960uite 1b Date of Exam: 02/04/2020JOSE Cardona [id number]#: Fax: [phone] EXAM: US LEFT EXTREMITY VEINS, [...] magnetic resonancevenography can be obtained.Accredited by the [employer] in Vascular PeripheralUltrasound.PAT Marc/Amando you for referring SABIRNA ANGEL to our office. Electronically Signed - WIBLUR GAN DO 02/04/20 15:05 Name Value Range Interpretation Code Description Data Garima rce(s) Supporting Document(s) ID Date Data Source [id number] 02/06/2020 11:21:11 AM EDT [facility]: Sabrina AngelDOB: 1960Provider: Jeffery [...] (SOS) - General Treatment Treatment Status: Complete Done:[id number] Ordered;For: Joint pain, knee, Left knee pain; Ordered By: Ana Garcia Performed: Order Comments: s/p lateral meniscectomy dos 01/27/2020 Due: [id number]; Last Updated By: Kassidy La; 02/03/2020 3:52:03 PMDuration: : Four WeeksPT Frequency : Twice a weekLaterality and Body Part : left knee Venous Doppler (SOS) Referral Treatment Treatment Status: Complete Done:[id number] Ordered;For: Calf pain, Swelling of calf; Ordered By: Ana Garcia Performed: Due: [id number]; Last Updated By: Kassidy La; 02/03/2020 3:51:14 PMRule out deep vein thrombosis : YesExtremity : Lower ExtremityLaterality: : Left Plan, Assessment and Recommendation(s) Schedule appointment: in 4-6 weeks. The nature of the diagnosis and various treatment alternatives were discussed today, including invasive, operative, and non-operative options. DisclaimersThis document was dictated and electronically signed using [employer] Speaking software. A reasonable attempt at proof reading has been made to minimize errors. Please call with any questions. Signatures Electronically signed by : Ana Garcia PA-C; Feb 03 2020 3:55PM EST (Author) Electronically signed by : Delmy Ramirez M.D.; Feb 06 2020 11:21AM EST Name Value Range Interpretation Code Description Data Garima rce(s) Supporting Document(s) ID Date Data Source [id number] 01/22/2020 02:14:00 AM EDT [facility] Name Value Range Interpretation Code Description Data Garima rce(s) Supporting Document(s) SARS coronavirus 2 PCR [facility] This lab was ordered by [facility] and reported by [employer] broadband [employer]. ID Date Data Source [id number] 11/19/2019 12:03:29 PM EDT [facility], PCName: Sabrina Sanchez-WardDOB: 1960Provider: Dta Ramirez: 11/12/2019 AssessmentChief Complaint: Sabrina is in today for a followup check for her left knee.History: She is status post right total knee replacement by me in the past. It has functioned reasonably well. She has some chronic low back pain, but increasing pain and soreness in the left knee has been problematic. She has collapse of the midfoot and she sees a director child for this in the [place] area and apparently they are considering doing some kind of tendon transfer to help control this. She wears a Swede-O support sleeve on both ankles. She is in today accompanied by her for evaluation. 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 She recalls that they were playing [...] knee; NINFA = N; Verified Transmission to [facility]; Msg to Pharmacy: Reference #:[id number]; Last Updated By: Sridevi Saucedo; 11/12/2019 3:40:34 PM X-Ray I Knee - 3 views (XRays were ordered, obtained and interpreted today in theoffice. Indication: pain/dysfunction.); Status:Complete; Done: 12Nov2019 Perform:SOS29; Due:[id number]; Last Updated By:Ana Holland; 11/12/2019 2:44:15 PM;Ordered; For:Left knee pain; Ordered By:Delmy Ramirez;Weight Bearing Status : Weight bearingLaterality: : Left Signatures Electronically signed by : Lacey Wilcox, ; Nov 13 2019 9:30AM EST Electronically signed by : Delmy Ramirez M.D.; Nov 19 2019 12:03PM EST Name Value Range Interpretation Code Description Data Garima rce(s) Supporting Document(s) ID Date Data Source [id number] 09/23/2019 03:38:35 PM EDT [facility] PCName: Sabrina Sanchez-WardDOB: 1960Provider: Roney [...] meniscus tear. There is some areas of [id number] in the medial and patellofemoral compartments of [...] rce(s) Supporting Document(s) ID Date Data Source [id number] 08/25/2019 10:05:00 AM EDT [facility] PATIENT MR#: [id number] NAME: Sabrina Bar ADATE OF : 1960REFERRING PHYSICIAN: Delmy RamirezEXVESNA DATE: 08/22/2019EXAM: MRI left KneeINDICATION: Primary osteoarthritis of one knee. Injury to left knee whenstepping down off a curb with right foot 07/03/2019. [place] and heard a snap inleft knee.COMPARISON: Left [...] rce(s) Supporting Document(s) ID Date Data Source [id number] 08/15/2019 09:25:00 AM EST [facility] ([facility] Name Value Range Interpretation Code Description Data Garima rce(s) Supporting Document(s) Thyrotropin [Units/volume] in Serum or Plasma 2.657 ulU/mL 0.60-4.8 [facility] ([facility] ID Date Data Source [id number] 08/15/2019 09:25:00 AM EST [facility] ([facility] Name Value Range Interpretation [...] Serum or Plasma 65 mg/dL 45-6 5 [facility] ([facility] CLASSIFICATION CHOLESTEROL FO [...] mL/min Normal Cho/HDL Ratio 2.3 CALC [facility] ([facility] CLASSIFICATION CHOLESTEROL FO R ADULTS [...] >32 mL/min Normal ID Date Data Source [id number] 08/15/2019 09:25:00 AM EST [facility] ([facility] Name Value Range Interpretation Code Description Data Garima rce(s) Supporting Document(s) Glu 94 mg/dL 70-110 [facility] ([facility] CLASSIFICATION CHOLESTEROL FO R ADULTS [...] mL/min Normal BUN/Creatinine Ratio 19.0 Calc [facility] ([facility] CLASSIFICATION CHOLESTEROL FO R [...] >32 mL/min Normal BUN 15 mg/dL 01-31 [facility] ([facility] CLASSIFICATION CHOLESTEROL [...] mL/min Normal CL 106.3 mmol/L 98.0-107.0 [facility] ([facility] CLASSIFICATION CHOLESTEROL FO R ADULTS [...] mL/min Normal Co2 23.7 mmol/L 22.0-29.0 [facility] ([facility] CLASSIFICATION CHOLESTEROL FO R ADULTS [...] mL/min Normal Alb 4.3 g/dL 3.4-4.8 [facility] CLASSIFICATION CHOLESTEROL FO [...] >32 mL/min Normal Globulin 2.2 Calc [facility] ([facility] CLASSIFICATION CHOLESTEROL [...] Alt (SGPT) 22 U/L 0-41 [facility] ([facility] CLASSIFICATION CHOLESTEROL FO [...] mL/min Normal Alp 87.6 U/L 35-129 [facility] CLASSIFICATION CHOLESTEROL FO [...] and above >32 mL/min Normal eGFR Non-Afr. Ukrainian 80 # [facility] ([facility] [...] >32 mL/min Normal ID Date Data Source [id number] 08/11/2019 12:46:34 PM EST [facility] PCName: Sabrina Sanchez-WardDOB: 1960Provider: Dat [...] rce(s) Supporting Document(s) ID Date Data Source [id number] 08/07/2019 08:25:22 AM EST [facility] PCName: Sabrina Sanchez-WardDOB: 1960Provider: Dat [...] 20 lbs. May need parking accomodations. [facility] Signatures Electronically signed by : Laura Hwang, ; Aug 07 2019 7:53AM EST Electronically signed by : Delmy Ramirez M.D.; Aug 07 2019 8:25AM EST Name Value Range Interpretation Code Description Data Garima e(s) Supporting Document(s) ID Date Data Source [id number] 07/14/2019 08:40:38 AM EST [facility] PCName: Sabrina AngelDOB: 1960Provider: Dat Ramirez: 07/09/2019 AssessmentSabrina Segovia twisted her knee and fell last , was seen in the emergency room of [facility], where x-rays of her knee revealed her [...] reviewed the report from her x-rays at [facility], which show no fracture and are consistent [...] rce(s) Supporting Document(s) ID Date Data Source [id number] 06/10/2019 12:00:00 AM EST [facility] Rudolph Guallpa DPM Patient Name:SABRINA [id number] Date of : 1960[place] [address] Date of Exam: 06/10/2019PH#: Fax: [phone] EXAM: [...] Other findings as described above.Accredited by the [employer] in MR.PAT Marc/jmcTnapole[place] you for referring SABRINA ANGEL to our office. Electronically Signed - WILBUR GAN DO 06/12/19 16:22 Name Value Range Interpretation Code Description Data Garima rce(s) Supporting Document(s) ID Date Data Source [id number] 05/14/2019 12:36:15 PM EST [facility] PCName: Sabrina AngelDOB: 1960Provider: Dat [...] Pulse oximetry 96 % 96 % [facility] ([facility] Body mass index (BMI) [Ratio] 41.3 kg/m2 41.3 k g/m2 [facility] ([facility] [place] body weight 125 [lb_av] 125 [lb_av] [facility] T ([facility] Body weight 248.00 [lb_av] 248.00 [lb_av] [facility] T ([facility] Body height 65 [in_i] 65 [in_i] [facility] ([facility] 5'5" Respiratory rate 16 /min 16 /min [facility] ( [facility] Heart rate 50 /min 50 /min [facility] ([facility] Body temperature 98.0 [degF] 98.0 [degF] [facility] ([facility] Diastolic blood pressure 68 mm[Hg] 68 mm[Hg] [facility] ([facility] Systolic blood pressure 108 mm[Hg] 108 mm[Hg] M EDENT ([facility] Oxygen saturation in Arterial blood by Pulse oximetry 96 % 96 % [facility] ([facility] [place] body weight 125 [lb_av] 125 [lb_av] MEDEN [...] k g/m2 [facility] ([facility] [place] body weight 125 [lb_av] 125 [lb_av] MED[facility] [...] k g/m2 [facility] ([facility] [place] body weight 125 [lb_av] 125 [lb_av] [facility] T ([facility] Body weight 245.00 [lb_av] 245.00 [lb_av] [facility] T ([facility] Body height 65 [in_i] 65 [in_i] [facility] ([facility] 5'5" Respiratory rate 18 [...] Pulse oximetry 98 % 98 % [facility] ([facility] Body mass index (BMI) [Ratio] 41.9 kg/m2 41.9 k g/m2 [facility] ([facility] [place] body weight 125 [lb_av] 125 [lb_av] [facility] T ([facility] Body weight 252.00 [lb_av] 252.00 [lb_av] MED[facility] T ([facility] Body height 65 [in_i] 65 [in_i] [facility] ([facility] 5'5" Respiratory rate 16 [...] [Ratio] 41.9 kg/m2 41.9 k g/m2 [facility] ([facility]) Body weight 252.00 [lb_av] 252.00 [lb_av] [facility] T ([facility] ) Body height 65 [in_i] 65 [in_i] [facility] ([facility] ) 5'5" Oxygen saturation in Arterial blood by Pulse oximetry 99 % 99 % [facility] ([facility] Body mass index (BMI) [Ratio] 41.3 kg/m2 41.3 k g/m2 [facility] ([facility] [place] body weight 125 [lb_av] 125 [lb_av] [facility] T ([facility] Body weight 248.00 [lb_av] 248.00 [lb_av] [facility] T ([facility] Body height 65 [in_i] 65 [in_i] [facility] ([facility] 5'5" Respiratory rate 18 [...] Body height 65 [in_i] 65 [in_i] [facility] ([facility] 5'5" Respiratory rate 14 /min 14 /min [facility] ( [facility] Heart rate 80 /min 80 /min [facility] ([facility] Body temperature 97.5 [degF] 97.5 [degF] [facility] ([facility] Diastolic blood pressure 84 mm[Hg] 84 mm[Hg] DANIELLE ([facility] Systolic blood pressure 134 mm[Hg] 134 mm[Hg] Radhames HERNANDEZ ([facility] Oxygen saturation in Arterial blood by Pulse oximetry 98 % 98 % DANIELLE ([facility] Body mass index (BMI) [Ratio] 41.3 kg/m2 41.3 k g/m2 [facility] ([facility] Body weight 248.00 [lb_av] 248.00 [lb_av] MEDEN T ([facility] Body height 65 [in_i] 65 [in_i] [facility] ([facility] 5'5" Respiratory rate 18 /min 18 /min [facility] ( [facility] Heart rate 70 /min 70 /min MEDDARLENE ([facility] Body temperature 97.8 [degF] 97.8 [degF] [facility] ([facility] Diastolic blood pressure 88 mm[Hg] 88 mm[Hg] DANIELLE ([facility] Systolic blood pressure 136 mm[Hg] 136 mm[Hg] Radhames HERNANDEZ ([facility]
--- NOTE | 2020-06-25 17:25 | HPEPDOC ---
General Date of Admission 06/25/20 Date of Service: Jun 25, 2020 Chief Complaint The patient is a 60-year-old female admitted with a reason for visit of Palpitations. Source: Patient Exam Limitations: No limitations Timing/Duration: 24 hours Severity: Moderate History of Present Illness Patient is 60 years old female with past medical history of morbid obesity, asthma, hypothyroidism presented hospital with palpitations. Patient stated that around 12 noon time he has been having palpitation. She stated that she had palpitations for many years but she was never diagnosed with atrial fibrillation. Patient denies any chest pain, any shortness of breath but she stated that she has lightheadedness. In ER patient was found to have atrial fibrillation on EKG with rapid ventricular rate of 140. Patient received the dose of Lopressor and metoprolol 25 mg by mouth without effect. Labs pertinent for no leukocytosis. Patient does not have any fever, diarrhea or dysuria Home Medications Scheduled Fluticasone/Vilanterol (Breo Ellipta 200-25 Mcg INH) 1 Each Blst.w.dev, 1 PUFF PO DAILY, (Reported) Levothyroxine Sodium (Levothyroxine Sodium) 112 Mcg Tablet, 112 MCG PO DAILY, (Reported) Allergies Coded Allergies: Latex, Natural Rubber (Verified Allergy, Intermediate, rash, 05/17/20) clarithromycin (Verified Allergy, Intermediate, burning mouth, 05/17/20) Opioids - Morphine Analogues (Verified Allergy, Unknown, "pt able to take nucynta", 05/17/20) Opioids-Meperidine and Related (Verified Allergy, Unknown, "pt able to take nucynta", 05/17/20) Past Medical History Medical History morbid obesity, asthma, hypothyroidism Family History Mother from cancer, father had stroke and heart attack Social History * Smoker: Denies Alcohol: Denies Drugs: denies A-FIB/CHADSVASC A-FIB History Current/History of A-Fib/PAF?: Yes Current PO Anticoag Therapy: No Review of Systems Constitutional: Denies: Chills, Fever Eyes: Denies: Pain ENT: Denies: Head Aches Skin: Denies: Rash, Lesions Pulmonary: Denies: Dyspnea Cardiovascular: Reports: Palpitations; Denies: Chest Pain Gastrointestinal: Denies: Nausea, Vomiting Genitourinary: Denies: Dysuria Hematologic: Denies: Bruising Endocrine: Denies: Polydipsia Musculoskeletal: Denies: Neck Pain Neurological: Denies: Weakness Psych: Reports: Mood Normal Physical Examination General Exam: Positive: Alert, Cooperative Eye Exam: Positive: PERRLA ENT Exam: Positive: Atraumatic Neck Exam: Positive: Supple; Negative: JVD Heart Exam: Positive: Irregular Rhythm Telemetry: Positive: Atrial fibrillation Abdomen Exam: Positive: Normal bowel sounds Extremity Exam: Negative: Clubbing Skin Exam: Positive: Nl turgor and temperature Neuro Exam: Positive: Normal Gait Psych Exam: Positive: Mental status NL Vital Signs Vital Signs Date Time Temp Pulse Resp B/P (MAP) Pulse Ox O2 Delivery O2 Flow Rate FiO2 06/25/20 17:10 162 123/64 06/25/20 16:52 98 06/25/20 15:08 98.6 18 Room Air Laboratory Data Labs 24H Laboratory Tests 2 06/25/20 15:50: Immature Granulocyte % (Auto) 0.2, Neutrophils (%) (Auto) 57.8, Lymphocytes (%) (Auto) 26.3, Monocytes (%) (Auto) 11.6H, Eosinophils (%) (Auto) 3.7H, Basophils (%) (Auto) 0.4, Neutrophils # (Auto) 3.0, Lymphocytes # (Auto) 1.3L, Monocytes # (Auto) 0.6, Eosinophils # (Auto) 0.2, Basophils # (Auto) 0.0, Nucleated Red Blood Cells % (auto) 0.0, Prothrombin Time 13.1, Prothromb Time International Ratio 0.97, Blood Gas Bicarbonate Standard 22.1, Venous Blood pH 7.336, Venous Blood Partial Pressure CO2 46.6, Venous Blood Partial Pressure O2 34.2, Venous Blood Total Carbon Dioxide 25.8, Venous Blood HCO3 24.4, Venous Blood Oxygen Saturation 62.6, Venous Blood Base Excess -1.8, Anion Gap 5L, Glomerular Filtration Rate > 60.0, Calcium Level 8.8, Total Bilirubin 0.7, Direct Bilirubin 0.2, Aspartate Amino Transf (AST/SGOT) 20, Alanine Aminotransferase (ALT/SGPT) 36, Alkaline Phosphatase 79, Total Creatine Kinase 77, Creatine Kinase MB < 1.0, Creatine Kinase MB Relative Index 1.30, Troponin I < 0.02, Total Protein 6.6, Albumin 3.6, Albumin/Globulin Ratio 1.2, Lipase 118 CBC/BMP Laboratory Tests 06/25/20 15:50 Assessment/Plan Patient is 60 years old female with past medical history of morbid obesity, asthma, hypothyroidism presented hospital with palpitations. Patient stated that around 12 noon time he has been having palpitation. She stated that she had pal pitations for many years but she was never diagnosed with atrial fibrillation. Patient denies any chest pain, any shortness of breath but she stated that she has lightheadedness. In ER patient was found to have atrial fibrillation on EKG with rapid ventricular rate of 140. Patient received the dose of Lopressor and metoprolol 25 mg by mouth without effect. Labs pertinent for no leukocytosis. Patient does not have any fever, diarrhea or dysuria Problems (1) Atrial fibrillation with RVR Status: Acute Problem Text: Diltiazem drip Xarelto We'll check TSH and T4 Echo ordered Troponin (2) Hypothyroidism Problem Text: Continue with levothyroxine Will check thyroid profile (3) Asthma Status: Chronic Problem Text: Not in acute exacerbation Plan / VTE VTE Prophylaxis Ordered?: Yes MUNA DELGADO DO Jun 25, 2020 17:25
--- OUTSIDE RECORDS SUMMARY | 2020-06-25 17:52 | CCD ---
Author Author [facility] Organization [facility] Address Unknown Phone Unavailable Care Team Providers Care Pastry Supervisor Name Role Phone Josué CONTRERAS MD Unavailable [...] D Steve PA Unavailable Unavailable Edwina, D Steev PA Unavailable Unavailable Edwina, D Steve PA [...] Unavailable LORRAINE, H BRUCE MD Unavailable Unavailable Braggadocio, A Ana PA Unavailable Unavailable Braggadocio, A Ana PA Unavailable Unavailable Braggadocio, A Ana PA Unavailable Unavailable Braggadocio, A Ana PA Unavailable Unavailable Braggadocio, A Ana PA Unavailable Unavailable Radha, A Ana PA Unavailable Unavailable Radha, A Ana PA Unavailable Unavailable Radha, A Ana PA Unavailable Unavailable Radha, A Ana PA Unavailable Unavailable Radha, A Ana PA Unavailable Unavailable Braggadocio, A Ana PA Unavailable Unavailable Radha, A Ana PA Unavailable Unavailable Radha, A Ana PA Unavailable Unavailable Braggadocio, A Ana PA Unavailable Unavailable Radha, A Ana PA Unavailable Unavailable Braggadocio, A Ana PA Unavailable Unavailable Radha, A Ana PA Unavailable Unavailable Radha, A Ana PA Unavailable Unavailable Braggadocio, A Ana PA Unavailable Unavailable Radha, A Ana PA Unavailable Unavailable Radha, A Ana PA Unavailable Unavailable Radha, A Ana PA Unavailable Unavailable Braggadocio, A Ana PA Unavailable Unavailable Radha, A Ana PA Unavailable Unavailable Braggadocio, A Ana PA Unavailable Unavailable Braggadocio, A Ana PA Unavailable Unavailable Braggadocio, A Ana PA Unavailable Unavailable Radha, A Ana PA Unavailable Unavailable Radha, A Ana PA Unavailable Unavailable Radha, A Ana PA Unavailable Unavailable MOYER, M SHIV MEDICAL RECORD LIBRARIANS TEACHER Unavailable Unavailable MOYER, M SHIV MEDICAL RECORD LIBRARIANS TEACHER Unavailable Unavailable MOYER, M SHIV MEDICAL RECORD LIBRARIANS TEACHER Unavailable Unavailable MOYER, M SHIV MEDICAL RECORD LIBRARIANS TEACHER Unavailable Unavailable MOYER, M SHIV MEDICAL RECORD LIBRARIANS TEACHER Unavailable Unavailable MOYER, M SHIV MEDICAL RECORD LIBRARIANS TEACHER Unavailable Unavailable MOYER, M SHIV MEDICAL RECORD LIBRARIANS TEACHER Unavailable Unavailable MOYER, M SHIV MEDICAL RECORD LIBRARIANS TEACHER Unavailable Unavailable MOYER, M SHIV MEDICAL RECORD LIBRARIANS TEACHER Unavailable Unavailable MOYER, M SHIV MEDICAL RECORD LIBRARIANS TEACHER Unavailable Unavailable MOYER, M SHIV MEDICAL RECORD LIBRARIANS TEACHER Unavailable Unavailable MOYER, M SHIV MEDICAL RECORD LIBRARIANS TEACHER Unavailable Unavailable MOYER, M SHIV MEDICAL RECORD LIBRARIANS TEACHER Unavailable Unavailable MOYER, M SHIV MEDICAL RECORD LIBRARIANS TEACHER Unavailable Unavailable MOYER, M SHIV MEDICAL RECORD LIBRARIANS TEACHER Unavailable Unavailable MOYER, M SHIV MEDICAL RECORD LIBRARIANS TEACHER Unavailable Unavailable MOYER, M SHIV MEDICAL RECORD LIBRARIANS TEACHER Unavailable Unavailable MOYER, M SHIV MEDICAL RECORD LIBRARIANS TEACHER Unavailable Unavailable MOYER, M SHIV MEDICAL RECORD LIBRARIANS TEACHER Unavailable Unavailable MOYER, M SHIV MEDICAL RECORD LIBRARIANS TEACHER Unavailable Unavailable MOYER, M SHIV MEDICAL RECORD LIBRARIANS TEACHER Unavailable Unavailable MOYER, M SHIV MEDICAL RECORD LIBRARIANS TEACHER Unavailable Unavailable MOYER, M SHIV MEDICAL RECORD LIBRARIANS TEACHER Unavailable Unavailable MOYER, M SHIV MEDICAL RECORD LIBRARIANS TEACHER Unavailable Unavailable MOYER, M SHIV MEDICAL RECORD LIBRARIANS TEACHER Unavailable Unavailable MOYER, M SHIV MEDICAL RECORD LIBRARIANS TEACHER Unavailable Unavailable MOYER, M SHIV MEDICAL RECORD LIBRARIANS TEACHER Unavailable Unavailable MOYER, M SHIV MEDICAL RECORD LIBRARIANS TEACHER Unavailable Unavailable MOYER, M SHIV MEDICAL RECORD LIBRARIANS TEACHER Unavailable Unavailable MOYER, M SHIV MEDICAL RECORD LIBRARIANS TEACHER Unavailable Unavailable MOYER, M SHIV MEDICAL RECORD LIBRARIANS TEACHER Unavailable Unavailable MOYER, M SHIV MEDICAL RECORD LIBRARIANS TEACHER Unavailable Unavailable MOYER, M SHIV MEDICAL RECORD LIBRARIANS TEACHER Unavailable Unavailable MOYER, M SHIV MEDICAL RECORD LIBRARIANS TEACHER Unavailable Unavailable MOYER, M SHIV MEDICAL RECORD LIBRARIANS TEACHER Unavailable Unavailable MOYER, M SHIV MEDICAL RECORD LIBRARIANS TEACHER Unavailable Unavailable MOYER, M SHIV MEDICAL RECORD LIBRARIANS TEACHER Unavailable Unavailable MOYER, M SHIV MEDICAL RECORD LIBRARIANS TEACHER Unavailable Unavailable MOYER, M SHIV MEDICAL RECORD LIBRARIANS TEACHER Unavailable Unavailable MOYER, M SHIV MEDICAL RECORD LIBRARIANS TEACHER Unavailable Unavailable MOYER, M SHIV MEDICAL RECORD LIBRARIANS TEACHER Unavailable Unavailable MOYER, M SHIV MEDICAL RECORD LIBRARIANS TEACHER Unavailable Unavailable MOYER, M SHIV MEDICAL RECORD LIBRARIANS TEACHER Unavailable Unavailable MOYER, M SHIV MEDICAL RECORD LIBRARIANS TEACHER Unavailable Unavailable MOYER, M SHIV MEDICAL RECORD LIBRARIANS TEACHER Unavailable Unavailable MOYER, M SHIV MEDICAL RECORD LIBRARIANS TEACHER Unavailable Unavailable MOYER, M SHIV MEDICAL RECORD LIBRARIANS TEACHER Unavailable Unavailable MOYER, M SHIV MEDICAL RECORD LIBRARIANS TEACHER Unavailable Unavailable MOYER, M SHIV MEDICAL RECORD LIBRARIANS TEACHER Unavailable Unavailable MOYER, M SHIV MEDICAL RECORD LIBRARIANS TEACHER Unavailable Unavailable MOYER, M SHIV MEDICAL RECORD LIBRARIANS TEACHER Unavailable Unavailable MOYER, M SHIV MEDICAL RECORD LIBRARIANS TEACHER Unavailable Unavailable MOYER, M SHIV MEDICAL RECORD LIBRARIANS TEACHER Unavailable Unavailable MOYER M SHIV MEDICAL RECORD LIBRARIANS TEACHER Unavailable Unavailable MOYER M SHIV MEDICAL RECORD LIBRARIANS TEACHER Unavailable Unavailable MOYER M SHIV MEDICAL RECORD LIBRARIANS TEACHER Unavailable Unavailable MOYER M SHIV MEDICAL RECORD LIBRARIANS TEACHER Unavailable Unavailable MOYER, M SHIV MEDICAL RECORD LIBRARIANS TEACHER Unavailable Unavailable ISAAC DRIVER MD Unavailable Unavailable [...] Unavailable ISAAC DRIVER MD Unavailable Unavailable ISAAC DRVIER MD Unavailable Unavailable ISAAC DRIVER MD Unavailable [...] B DELMY MD Unavailable Unavailable GREENKY, B DELYM MD Unavailable Unavailable GREENKY, B DELMY MD [...] B DELMY MD Unavailable Unavailable GREENKY, B EDLMY MD Unavailable Unavailable GREENKY, B DELMY MD [...] Unavailable Ramu, Rudolph DPM Unavailable Unavailable Ramu, Rudloph DPM Unavailable Unavailable Ramu, Rudolph DPM Unavailable [...] is protected by Article 27-F of the [facility] Public Health law. If you continue you may have access to information: Regarding HIV / AIDS; Provided by facilities licensed or operated by the [facility] Office of Mental Health; or Provided by the [facility] Office for People With Developmental Disabilities. If such information is present, then the following [facility] mandated warning applies: This information has been [...] law may result in a fine or alf sentence or both. A general authorization for the release of medical or other information is NOT sufficient authorization for further disc losure. Allergies and Adverse Reactions Type Description Substance Reaction Status Data Source(s ) No Known Food Allergies No Known Food Allergies [facility] ENVIRONMENTAL BANDAIDS AND TAPE BANDAIDS AND TAPE [facility] Drug allergy ALL ORAL NARCOTICS ALL ORAL NARCOTICS ABD PAIN; ABD PAIN; VOMITING; VOMITING [facility] ENVIRONMENTAL seasonal seasonal [facility] BRANDNAME BIAXIN BIAXIN PEELING MUCOUS MEMBRANES [facility] Family History Family Member Name Family Member Gender Family Member Status Date o f Status Description Data Source(s) Unknown Unknown Problem [facility] ([facility]) Encounters Encounter Providers Location Date Indications Data Source(s ) Outpatient Attender: DELMY RAMIREZ MDReferrer: BRUCE TAYLOR MD 06/23/2020 12:48:43 PM EST [facility] Outpatient Attender: DELMY RAMIREZ MDReferrer: BRUCE TAYLOR MD 06/23/2020 12:48:41 PM EST [facility] Outpatient Attender: ALEX MCCLELLAN DPM PCConsultant: BRUCE CONTRERAS MD 06/08/2020 09:24:00 AM EST - 06/08/2020 09:24:00 AM EST [facility] Outpatient Attender: BRUCE CONTRERAS MD [facility] 08:30:00 AM EST [facility] ([facility] Unknown [address] [address] 04/28/2020 12:00:00 AM EST eCW1 (Critical access hospital) Outpatient Attender: DELMY RAMIREZ MDReferrer: BRUCE TAYLOR MD 04/02/2020 11:10:15 AM EDT [facility] Outpatient Attender: DELMY RAMIREZ MDReferrer: BRUCE TAYLOR MD 03/31/2020 02:56:16 PM EDT [facility] Outpatient Attender: Steve PHILIPPE [facility] [place] [facility] 10:40:00 AM EDT [facility] ([facility] Outpatient Attender: Steve PHILIPPE [place] [facility] 11:30:00 AM EDT [facility] ([facility] Outpatient Attender: DELMY RAMIREZ MDReferrer: BRUCE TAYLOR MD 03/12/2020 05:19:27 PM EDT [facility] Outpatient Attender: BRUCE CONTRERAS MD [place] [facility] 11:00:00 AM EDT [facility] ([facility] Outpatient Attender: Ana Garcia PAReferrer: BRUCE CONTRERAS MD 02/06/2020 11:21:11 AM EDT [facility] Recurring Patient Attender: DELMY RAMIREZ MDReferrer: BRUCE LUTHER MD 02/04/2020 11:29:15 AM EDT [facility] Out[facility] Attender: SHIV MOYER NP [place] [facility] 01/14 02:45:00 PM EDT [facility] ([facility] Outpatient Attender: BRUCE CONTRERAS MD [place] [facility] 03:40:00 PM EDT [facility] ([facility] Outpatient Attender: DELMY RAMIREZ MDReferrer: BRUCE TAYLOR MD 11/19/2019 12:03:29 PM EDT [facility] Recurring Patient Attender: DELMY RAMIREZ MDReferrer: BRUCE LUTHER MD 11/12/2019 02:02:23 PM EDT [facility] Outpatient Attender: BRUCE CONTRERAS MD [place] [facility] 11:15:00 AM EDT [facility] ([facility] Outpatient Attender: DELMY RAMIREZ MDReferrer: BRUCE TAYLOR MD 09/03/2019 04:39:10 PM EDT [facility] Outpatient Attender: BRUCE [place] [facility] 11:00:00 AM EDT MED[facility] ([facility] Outpatient Attender: DELMY RAMIREZ MDReferrer: BRUCE TAYLOR MD 08/11/2019 12:46:34 PM EST [facility] Outpatient Attender: DELMY RAMIREZ MDReferrer: BRUCE TAYLOR MD 08/07/2019 08:25:22 AM EST [facility] Recurring Patient Attender: DELMY RAMIREZ MDReferrer: BRUCE LUTHER MD 08/06/2019 10:27:26 AM EST [facility] Outpatient Attender: DELMY RAMIREZ MDReferrer: BRUCE TAYLOR MD 07/14/2019 08:40:38 AM EST [facility] Recurring Patient Attender: DELMY RAMIREZ MDReferrer: BRUCE LUTHER MD 07/09/2019 09:07:11 AM EST [facility] Outpatient Referrer: Rudolph Guallpa [...] BRUCE TAYLOR MD 05/01/2019 05:26:48 PM EST [facility] Immunizations Vaccine Date Status Description Data Source(s) Tdap 03/24/2020 12:06:00 PM EDT completed M EDENT ([facility] New in 2012. IIV4 03/02/2020 11:23:00 AM EDT completed [facility] ([facility] Medications Medication Brand Name Start Date Product Form Dose Route Admi nistrative Instructions Pharmacy Instructions Status Indications Reaction Description Data Source(s) Naproxen sodium 550 MG Oral Tablet Naproxen Sodium 2020 12:00 :00 AM EST ORAL active [facility] ([facility] Levofloxacin 500 MG Oral Tablet Levofloxacin 03/26/2020 12:00:00 AM E DT ORAL completed [facility] ([facility] tapentadol 50 MG Oral Tablet [Nucynta] Nucynta 03/26/2020 12:00:00 AM EDT ORAL completed [facility] ([facility] Injection (SC)/(Im) 03/24/2020 12:00:00 AM EDT completed [facility] ([facility] Medication administered onsite Cephalexin 500 MG Oral Capsule [Keflex] Keflex 03/24/2020 12:00:0 0 AM EDT ORAL completed [facility] ([facility] silver sulfadiazine 10 MG/ML Topical Cream [Silvadene] Leung dene 03/24/2020 12:00:00 AM EDT active M [facility]ENT ([facility] Geritol Complete 01/15/2020 12:00:00 AM EDT ORAL a ctive MED[facility] ([facility] Levothyroxine Sodium 0.125 MG Oral Tablet Levothyroxine Sodi um 07/28/2019 12:00:00 AM EST active M EDENT ([facility] Insurance Providers Payer name Policy type / Coverage type Policy ID Covered constitution party ID Covered constitution party's relationship to candelaria Policy Candelaria Plan Information [facility] [id number] [facility] [id number] [facility] [id number] [facility] EMPIRE PLAN [id number] 01 [id number] EMPIRE ([facility]) O [id number] S [id number] [place] Plan F [id number] SPOUSE [id number] [facility] O [id number] S [id number] [place] Plan F [id number] SPOUSE [id number] UMR [facility] [id number] SP [id number] R [facility] [id number] SP [id number] [facility] [id number] BCBS EMPIRE BEN[place] DIV [id number] HU2 [id number] ANSI-Commercial [id number] [facility] [place] Plan Health Maintenance Organization (HMO) [id number] Family Dependent [id number] [facility] [place] Plan Health Maintenance Organization (HMO) [id number] Family Dependent [id number] MANAGED PHYSICAL NETWORK -RCR [id number] 01 [id number] BLUE CROSS BLUE SHIELD -RECURRING [id number] [id number] [facility] [id number] 01 [id number] EMPIRE BLUE CROSS BLUE SHIELD -O/P [id number] 19 [id number] EMPIRE BLUE CROSS BLUE SHIELD -O/P [id number] 19 [id number] O UNAVAILABLE UNAVAILA BLE State Ins [facility] () Workers Compensation [id number] Self [id number] [facility] Ins [facility] () Workers Compensation [id number] Self [id number] [place] [facility] Medigap Part B [id number] Self [id number] State Insurance Fund Workers Compensation [id number] Self [id number] [facility] Ins [facility] () Workers Compensation [id number] Self [id number] Special Funds-Dew () Workers Compensation [id number] Self [id number] [employer] Workers Compensation [id number] Family Depen dent [id number] [place] [employer] Medigap Part B [id number] Self [id number] [place] [facility] Health Maintenance Organization (HMO) [id number] Family Dependent [id number] EMPIRE ([facility]) O [id number] P [id number] [employer] [place] Health Maintenance Organization (HMO) Family Dependent [employer] [place] Health Maintenance Organization (HMO) Family Dependent STATE INSURANCE FUND [id number] SP [id number] UNITED [employer] O [id number] S [id number] State Insurance Fund Workers Compensation Self State Ins Fund () Workers Compensation Self Special Funds-Dew (WC) Workers Compensation Self [facility] Health Maintenance Organization (HMO) Family Dependent [employer] [place] Commercial Family Depende nt [facility] [id number] SP [id number] BCBS [facility] DIV [id number] SP [id number] OTHER WORKERS COMPENSATION [id number] SP [id number] WORKER'S COMP [id number] Emp [id number] UNITED HEALTHCARE [id number] SP [id number] Surgeries/Procedures Procedure Description Date Indications Data Source(s) Injection (SC)/(Im) 03/24/2020 12:00:00 AM EDT [facility] Electrocardiogram Complete 01/15/2020 12:00:00 AM EDT [facility] ([facility] Electrocardiogram Complete 01/15/2020 12:00:00 AM EDT [facility] ([facility] Results ID Date Data Source [id number] 06/23/2020 12:48:43 PM EST [facility]: Sabrina AngelDOB: 1960Provider: Dat [...] [facility] complaining of left knee pain. History: This is a visit under her private insurance. She is accompanied by her . She is dressed head to toe in a [place] outfit, green and red with white stockings [...] rce(s) Supporting Document(s) ID Date Data Source [id number] 06/23/2020 12:48:41 PM EST [facility]: Sabrina AngelDOB: 1960Provider: Roney [...] run, hop, skip or jump. She takes hilh-lyy-wftgeil medications, which don't seem to help. She uses Voltaren Gel. She typed a summary of her present level of function, sort of a qwpc-[id number]-fvpb perspective, from her standpoint, of her continuing [...] right knee which is prominent based on [place] Workmen's Compensation guidelines Signatures Electronically signed by : Marisa Zavala, ; Jun 16 2020 12:42PM EST Electronically signed by : Delmy Ramirez M.D.; Jun 23 2020 12:48PM EST Name Value Range Interpretation Code Description Data Garima rce(s) Supporting Document(s) ID Date Data Source [id number] 05/28/2020 12:00:00 AM EST [facility] Burce Contreras MD Patient Name:FATEMEH ANGEL [facility] Date [place] : 1960[place] [address] Date of Exam: 05/28/2020PH#: Fax: [phone] EXAM: [...] rce(s) Supporting Document(s) ID Date Data Source [id number] 05/27/2020 12:00:00 AM EST [facility] Bruce Contreras MD Patient Name:FATEMEH ANGEL [facility] [address] Date of : 1960[place] [address] Date of Exam: 05/27/2020#: Fax: [phone] EXAM: [...] rce(s) Supporting Document(s) ID Date Data Source [id number] 05/13/2020 12:00:00 PM EST [facility] Name Value Range Interpretation Code Description Data Garima rce(s) Supporting Document(s) SARS coronavirus 2 RNA [facility] This lab was ordered by [facility] and reported by [facility]. ID Date Data Source [id number] 04/02/2020 11:10:15 AM EDT [facility]: Sabrina AngelDOB: 1960Provider: Dat Ramirez: 03/31/2020 Reason For VisitElilinsu Angel is an established patient here for [...] rce(s) Supporting Document(s) ID Date Data Source [id number] 03/31/2020 02:56:16 PM EDT [facility]: Sabrina AngelDOB: 1960Provider: Dat [...] rce(s) Supporting Document(s) ID Date Data Source [id number] 03/24/2020 12:04:00 PM EDT [facility] ([facility] Name Value Range Interpretation Code Description Data Garima rce(s) Supporting Document(s) Bacteria identified in Unspecified specimen by Aerobe culture Laboratory test result [facility] ([facility]) SRC:LEFT LEG WOUND Bacteria identified in Unspecified specimen by Culture Laborator y test result [facility] ([facility] Del Angel ) SRC:LEFT LEG WOUND ID Date Data Source [id number] 03/12/2020 05:19:27 PM EDT [facility]: Sabrina AngelDOB: 1960Provider: Delmy [...] was, in some part, due to the ocean export coordinator's opinion that my notes were inconsistent or [...] rce(s) Supporting Document(s) ID Date Data Source [id number] 02/24/2020 01:18:00 PM EDT [facility] ([facility] Name Value Range Interpretation Code Description Data Garima rce(s) Supporting Document(s) Glu 98 mg/dL 70-110 [facility] ([facility] CHRONIC KIDNEY [...] mL/min Normal BUN 13 mg/dL 8-23 [facility] ([facility] CHRONIC KIDNEY DISEASE STAGING PER [...] mL/min Normal Creat 0.7 mg/dL 0.5-1.0 [facility] ([facility] CHRONIC KIDNEY DISEASE STAGING PER [...] mL/min Normal BUN/Creatinine Ratio 17.5 CALC MEDENT ([facility] CHRONIC KIDNEY DISEASE STAGING [...] mL/min Normal Na 140 mmol/L 136-145 [facility] ([facility] CHRONIC KIDNEY DISEASE STAGING [...] mL/min Normal CL 106.6 mmol/L 98.0-107.0 [facility] ([facility] CHRONIC KIDNEY [...] mL/min Normal Co2 23.7 mmol/L 22.0-29.0 [facility] ([facility] CHRONIC KIDNEY [...] mL/min Normal K 4.5 mmol/L 3.5-5.1 [facility] ([facility] CHRONIC KIDNEY [...] mL/min Normal Alb 4.3 g/dL 3.4-4.8 [facility] ([facility] CHRONIC KIDNEY [...] mL/min Normal CA 9.0 mg/dL 8.6-10.2 [facility] ([facility] CHRONIC KIDNEY [...] mL/min Normal A/G Ratio 2.2 CALC [facility] ([facility] CHRONIC KIDNEY [...] and above >32 mL/min Normal eGFR Non-Afr. [place] 94 # DANIELLE ([facility] CHRONIC KIDNEY DISEASE STAGING PER [...] >32 mL/min Normal ID Date Data Source [id number] 02/24/2020 01:18:00 PM EDT D[facility]ELLE ([facility] Name Value Range Interpretation Code Description Data Garima rce(s) Supporting Document(s) Thyrotropin [Units/volume] in Serum or Plasma 4.500 ulU/mL 0.60-4.8 [facility]ELLE ([facility] ID Date Data Source [id number] 02/04/2020 12:00:00 AM EDT [facility] Delmy Ramirez MD Patient Name:GEMA [id number] [facility] Date of : 1960uite [address] Date of Exam: 02/04/2020JOSE Cardona [id number]#: Fax: [phone] EXAM: US LEFT EXTREMITY VEINS, [...] magnetic resonancevenography can be obtained.Accredited by the [employer] in Vascular PeripheralUltrasound.PAT Marc/Amando you for referring SABRINA ANGEL to our office. Electronically Signed - WILBUR GAN DO 02/04/20 15:05 Name Value Range Interpretation Code Description Data Garima rce(s) Supporting Document(s) ID Date Data Source [id number] 02/06/2020 11:21:11 AM EDT [facility]: Sabrina AngelDOB: 1960Provider: Jeffery [...] (SOS) - General Treatment Treatment Status: Complete Done:[id number] Ordered;For: Joint pain, knee, Left knee pain; Ordered By: Ana Garcia Performed: Order Comments: s/p lateral meniscectomy dos 01/27/2020 Due: [id number]; Last Updated By: Kassidy La; 02/03/2020 3:52:03 PMDuration: : Four WeeksPT Frequency : Twice a weekLaterality and Body Part : left knee Venous Doppler (SOS) Referral Treatment Treatment Status: Complete Done:[id number] Ordered;For: Calf pain, Swelling of calf; Ordered By: Ana Garcia Performed: Due: [id number]; Last Updated By: Kassidy La; 02/03/2020 3:51:14 PMRule out deep vein thrombosis : YesExtremity : Lower ExtremityLaterality: : Left Plan, Assessment and Recommendation(s) Schedule appointment: in 4-6 weeks. The nature of the diagnosis and various treatment alternatives were discussed today, including invasive, operative, and non-operative options. DisclaimersThis document was dictated and electronically signed using [employer] Speaking software. A reasonable attempt at proof reading has been made to minimize errors. Please call with any questions. Signatures Electronically signed by : Ana Garcia PA-C; Feb 03 2020 3:55PM EST (Author) Electronically signed by : Delmy Ramirez M.D.; Feb 06 2020 11:21AM EST Name Value Range Interpretation Code Description Data Garima rce(s) Supporting Document(s) ID Date Data Source [id number] 01/22/2020 02:14:00 AM EDT [facility] Name Value Range Interpretation Code Description Data Garima rce(s) Supporting Document(s) SARS coronavirus 2 PCR [facility] This lab was ordered by [facility] and reported by [facility] antenna installer [employer]. ID Date Data Source [id number] 11/19/2019 12:03:29 PM EDT [facility] PCName: Sabrina Sanchez-WardDOB: 1960Provider: Dat [...] of the midfoot and she sees a bending shed worker for this in the [place] area and apparently they are considering doing some kind of tendon transfer to help control this. She wears a Swede-O support sleeve on both ankles. She is in today accompanied by her for evaluation. She used to work for the [employer]. She recalls that they were playing [...] knee; NINFA = N; Verified Transmission to [facility]; Msg to Pharmacy: Reference #:[id number]; Last Updated By: Sridevi Saucedo; 11/12/2019 3:40:34 PM X-Ray I Knee - 3 views (XRays were ordered, obtained and interpreted today in theoffice. Indication: pain/dysfunction.); Status:Complete; Done: 12Nov2019 Perform:SOS29; Due:[id number]; Last Updated By:Ana Holland; 11/12/2019 2:44:15 PM;Ordered; For:Left knee pain; Ordered By:Delmy Ramirez;Weight Bearing Status : Weight bearingLaterality: : Left Signatures Electronically signed by : Lacey Wilcox, ; Nov 13 2019 9:30AM EST Electronically signed by : Delmy Ramirez M.D.; Nov 19 2019 12:03PM EST Name Value Range Interpretation Code Description Data Garima rce(s) Supporting Document(s) ID Date Data Source [id number] 09/23/2019 03:38:35 PM EDT [facility] PCName: Sabrina Sanchez-WardDOB: 1960Provider: Roney [...] meniscus tear. There is some areas of [id number] in the medial and patellofemoral compartments of [...] rce(s) Supporting Document(s) ID Date Data Source [id number] 08/25/2019 10:05:00 AM EDT [facility] PATIENT MR#: [id number] NAME: Sabrina Bar ADATE OF : 1960REFERRING PHYSICIAN: Delmy RamirezEXVESNA DATE: 08/22/2019EXAM: MRI left KneeINDICATION: Primary osteoarthritis of one knee. Injury to left knee whenstepping down off a curb with right foot 07/03/2019. [place] and heard a snap inleft knee.COMPARISON: Left [...] cartilage degenerative changes.Read by: Steven Nino by: Steevn Nino Date: 08/25/2019 10:05:26 AMElectronically signed by: Steven Collins signed: 08/25/2019 10:05:42 AM Name Value Range Interpretation Code Description Data Garima rce(s) Supporting Document(s) ID Date Data Source [id number] 08/15/2019 09:25:00 AM EST [facility] ([facility] Name Value Range Interpretation Code Description Data Garima rce(s) Supporting Document(s) Thyrotropin [Units/volume] in Serum or Plasma 2.657 ulU/mL 0.60-4.8 [facility] ([facility] ID Date Data Source [id number] 08/15/2019 09:25:00 AM EST [facility] ([facility] Name Value Range Interpretation [...] Serum or Plasma 65 mg/dL 45-6 5 [facility] ([facility] CLASSIFICATION CHOLESTEROL FO [...] mL/min Normal Cho/HDL Ratio 2.3 CALC [facility] ([facility] CLASSIFICATION CHOLESTEROL FO R ADULTS [...] >32 mL/min Normal ID Date Data Source [id number] 08/15/2019 09:25:00 AM EST [facility] ([facility] Name Value Range Interpretation Code Description Data Garima rce(s) Supporting Document(s) Glu 94 mg/dL 70-110 [facility] ([facility] CLASSIFICATION CHOLESTEROL FO R ADULTS [...] mL/min Normal BUN/Creatinine Ratio 19.0 Calc [facility] ([facility] CLASSIFICATION CHOLESTEROL FO R [...] >32 mL/min Normal BUN 15 mg/dL 01-31 [facility] ([facility] CLASSIFICATION [...] Normal CL 106.3 mmol/L 98.0-107.0 [facility] ([facility] CLASSIFICATION CHOLESTEROL FO R [...] mL/min Normal Co2 23.7 mmol/L 22.0-29.0 [facility] ([facility] CLASSIFICATION CHOLESTEROL FO R [...] mL/min Normal Alb 4.3 g/dL 3.4-4.8 [facility] CLASSIFICATION CHOLESTEROL FO [...] >32 mL/min Normal Globulin 2.2 Calc [facility] ([facility] CLASSIFICATION CHOLESTEROL [...] Alt (SGPT) 22 U/L 0-41 [facility] ([facility] CLASSIFICATION CHOLESTEROL FO [...] mL/min Normal Alp 87.6 U/L 35-129 [facility] CLASSIFICATION CHOLESTEROL FO [...] and above >32 mL/min Normal eGFR Non-Afr. [place] 80 # [facility] ([facility] [...] >32 mL/min Normal ID Date Data Source [id number] 08/11/2019 12:46:34 PM EST [facility] PCName: Sabrina Sanchez-WardDOB: 1960Provider: Dat [...] rce(s) Supporting Document(s) ID Date Data Source [id number] 08/07/2019 08:25:22 AM EST [facility] PCName: Sabrina Sanchez-WardDOB: 1960Provider: Dat [...] 20 lbs. May need parking accomodations. [facility] Signatures Electronically signed by : Laura Hwang, ; Aug 07 2019 7:53AM EST Electronically signed by : Delmy Ramirez M.D.; Aug 07 2019 8:25AM EST Name Value Range Interpretation Code Description Data Garima e(s) Supporting Document(s) ID Date Data Source [id number] 07/14/2019 08:40:38 AM EST [facility] PCName: Sabrina AngelDOB: 1960Provider: Dat Ramirez: 07/09/2019 AssessmentSabrina Segovia twisted her knee and fell last , was seen in the emergency room of [facility], where x-rays of her knee revealed her [...] reviewed the report from her x-rays at [facility], which show no fracture and are consistent [...] rce(s) Supporting Document(s) ID Date Data Source [id number] 06/10/2019 12:00:00 AM EST [facility] Rudolph Guallpa DPM Patient Name:SABRINA [id number] Date of : 1960[place] [address] Date of Exam: 06/10/2019PH#: Fax: [phone] EXAM: [...] Other findings as described above.Accredited by the [employer] in MR.PAT Marc/jmcTnapoleon you for referring SABRINA ANGEL to our office. Electronically Signed - WILBUR GAN DO 06/12/19 16:22 Name Value Range Interpretation Code Description Data Garima rce(s) Supporting Document(s) ID Date Data Source [id number] 05/14/2019 12:36:15 PM EST [facility] PCName: Sabrina AngelDOB: 1960Provider: Dat [...] Pulse oximetry 96 % 96 % [facility] ([facility] Body mass index (BMI) [Ratio] 41.3 kg/m2 41.3 k g/m2 [facility] ([facility] [place] body weight 125 [lb_av] 125 [lb_av] [facility] T ([facility] Body weight 248.00 [lb_av] 248.00 [lb_av] [facility] T ([facility] Body height 65 [in_i] 65 [in_i] [facility] ([facility] 5'5" Respiratory rate 16 /min 16 /min [facility] ( [facility] Heart rate 50 /min 50 /min [facility] ([facility] Body temperature 98.0 [degF] 98.0 [degF] [facility] ([facility] Diastolic blood pressure 68 mm[Hg] 68 mm[Hg] [facility] ([facility] Systolic blood pressure 108 mm[Hg] 108 mm[Hg] M EDENT ([facility] Oxygen saturation in Arterial blood by Pulse oximetry 96 % 96 % [facility] ([facility] [place] body weight 125 [lb_av] 125 [lb_av] MEDEN [...] k g/m2 [facility] ([facility] [place] body weight 125 [lb_av] 125 [lb_av] MEDEN [...] k g/m2 [facility] ([facility] [place] body weight 125 [lb_av] 125 [lb_av] MED[facility] T ([facility] Body weight 245.00 [lb_av] 245.00 [lb_av] MED[facility] T ([facility] Body height 65 [in_i] 65 [in_i] [facility] ([facility] 5'5" Respiratory rate 18 [...] Pulse oximetry 98 % 98 % [facility] ([facility] Body mass index (BMI) [Ratio] 41.9 kg/m2 41.9 k g/m2 [facility] ([facility] [place] body weight 125 [lb_av] 125 [lb_av] MED[facility] T ([facility] Body weight 252.00 [lb_av] 252.00 [lb_av] MED[facility] T ([facility] Body height 65 [in_i] 65 [in_i] [facility] ([facility] 5'5" Respiratory rate 16 [...] [Ratio] 41.9 kg/m2 41.9 k g/m2 [facility] ([facility]) Body weight 252.00 [lb_av] 252.00 [lb_av] MED[facility] T ([facility] ) Body height 65 [in_i] 65 [in_i] [facility] ([facility] ) 5'5" Oxygen saturation in Arterial blood by Pulse oximetry 99 % 99 % [facility] ([facility] Body mass index (BMI) [Ratio] 41.3 kg/m2 41.3 k g/m2 [facility] ([facility] [place] body weight 125 [lb_av] 125 [lb_av] [facility] T ([facility] Body weight 248.00 [lb_av] 248.00 [lb_av] MED[facility] T ([facility] Body height 65 [in_i] 65 [in_i] [facility] ([facility] 5'5" Respiratory rate 18 [...] Body height 65 [in_i] 65 [in_i] [facility] ([facility] 5'5" Respiratory rate 14 /min 14 /min [facility] ( [facility] Heart rate 80 /min 80 /min [facility] ([facility] Body temperature 97.5 [degF] 97.5 [degF] [facility] ([facility] Diastolic blood pressure 84 mm[Hg] 84 mm[Hg] DANIELLE ([facility] Systolic blood pressure 134 mm[Hg] 134 mm[Hg] Radhames HERNANDEZ ([facility] Oxygen saturation in Arterial blood by Pulse oximetry 98 % 98 % DANIELLE ([facility] Body mass index (BMI) [Ratio] 41.3 kg/m2 41.3 k g/m2 [facility] ([facility] Body weight 248.00 [lb_av] 248.00 [lb_av] MED[facility] T ([facility] Body height 65 [in_i] 65 [in_i] [facility] ([facility] 5'5" Respiratory rate 18 /min 18 /min [facility] ( [facility] Heart rate 70 /min 70 /min MEDDARLENE ([facility] Body temperature 97.8 [degF] 97.8 [degF] [facility] ([facility] Diastolic blood pressure 88 mm[Hg] 88 mm[Hg] DANIELLE ([facility] Systolic blood pressure 136 mm[Hg] 136 mm[Hg] Radhames HERNANDEZ ([facility]
[2020-06-25] MEDS ORDERED: SYNT125T PO (17:59)
[2020-06-25] MEDS ORDERED: D31000TA2 PO (17:59)
[2020-06-25] MEDS ORDERED: MULTTAB86 PO (17:59)
[2020-06-25] MEDS ORDERED: diltiaZEM 125 MG in NS 100 ML IV SCH ×2 (18:00→19:45)
[2020-06-25] MEDS ORDERED: RIVAROXABAN 10 MG TAB (XARELTO) PO SCH (18:00)
--- NOTE | 2020-06-25 18:21 | ECGEPIP ---
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
[2020-06-25 18:44] LABS: RSV AMPLIFICATION NEGATIVE (NEGATIVE)
[2020-06-25 19:11] LABS: FREE T4 1.24 NG/DL (0.76-1.46); TROPONIN I < 0.02 NG/ML (< 0.10)
[2020-06-26] MEDS: NS 1,000 ML IV SCH ×2 (02:26→11:45)
--- NOTE | 2020-06-26 05:34 | ECGEPIP ---
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
[2020-06-26] MEDS ORDERED: METOPROLOL TART 12.5 MG PER 1/2 TAB PO SCH (09:00)
[2020-06-26] MEDS ORDERED: diltiaZEM **CD** 180 MG CAP PO SCH (09:00)
[2020-06-26 09:25] LABS: HEMATOCRIT 42.2 % (36.0-47.0); HEMOGLOBIN 13.8 g/dl (12.0-15.5); MEAN CORPUSCULAR HEMOGLOBIN 29.3 pg (27.0-33.0); MEAN CORPUSCULAR HGB CONC 32.7 g/dl (32.0-36.5); MEAN CORPUSCULAR VOLUME 89.6 fl (80.0-96.0); PLATELET COUNT, AUTOMATED 340 10^3/uL (150-450); RED BLOOD COUNT 4.71 10^6/uL (4.00-5.40); WHITE BLOOD COUNT 5.9 10^3/uL (4.0-10.0)
[2020-06-26 09:46] LABS: ALBUMIN 3.4 GM/DL (3.2-5.2); ALT/SGPT 33 U/L (12-78); BILIRUBIN,TOTAL 0.8 MG/DL (0.2-1.0); BLOOD UREA NITROGEN 10 MG/DL (7-18); CALCIUM LEVEL 8.4 MG/DL (8.8-10.2); CARBON DIOXIDE LEVEL 23 MEQ/L (21-32); CHLORIDE LEVEL 112 MEQ/L (98-107); CREATININE FOR GFR 0.78 MG/DL (0.55-1.30); GLOMERULAR FILTRATION RATE > 60.0 (>45); GLUCOSE, FASTING 95 MG/DL (70-100); MAGNESIUM LEVEL 2.1 MG/DL (1.8-2.4); POTASSIUM SERUM 4.2 MEQ/L (3.5-5.1); SODIUM LEVEL 143 MEQ/L (136-145); TOTAL PROTEIN 6.1 GM/DL (6.4-8.2)
[2020-06-26] MEDS: diltiaZEM 125 MG in NS 100 ML IV SCH ×2 (14:32→22:27)
--- NOTE | 2020-06-26 15:40 | IPNPDOC ---
Text Note Date of Service The patient was seen on 06/26/20. NOTE Subjective: In the morning patient received Cardizem 180 mg, diltiazem drip was stopped after 1 hour, however patient developed tachycardia around 1 PM, diltiazem drip restarted. Objective: GENERAL APPEARANCE: NAD HEENT: no scleral icterus, no JVD, EOMI CARDIOVASCULAR: Irregularly irregular LUNGS: CTA ABDOMEN: soft & not tender w palpitation MUSCULOSKELETAL: no cyanosis, no swelling INTEGUMENT: no generalized pallor NEUROLOGICAL: cranial nerve function from 2-12 intact intact, follows commands, speech not dysarthric Assessment/Plan Patient is 60 years old female with past medical history of morbid obesity, asthma, hypothyroidism presented hospital with palpitations. Patient stated that around 12 noon time he has been having palpitation. She stated that she had palpitations for many years but she was never diagnosed with atrial fibrillation. Patient denies any chest pain, any shortness of breath but she stated that she has lightheadedness. In ER patient was found to have atrial fibrillation on EKG with rapid ventricular rate of 140. Patient received the dose of Lopressor and metoprolol 25 mg by mouth without effect. Labs pertinent for no leukocytosis. Patient does not have any fever, diarrhea or dysuria Problems (1) Atrial fibrillation with RVR c/w Diltiazem drip Xarelto TSH and T4 wnl Echo pending Troponin neg (2) Hypothyroidism Continue with levothyroxine (3) Asthma Not in acute exacerbation VS,Fishbone, I+O VS, Fishbone, I+O Laboratory Tests 06/25/20 15:50 06/26/20 09:04 Vital Signs Date Time Temp Pulse Resp B/P (MAP) Pulse Ox O2 Delivery O2 Flow Rate FiO2 06/26/20 15:34 98.0 98 18 107/68 (81) 100 06/26/20 06:00 Room Air I&O- Last 24 Hours up to 6 AM 06/26/20 05:59 Intake Total 1005 ml Balance 1005 ml MUNA DELGADO DO Jun 26, 2020 15:40
[2020-06-26 16:00] VITALS: BP 117/66
[2020-06-26] MEDS: RIVAROXABAN 20 MG TAB (XARELTO) PO SCH (18:24)
[2020-06-26 20:00] VITALS: BP 114/59
[2020-06-26 22:00] VITALS: BP 115/73
[2020-06-27] VITALS (11 sets, daily range): BP systolic 89–128; BP diastolic 53–85
[2020-06-27 06:15] LABS: BASO % 0.4 % (0.0-1.0); EOS # 0.2 10^3/uL (0.0-0.5); HEMATOCRIT 44.4 % (36.0-47.0); HEMOGLOBIN 13.8 g/dl (12.0-15.5); LYMPH # 1.9 10^3/uL (1.5-5.0); LYMPH % 28.6 % (24.0-44.0); MEAN CORPUSCULAR HEMOGLOBIN 28.7 pg (27.0-33.0); MEAN CORPUSCULAR HGB CONC 31.1 g/dl (32.0-36.5); MEAN CORPUSCULAR VOLUME 92.3 fl (80.0-96.0); MONO # 0.7 10^3/uL (0.0-0.8); MONO % 9.9 % (0.0-5.0); NEUTROPHILS # 3.9 10^3/uL (1.5-8.5); PLATELET COUNT, AUTOMATED 346 10^3/uL (150-450); RED BLOOD COUNT 4.81 10^6/uL (4.00-5.40); WHITE BLOOD COUNT 6.7 10^3/uL (4.0-10.0)
[2020-06-27 06:36] LABS: BLOOD UREA NITROGEN 19 MG/DL (7-18); CALCIUM LEVEL 8.7 MG/DL (8.8-10.2); CARBON DIOXIDE LEVEL 22 MEQ/L (21-32); CHLORIDE LEVEL 111 MEQ/L (98-107); CREATININE FOR GFR 0.91 MG/DL (0.55-1.30); GLOMERULAR FILTRATION RATE > 60.0 (>45); GLUCOSE, FASTING 97 MG/DL (70-100); POTASSIUM SERUM 4.1 MEQ/L (3.5-5.1); SODIUM LEVEL 141 MEQ/L (136-145)
[2020-06-27] MEDS ORDERED: DIGOXIN 0.125 MG TAB PO ONE (10:30)
--- NOTE | 2020-06-27 10:52 | IPNPDOC ---
Text Note Date of Service The patient was seen on 06/27/20. NOTE Subjective: In the morning patient received Cardizem 240 mg , however patient continues to have heart rate around 120 after 1-2 hours Objective: GENERAL APPEARANCE: NAD HEENT: no scleral icterus, no JVD, EOMI CARDIOVASCULAR: Irregularly irregular LUNGS: CTA ABDOMEN: soft & not tender w palpitation MUSCULOSKELETAL: no cyanosis, no swelling INTEGUMENT: no generalized pallor NEUROLOGICAL: cranial nerve function from 2-12 intact intact, follows commands, speech not dysarthric Assessment/Plan Patient is 60 years old female with past medical history of morbid obesity, asthma, hypothyroidism presented hospital with palpitations. Patient stated that around 12 noon time he has been having palpitation. She stated that she had palpitations for many years but she was never diagnosed with atrial fibrillation. Patient denies any chest pain, any shortness of breath but she stated that she has lightheadedness. In ER patient was found to have atrial fibrillation on EKG with rapid ventricular rate of 140. Patient received the dose of Lopressor and metoprolol 25 mg by mouth without effect. Labs pertinent for no leukocytosis. Patient does not have any fever, diarrhea or dysuria Problems (1) Atrial fibrillation with RVR c/w Diltiazem drip Xarelto TSH and T4 wnl Echo pending Troponin neg Continue loading with diltiazem PO Added digoxin by mouth Appreciate/agree with barge engineer consult (2) Hypothyroidism Continue with levothyroxine (3) Asthma Not in acute exacerbation VS,Fishbone, I+O VS, Fishbone, I+O Laboratory Tests 06/27/20 05:53 Vital Signs Date Time Temp Pulse Resp B/P (MAP) Pulse Ox O2 Delivery O2 Flow Rate FiO2 06/27/20 10:30 105 06/27/20 10:00 116/63 (80) 94 06/27/20 08:00 98.0 16 Room Air I&O- Last 24 Hours up to 6 AM 06/27/20 06:00 Intake Total 765 ml Output Total 1150 ml Balance -385 ml MUNA DELGADO DO Jun 27, 2020 10:52
[2020-06-27] MEDS ORDERED: diltiaZEM 125 MG in NS 100 ML IV SCH (12:45)
--- NOTE | 2020-06-27 16:44 | CR ---
CONSULTATION DATE: 06/26/2020 REFERRING PHYSICIAN: Dr. Caldwell. HISTORY OF PRESENT ILLNESS: The patient is a 60-year-old morbidly obese white female who was admitted to [facility] on June 25, 2020 with atrial fibrillation with rapid ventricular response. She recognized that she was having palpitations. Her actually has a monitor that can generate an electrocardiogram (EKG), which it interpreted as atrial fibrillation, which brought her to the emergency room. She had a sensation of palpitations and occasionally also had a slight sensation of chest discomfort, but otherwise felt relatively well. The EKG recorded atrial fibrillation with rapid ventricular response in the emergency room. There were no ischemic abnormalities and her cardiac enzymes were negative. She was given initially intravenous (IV) and p.o. metoprolol, which had very limited effect and consequently, she was switched to Cardizem drip. It led to fairly prompt restorationism of rate control, but when she was switched to oral preparation in the form of long-acting Cardizem CD 180 mg daily yesterday, her heart rate accelerated again. Consequently, the dose was increased to 240 mg today, but because she was still tachycardic, she was simultaneously started on IV Cardizem drip, currently at 5 mg/hr and she also received a single dose of 0. 125 mg of digoxin. At the time of my dictation, she feels comfortable. Her heart rate is between 90-115 beats per minute atrial fibrillation. Patient denies any prior history of cardiovascular disease. She denies hypertension, dyslipidemia or diabetes. She reported she had a cardiac evaluation prior to bariatric surgery, but it was in 2006. She is not overly active due to orthopedic limitations, but believes that she can walk two blocks without stopping at a relatively slow pace that would not be associated with any cardiovascular symptoms. She does report longstanding history of palpitations, but they would last only 2-3 seconds at a time. She never had any sustained palpitations before. She denies any significant changes in her weight lately. There have not been any recent sicknesses. The most recent problem was colonoscopy in early May, which was unremarkable. She denies any fluctuation in her weight. She is not aware of obstructive sleep apnea (JOAN). She believes that her sleep quality is good and she feels refreshed in the morning. PAST MEDICAL HISTORY: 1. Morbid obesity, history of bariatric surgery in 2006. 2. Degenerative joint disease. 3. Asthma. 4. Hypothyroidism. SOCIAL HISTORY: Patient is . 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 She is mother of three children. There is no history of smoking and she does not drink alcohol. FAMILY HISTORY: Patient's mother of cancer and her father of stroke. Her father had two siblings, both of which had coronary artery disease at an early age. SURGICAL HISTORY: 1. Right knee replacement. 2. Arthroscopic left knee surgery. 3. Bilateral shoulder surgeries. 4. Bariatric surgery. 5. Tubal ligation. ALLERGIES: LATEX, OPIOIDS, CLARITHROMYCIN. OUTPATIENT MEDICATIONS: - vitamin D3 1000 units a day - Breo Ellipta 1 puff at night - levothyroxine 125 mcg a day - multivitamin daily REVIEW OF SYSTEMS: She denies any recent fever, chills, nausea, vomiting. She has occasional diarrhea as what she believes to be irritable bowel syndrome (IBS). There has been no chest pain, syncope, near syncope, history of congestive heart failure or coronary artery disease (CAD). The rest is negative or as history of present illness (HPI). PHYSICAL EXAMINATION: The patient is a 60-year-old woman who appears approximately her age. She does not appear to be in any distress. VITALS SIGNS: Blood pressure 116/63, heart rate 102 irregularly irregular, saturation 94% on room air, weight recorded as 110 kg yesterday. GENERAL: She is alert, oriented and appropriate. Her jugular venous pressure (JVP) is not elevated. I do not appreciate any goiter. LUNGS: Clear with good air movement. HEART: Reveals irregularly irregular rhythm, somewhat muffled heart sounds, corresponding to her obesity. I do not appreciate any gallop, rub or murmur. ABDOMEN: Obese, but soft and nontender. EXTREMITES: Free of edema. Peripheral pulses are of good quality. NEUROLOGICAL: She is intact. LABORATORY DATA: She tested negative for influenza, respiratory syncytial virus (RSV), severe acute respiratory syndrome (SARS) and COVID, too. CBC is normal. Basic metabolic panel is also normal. Liver function tests were normal. Three sets of cardiac enzymes were normal. TSH was 3.6. Beta natriuretic peptide (BNP) was not drawn. Electrocardiogram (ECG) revealed atrial fibrillation with rapid ventricular response, but otherwise is unremarkable. Echocardiogram is pending. IMAGING DATA: Chest x-ray revealed no acute disease. ASSESSMENT AND PLAN: The patient is a 60-year-old female with longstanding history of morbid obesity who presents with atrial fibrillation with rapid ventricular response. She is mildly symptomatic. Her heart rate control has not been established as yet. The management is a little bit tricky now when she already received a dose of long-acting Cardizem. At this point, I would continue the IV Cardizem on top of her current Cardizem until she uses up the current bag. Then, if needed, we can give her short-acting Cardizem on top of her long-acting Cardizem. I do believe that Cardizem is appropriate initial choice (my preference would typically be metoprolol, but she has a history of asthma). It takes generally 5-7 doses of the medicine before steady state is accomplished and obviously, with long-acting medication, it will take a long time. Consequently, I believe that she does not have to be perfect in order to go home as far as the rate control is concerned and I am hopeful that by tomorrow, we will have accomplished that. We can follow her up on an outpatient basis. She was started on Xarelto for anticoagulation, which is a perfectly acceptable choice. An echocardiogram will be performed, likely tomorrow. I do not expect that she will have left ventricular (LV) dysfunction, as the onset of symptoms was relatively recent. After the results of the echocardiogram are complete, we will formulate a long-term plan on an outpatient basis. I think in principal, we can contemplate many things, including early cardioversion, both chemically or electrically, and we can also consider rate control therapy, but I believe considering recent onset of symptoms, I think that rhythm control will be the method of choice. LUKASZ
[2020-06-27] MEDS: RIVAROXABAN 20 MG TAB (XARELTO) PO SCH (18:18)
[2020-06-28] VITALS: BP 123/80
[2020-06-28 04:00] VITALS: BP 123/74
[2020-06-28 08:00] VITALS: BP 120/76
--- NOTE | 2020-06-28 08:39 | IPN ---
PROGRESS NOTE DATE: 06/28/2020 SUBJECTIVE: Mrs. Segovia had a normal night. She was able to sleep. She does not have any palpitations at rest but she feels tachycardia with ambulation. Her heart rate on telemetry remained around 100 BMP on average. She spikes into 130's and 140's with activity. She did receive Cardizem Immediate Release on top of yesterday morning 240 mg of Extended Release. She denies any chest pain or shortness of breath. PHYSICAL EXAMINATION: VITAL SIGNS: Blood pressure this morning was 123/74, has been in the similar range throughout, heart rate as above. She is afebrile, saturation 94% on room air. NECK: Her JVP is not high. LUNGS: Clear. HEART: Irregularly irregular rhythm. EXTREMITIES: No peripheral edema. NEUROLOGICAL: Intact. LABORATORY STUDIES: There was no CBC or basic metabolic panel drawn this morning. ASSESSMENT AND PLAN: Mrs. Angel is a 60-year-old female who came with atrial fibrillation with rapid ventricular response. She initially was given IV Cardizem that was immediately switched to Extended Release form Cardizem, and so far the rate control has not been perfect, but she is relatively asymptomatic. She does not have any signs of congestive heart failure and does not have any bradycardia or extreme tachycardia. I advanced the dose of Cardizem C.D. to 360 mg this morning. I personally believe that she can be discharged home later today after her echocardiogram is completed, provided the study does not reveal LV dysfunction, especially severe LV systolic dysfunction. I do realize that her rate control is not perfect, but the effectiveness of the medication will increased over time and I plan to see her in follow up in the office to work on a rate control. Otherwise I spoke with her yesterday extensively about further management.
[2020-06-28] MEDS ORDERED: diltiaZEM **CD** 180 MG CAP PO SCH (09:00)
[2020-06-28 09:06] LABS: BASO % 0.3 % (0.0-1.0); EOS # 0.3 10^3/uL (0.0-0.5); EOS % 3.9 % (0.0-3.0); HEMATOCRIT 46.4 % (36.0-47.0); HEMOGLOBIN 15.3 g/dl (12.0-15.5); LYMPH # 1.8 10^3/uL (1.5-5.0); MEAN CORPUSCULAR HEMOGLOBIN 29.9 pg (27.0-33.0); MEAN CORPUSCULAR VOLUME 90.6 fl (80.0-96.0); MONO # 0.8 10^3/uL (0.0-0.8); MONO % 10.7 % (0.0-5.0); NEUTROPHILS # 4.2 10^3/uL (1.5-8.5); NEUTROPHILS % 59.8 % (36.0-66.0); PLATELET COUNT, AUTOMATED 374 10^3/uL (150-450); RED BLOOD COUNT 5.12 10^6/uL (4.00-5.40); WHITE BLOOD COUNT 7.1 10^3/uL (4.0-10.0)
[2020-06-28 09:15] VITALS: BP 120/76
[2020-06-28 09:36] LABS: ALBUMIN 3.5 GM/DL (3.2-5.2); ALT/SGPT 31 U/L (12-78); BILIRUBIN,TOTAL 0.8 MG/DL (0.2-1.0); BLOOD UREA NITROGEN 17 MG/DL (7-18); CALCIUM LEVEL 9.1 MG/DL (8.8-10.2); CARBON DIOXIDE LEVEL 23 MEQ/L (21-32); CHLORIDE LEVEL 111 MEQ/L (98-107); CREATININE FOR GFR 0.88 MG/DL (0.55-1.30); GLOMERULAR FILTRATION RATE > 60.0 (>45); GLUCOSE, FASTING 106 MG/DL (70-100); SODIUM LEVEL 142 MEQ/L (136-145); TOTAL PROTEIN 6.6 GM/DL (6.4-8.2)
[2020-06-28] MEDS ORDERED: CARD180C4 PO (10:57)
[2020-06-28] MEDS ORDERED: XARE20TA PO (10:57)
[2020-06-28] MEDS ORDERED: SLF 3 ML SYR IV PRN (11:45)
--- NOTE | 2020-06-28 12:22 | DS.PDOC ---
Discharge Summary General Date of Admission Jun 25, 2020 at 17:10 Date of Discharge 06/28/20 Discharge Summary PROCEDURES PERFORMED DURING STAY: [None]. ADMITTING DIAGNOSES: Atrial fibrillation with RVR Hypothyroidism Asthma DISCHARGE DIAGNOSES: Atrial fibrillation with RVR Hypothyroidism Asthma COMPLICATIONS/CHIEF COMPLAINT: Atrial Fibrillation With Rvr. HISTORY OF PRESENT ILLNESS: Patient is 60 years old female with past medical history of morbid obesity, asthma, hypothyroidism presented hospital with palpitations. Patient stated that around 12 noon time he has been having palpitation. She stated that she had palpitations for many years but she was never diagnosed with atrial fibrillation. Patient denies any chest pain, any shortness of breath but she stated that she has lightheadedness. In ER patient was found to have atrial fibrillation on EKG with rapid ventricular rate of 140. Patient received the dose of Lopressor and metoprolol 25 mg by mouth without effect. Labs pertinent for no leukocytosis. Patient does not have any fever, diarrhea or dysuria HOSPITAL COURSE: During hospital stay the following issue addressed (1) Atrial fibrillation with RVR c/w Diltiazem drip Xarelto TSH and T4 wnl Echo pending Troponin neg Continue loading with diltiazem PO Dr. Chavez increased the dose of diltiazem to 360 mg daily. Heart rate under control (2) Hypothyroidism Continue with levothyroxine (3) Asthma Not in acute exacerbation DISCHARGE MEDICATIONS: Please see below. ALLERGIES: Please see below. PHYSICAL EXAMINATION ON DISCHARGE: VITAL SIGNS: Please see below. GENERAL APPEARANCE: NAD HEENT: no scleral icterus, no JVD, EOMI CARDIOVASCULAR: Irregularly irregular LUNGS: CTA ABDOMEN: soft & not tender w palpitation MUSCULOSKELETAL: no cyanosis, no swelling INTEGUMENT: no generalized palor NEUROLOGICAL: cranial nerve function from 2-12 intact intact, follows commands, speech not dysarthric LABORATORY DATA: Please see below. PROGNOSIS: Fair ACTIVITY: [As tolerated]. DIET: Cardiac ITEMS TO FOLLOWUP ON ON OUTPATIENT: Follow-up with Dr. Chavez DISCHARGE CONDITION: [Stable]. TIME SPENT ON DISCHARGE: Greater than 30 minutes. Vital Signs/I&Os Vital Signs Date Time Temp Pulse Resp B/P (MAP) Pulse Ox O2 Delivery O2 Flow Rate FiO2 06/28/20 09:15 98 120/76 06/28/20 08:00 96.7 18 93 Room Air I&O- Last 24 Hours up to 6 AM 1/18/21 06:00 Intake Total 630 ml Output Total 0 ml Balance 630 ml Laboratory Data Labs 24H Laboratory Tests 2 06/28/20 08:40: Immature Granulocyte % (Auto) 0.3, Neutrophils (%) (Auto) 59.8, Lymphocytes (%) (Auto) 25.0, Monocytes (%) (Auto) 10.7H, Eosinophils (%) (Auto) 3.9H, Basophils (%) (Auto) 0.3, Neutrophils # (Auto) 4.2, Lymphocytes # (Auto) 1.8, Monocytes # (Auto) 0.8, Eosinophils # (Auto) 0.3, Basophils # (Auto) 0.0, Nucleated Red Blood Cells % (auto) 0.0, Anion Gap 8, Glomerular Filtration Rate > 60.0, Calcium Level 9.1, Magnesium Level 2.0, Total Bilirubin 0.8, Aspartate Amino Transf (AST/SGOT) 12, Alanine Aminotransferase (ALT/SGPT) 31, Alkaline Phosphatase 80, Total Protein 6.6, Albumin 3.5, Albumin/Globulin Ratio 1.1L CBC/BMP Laboratory Tests 06/28/20 08:40 Discharge Medications Scheduled Cholecalciferol (Vitamin D3) (Vitamin D3) 1,000 Unit Tablet, 1,000 UNITS PO QHS, (Reported) Diltiazem Hcl (Cardizem Cd) 180 Mg Cap.er.24h, 360 MG PO DAILY Fluticasone/Vilanterol (Breo Ellipta 200-25 Mcg INH) 1 Each Blst.w.dev, 1 PUFF PO QHS, (Reported) Levothyroxine Sodium (Synthroid) 125 Mcg Tablet, 125 MCG PO DAILY, (Reported) Multivitamin (Multi-Vitamin Daily) 1 Each Tablet, 1 TAB PO QHS, (Reported) Rivaroxaban (Xarelto) 20 Mg Tablet, 20 MG PO DAILY@18 Allergies Coded Allergies: Latex, Natural Rubber (Verified Allergy, Intermediate, rash, 05/17/20) clarithromycin (Verified Allergy, Intermediate, burning mouth, 05/17/20) Opioids - Morphine Analogues (Verified Allergy, Unknown, "pt able to take nucynta", 05/17/20) Opioids-Meperidine and Related (Verified Allergy, Unknown, "pt able to take nucynta", 05/17/20) MUNA DELGADO 18, 2021 12:22
[2020-06-28] MEDS ORDERED: SLF 3 ML SYR IV SCH (14:00)
--- NOTE | 2020-06-29 09:02 | ECHO ---
DATE OF PROCEDURE: 06/28/2020 Age: 60 Gender: Female Height: 165 cm Weight: 113 kg REFERRING PHYSICIAN: Stevie Caldwell DO. INDICATION: Dysrhythmia. MEASUREMENTS: IVS 0.9 cm LV 5.0 cm LVPW 1.0 cm LA 3.3 cm Aorta 2.8 cm RV 3.3 cm Left atrial volume index 28 mL/m2 IVC 1.3 FINDINGS: This study is of acceptable technical quality, especially considering the patients body habitus. The patient is in atrial fibrillation with mildly tachycardic rate averaging approximately 105 to 110 beats per minute. Left ventricle has normal size and contractility. I estimate LVEF 65% to 70%. No segmental wall motion abnormalities are appreciated. Right ventricle is also normal size and systolic function. Both atria appear normal. Aortic, mitral, tricuspid, and pulmonic valves were all well seen and appear normal. No pericardial effusion is noted, but there is a small pericardial fat pad. Aortic root is normal. Aortic arch and abdominal aorta also appear normal. Inferior vena cava is normal size and appropriately collapses with inspiration indicative of normal central venous pressure. Doppler interrogation reveals competent aortic and mitral valves. There is trace tricuspid insufficiency. Calculated pulmonary artery pressure is within normal limits. Pulmonic valve is also functionally competent. Evaluation of diastolic function is inconclusive due to underlying atrial fibrillation, but tissue Doppler velocity of the mitral annulus are within normal range. CONCLUSIONS: 1. Study is of good technical quality, underlying atrial fibrillation with mildly tachycardic rate. 2. Normal LV size and systolic function. 3. Normal RV size and systolic function. 4. No significant valvular disease. 5. Normal size atria. 6. Normal central venous pressure. 7. Normal pulmonary artery pressure. MTDD
== END 2020-06-28 13:52 | disposition home or self-care (01) | DRG 201 ==
LOC: M ED 15:07 → M ED INP 17:10 → M PCU 06-26 15:49
PROVIDERS: ADMIT Internal Medicine; ATTEND Internal Medicine
DX: I48.91 Unspecified atrial fibrillation (principal); Z68.41 Body mass index [BMI] 40.0-44.9, adult; E66.01 Morbid (severe) obesity due to excess calories; J45.909 Unspecified asthma, uncomplicated; E03.9 Hypothyroidism, unspecified; Z79.899 Other long term (current) drug therapy; Z91.040 Latex allergy status; Z88.5 Allergy status to narcotic agent; Z88.1 Allergy status to other antibiotic agents; Z98.84 Bariatric surgery status; Z96.651 Presence of right artificial knee joint; Z11.52 Encounter for screening for COVID-19

== ENCOUNTER → 2021-09-22 | Outpatient (CLI) | payer BC, OTHER ==
[~2021-09-22] MED LIST changes: +CARD180C4 PO; +MULTTAB86 PO; +SYNT125T PO; +VITA100093 PO; +XARE20TA PO
== END ==
LOC: M WHC 08:01
PROVIDERS: ATTEND Internal Medicine
DX: Z12.31 Encounter for screening mammogram for malignant neoplasm of breast (principal)

== ENCOUNTER → 2021-11-23 | Outpatient (CLI) | payer BC, OTHER ==
[~2021-11-23] MED LIST changes: +ISOVUE-370 76% 100ML VIAL As Ordered ONE
== END ==
LOC: M RAD 10:16
PROVIDERS: ATTEND Internal Medicine
DX: R07.89 Other chest pain (principal); Z98.84 Bariatric surgery status
CPT/HCPCS: 71260; Q9967

== ENCOUNTER → 2022-01-26 | Outpatient (CLI) | payer BC, OTHER ==
[~2022-01-26] MED LIST changes: +CALC600T61 PO; +CYAN2500 SL; -ISOVUE-370 76% 100ML VIAL As Ordered ONE; +MAGN400C PO; +ZINCLOZ9 PO
== END ==
LOC: M LABSMTC 09:15
PROVIDERS: ATTEND Anesthesiology
DX: Z01.812 Encounter for preprocedural laboratory examination (principal); Z11.52 Encounter for screening for COVID-19

== ENCOUNTER 2022-01-31 06:04 | Day surgery (SDC) | payer BC, OTHER ==
[~2022-01-31] VITALS: Ht 165.1 cm; Wt 106.2 kg
[~2022-01-31 06:04] MED LIST changes: +ceFAZolin SOD 2 GM in IV 1 EA IV ONE
[2022-01-31] MEDS ORDERED: propofoL 200 MG/20 ML VIAL As Ordered ONE ×2 (06:48→06:49)
[2022-01-31] MEDS ORDERED: LIDOCAINE 2% 100MG/5ML SDV (FOR ANES.) As Ordered ONE (06:49)
[2022-01-31] MEDS ORDERED: MIDAZOLAM INJ 2MG/2ML VIAL (J2250 PER 1MG) As Ordered ONE (06:52)
[2022-01-31] MEDS ORDERED: fentaNYL 100 MCG/2 ML INJECTION As Ordered ONE (06:52)
[2022-01-31] MEDS ORDERED: ACETAMINOPHEN 1000MG 100ML IV BTL (OFIRMEV) (J0131 PER 10MG) As Ordered ONE (07:02)
[2022-01-31] MEDS ORDERED: KETOROLAC 60MG 2ML VIAL As Ordered ONE (07:02)
[2022-01-31] MEDS ORDERED: ONDANSETRON 4MG 2ML VIAL As Ordered ONE (07:02)
[2022-01-31] MEDS ORDERED: dexameTHASONE 4 MG/ML 1ML VIAL (J1100 PER 1MG) As Ordered ONE (07:02)
[2022-01-31] MEDS ORDERED: BUPIVACAINE/EPIN 0.25% 30 ML VIAL As Ordered ONE (07:10)
[2022-01-31] MEDS ORDERED: LR 1,000 ML IV SCH (07:20)
[2022-01-31] MEDS ORDERED: LIDOCAINE 1% SDV 30ML VIAL As Ordered ONE (07:45)
[2022-01-31 08:40] VITALS: BP 116/68
== END 2022-01-31 08:55 | disposition home or self-care (01) ==
LOC: M SDC 06:04
PROVIDERS: ATTEND Surgery
DX: D17.1 Benign lipomatous neoplasm of skin and subcutaneous tissue of trunk (principal); M19.90 Unspecified osteoarthritis, unspecified site; I48.91 Unspecified atrial fibrillation; J45.909 Unspecified asthma, uncomplicated; Z91.040 Latex allergy status; Z88.5 Allergy status to narcotic agent; Z88.1 Allergy status to other antibiotic agents
CPT/HCPCS: 21932; 88304; J0131; J0690; J1885; J2250; J2405; J3010

== ENCOUNTER → 2022-03-23 | Outpatient (CLI) | payer BC, OTHER ==
[~2022-03-23] MED LIST changes: -ceFAZolin SOD 2 GM in IV 1 EA IV ONE
[2022-03-23 10:36] LABS: BLOOD UREA NITROGEN 13 MG/DL (7-18); CARBON DIOXIDE LEVEL 27 MEQ/L (21-32); CHLORIDE LEVEL 111 MEQ/L (98-107); CREATININE FOR GFR 0.87 MG/DL (0.55-1.30); GLOMERULAR FILTRATION RATE > 60.0 (>45); GLUCOSE, FASTING 96 MG/DL (70-100); POTASSIUM SERUM 4.5 MEQ/L (3.5-5.1); SODIUM LEVEL 141 MEQ/L (136-145)
== END ==
LOC: M LAB 09:11
PROVIDERS: ATTEND Internal Medicine Cardiovascular Disease
DX: I48.0 Paroxysmal atrial fibrillation (principal)

== ENCOUNTER 2022-08-05 09:56 | Emergency (ER) | payer MEDICARE, BC, OTHER ==
[~2022-08-05] VITALS: Ht 165.1 cm; Wt 240.0 kg
[2022-08-05] MEDS ORDERED: OMEP-173 (10:15)
[2022-08-05] MEDS ORDERED: ACETAMINOPHEN 500 MG TAB PO ONE (11:05)
[2022-08-05] MEDS ORDERED: NUCY50TA14 PO ×2 (11:53→12:14)
[2022-08-05] MEDS ORDERED: SILV1CRE60 TOP (11:58)
[2022-08-05] MEDS ORDERED: BACIOIN5 OP (11:58)
[2022-08-05 12:10] VITALS: BP 126/68
== END 2022-08-05 12:22 | disposition home or self-care (01) ==
LOC: M ED 09:56
DX: T22.212A Burn of second degree of left forearm, initial encounter (principal); T23.151A Burn of first degree of right palm, initial encounter; T31.0 Burns involving less than 10% of body surface; X10.2XXA Contact with fats and cooking oils, initial encounter; Y92.099 Unspecified place in other non-institutional residence as the place of occurrence of the external cause; I48.91 Unspecified atrial fibrillation; E03.9 Hypothyroidism, unspecified; J45.909 Unspecified asthma, uncomplicated; Z79.890 Hormone replacement therapy; Z79.01 Long term (current) use of anticoagulants; Z79.899 Other long term (current) drug therapy; Z91.040 Latex allergy status; Z88.5 Allergy status to narcotic agent; Z88.1 Allergy status to other antibiotic agents

== ENCOUNTER 2023-09-07 18:09 | Emergency (ER) | payer MEDICARE, BC, OTHER ==
[~2023-09-07] VITALS: Ht 165.1 cm; Wt 109.4 kg
[~2023-09-07 18:09] MED LIST changes: +BACIOIN5 OP; +NUCY50TA14 PO; +OMEP-173; +SILV1CRE60 TOP
[2023-09-07 18:12] VITALS: TEMP 98.1
[2023-09-07] MEDS: ASPIRIN 81MG CHEW TABLET PO ONE (19:33)
[2023-09-07 19:52] LABS: HEMATOCRIT 37.3 % (36.0-47.0); HEMOGLOBIN 11.6 g/dl (12.0-15.5); LYMPH % 26.8 % (24.0-44.0); MEAN CORPUSCULAR HEMOGLOBIN 27.4 pg (27.0-33.0); MEAN CORPUSCULAR HGB CONC 31.1 g/dl (32.0-36.5); NEUTROPHILS % 57.2 % (36.0-66.0); PLATELET COUNT, AUTOMATED 434 10^3/uL (150-450); RED BLOOD COUNT 4.24 10^6/uL (4.00-5.40); WHITE BLOOD COUNT 5.5 10^3/uL (4.0-10.0)
[2023-09-07 19:53] LABS: BASO % 0.4 % (0.0-1.0); EOS # 0.3 10^3/uL (0.0-0.5); EOS % 4.7 % (0.0-3.0); LYMPH # 1.5 10^3/uL (1.5-5.0); MONO # 0.6 10^3/uL (0.0-0.8); MONO % 10.7 % (2.0-8.0); NEUTROPHILS # 3.2 10^3/uL (1.5-8.5)
[2023-09-07 20:04] LABS: CK-MB VALUE MASS < 1.0 NG/ML (<3.6)
[2023-09-07 20:06] LABS: LIPASE 37 U/L (12-53)
[2023-09-07 20:07] LABS: CPK CREATINE PHOSPHOKINASE 82 U/L (34-145); MB/CK RELATIVE INDEX 1.21 (< OR =4)
[2023-09-07 20:08] LABS: ALBUMIN 3.5 G/DL (3.2-5.2); ALKALINE PHOSPHATASE 75 U/L (46-116); ALT/SGPT 17 U/L (7.0-40); AST/SGOT 12 U/L (<34); BILIRUBIN,DIRECT 0.2 MG/DL (<0.4); BILIRUBIN,TOTAL 0.4 MG/DL (0.3-1.2); BLOOD UREA NITROGEN 15 MG/DL (9-23); CALCIUM LEVEL 8.4 MG/DL (8.3-10.6); CARBON DIOXIDE LEVEL 27 MMOL/L (20-31); CHLORIDE LEVEL 109 MMOL/L (98-107); CREATININE FOR GFR 0.72 MG/DL (0.55-1.30); FREE T4 1.07 NG/DL (0.89-1.76); GLOMERULAR FILTRATION RATE > 60.0 (>45); GLUCOSE, FASTING 93 MG/DL (74-106); POTASSIUM SERUM 4.6 MMOL/L (3.5-5.1); SODIUM LEVEL 141 MMOL/L (136-145)
[2023-09-07 20:09] LABS: THYROID STIMULATING HORMONE 3.627 uIU/ML (0.55-4.78)
[2023-09-07 20:15] VITALS: BP 119/67; O2SAT 93
== END 2023-09-07 20:52 | disposition home or self-care (01) ==
LOC: M ED 18:09
DX: R07.9 Chest pain, unspecified (principal); I48.91 Unspecified atrial fibrillation; K21.9 Gastro-esophageal reflux disease without esophagitis; J45.909 Unspecified asthma, uncomplicated; E03.9 Hypothyroidism, unspecified; Z88.8 Allergy status to other drugs, medicaments and biological substances; Z91.040 Latex allergy status; Z79.2 Long term (current) use of antibiotics; Z79.810 Long term (current) use of selective estrogen receptor modulators (SERMs); Z79.899 Other long term (current) drug therapy

== ENCOUNTER → 2024-10-17 | Outpatient (REF) | payer MEDICARE, BC, OTHER | LOC: M LAB REF 12:37 | PROVIDERS: ATTEND Physician Assistant | DX: B34.9 Viral infection, unspecified (principal) ==